=== PATIENT | female | born 1965 | race American Indian/Alaskan Native ===

== ENCOUNTER 2018-03-05 23:15 | Inpatient (IN) | payer MEDICARE, OTHER ==
[2018-03-05 23:17] VITALS: BMI 43.9
--- NOTE | 2018-03-06 00:01 | C.PDOC ---
History Of Present Illness 52 y/o female referred to the ED by Dr. Bocanegra for pre-operative labs and admission to the OR. Patient has known peripheral arterial disease and was noted to have poor circulation to the right lower extremity along with black discoloration of the right toe. She had an arteriogram and was recommended to have a re-vascularization procedure. Patient complains of worsening claudication symptoms to both legs, worse on the right vs the left. She denies any fever, chills, chest pain, or SOB. Time Seen by Provider: 03/05/18 23:50 Chief Complaint (Nursing): Medical Clearance History Per: Patient History/Exam Limitations: no limitations Onset/Duration Of Symptoms: Days Current Symptoms Are (Timing): Still Present Past Medical History Reviewed: Historical Data, Nursing Documentation, Vital Signs Vital Signs: Last Vital Signs Temp 97.6 F 03/05/18 23:47 Pulse 89 03/05/18 23:47 Resp 18 03/05/18 23:47 BP 143/80 03/05/18 23:47 Pulse Ox 98 03/06/18 00:18 - Medical History PMH: CAD, CVA, Diabetes (insulin dependent DM), HTN, Hypercholesterolemia Denies: Chronic Kidney Disease Surgical History: Coronary Stent (5 stents) Other Surgeries: Hysterectomy Family History: States: No Known Family Hx - Social History Hx Tobacco Use: No Hx Alcohol Use: No Hx Substance Use: No - Immunization History Hx Tetanus Toxoid Vaccination: No Hx Influenza Vaccination: No Hx Pneumococcal Vaccination: No Review Of Systems Except As Marked, All Systems Reviewed And Found Negative. Constitutional: Negative for: Fever, Chills Cardiovascular: Negative for: Chest Pain Respiratory: Negative for: Shortness of Breath Musculoskeletal: Positive for: Other (discoloration to right great toe, worsening circulation at bilateral LE) Physical Exam - Physical Exam Appears: No Acute Distress, Other (Appears older than stated age) Skin: Warm, Dry Head: Atraumatic, Normacephalic Eye(s): bilateral: Normal Inspection, PERRL, EOMI Nose: Normal Oral Mucosa: Moist Neck: Normal ROM, Supple (with no JVD) Chest: Symmetrical Cardiovascular: Rhythm Regular, No Murmur, Other (S1,S2 are wnl) Respiratory: Normal Breath Sounds, No Rales, No Rhonchi, No Wheezing Gastrointestinal/Abdominal: Soft, No Tenderness, No Distention Extremity: Normal ROM, No Calf Tenderness, Capillary Refill (< 2 sec), Other ( Blackened discoloration of the right great toe, skin is warm to touch) Pulses: Left Dorsalis Pedis: Absent, Right Dorsalis Pedis: Absent Neurological/Psych: Oriented x3, Normal Speech, Normal Cranial Nerves, No Other (focal deficits) ED Course And Treatment - Laboratory Results Result Diagrams: 03/06/18 00:17 03/06/18 00:17 ECG: Interpreted By Me ECG Rhythm: Sinus Rhythm, Nonspecific Changes ECG Interpretation: Normal Interpretation Of ECG: nl ekg O2 Sat by Pulse Oximetry: 98 (RA) Pulse Ox Interpretation: Normal Medical Decision Making Medical Decision Making: Initial impression: Severe peripheral arterial disease with dry gangrene through right great toe Time: 23:59 Plan: * Routine labs * Chest x-ray * IVF hydration * Call placed to Dr. Bocanegra 00:[address] Bocanegra. Patient will be admitted to the OR for surgery in the morning. 00:10 director of residential services paged, will come to evaluate pt in the ER Disposition - Disposition - Scribe Statement The provider has reviewed the documentation as recorded by the Scribe (Michelle Leo) Provider Attestation: All medical record entries made by the Scribe were at my direction and personally dictated by me. I have reviewed the chart and agree that the record accurately reflects my personal performance of the history, physical exam, medical decision making, and the department course for this patient. I have also personally directed, reviewed, and agree with the discharge instructions and disposition.
[2018-03-06 00:22] LABS: BASO % 0.5 % (0.0-2.0); EOS # 0.1 K/uL (0.0-0.7); HEMOGLOBIN 11.3 g/dL (11.0-16.0); LYMPH # 2.3 K/uL (1.0-4.3); LYMPH % 28.4 % (20.0-40.0); MEAN CELL VOLUME 83.3 fL (81.0-99.0); MEAN CORPUSCULAR HEMOGLOBIN 27.4 pg (27.0-31.0); MEAN CORPUSCULAR HGB CONC 32.8 g/dL (33.0-37.0); MEAN PLATELET VOLUME 7.8 fL (7.2-11.7); MONO # 0.7 K/uL (0.0-0.8); MONO % 8.2 % (0.0-10.0); NEUT % 61.9 % (50.0-75.0); RBC 4.13 Mil/uL (3.80-5.20); RED CELL DISTRIBUTION WIDTH 13.5 % (11.5-14.5)
[2018-03-06 00:37] LABS: ALBUMIN 3.9 g/dL (3.5-5.0); ALT/SGPT 9 U/L (9-52); AST/SGOT 23 U/L (14-36); BLOOD UREA NITROGEN 18 mg/dL (7-17); CALCIUM 9.3 mg/dl (8.6-10.4); GFR AFRICAN-AMERICAN > 60; GFR NON-AFRICAN AMERICAN > 60
[2018-03-06] MEDS ORDERED: HYDROmorphone 1 mg/ml ISec IVP PRN (00:45)
--- NOTE | 2018-03-06 00:53 | CP.PCM.HP ---
History of Present Illness - History of Present Illness History of Present Illness: Vascular surgery H & P for Dr. Bocanegra-Bianca Salgado, PGY-1 Pt S & E at bedside. 52F w/PMH sig for PVD and other co-morbidities admitted for R hallux gangrene. Pt reports pain x 3 wks with subsequent tissue deterioration. Pain is constant , "tight" sensation, radiates up leg, variable in intensity. Reports taking oxycodone at home for pain with some relief. Pt saw shop fitter then syrup maker cook for evaluation with recommendation to see Dr. Bocanegra. Pt sent in by Dr. Bocanegra with plans for angio. Admits to numbness, tingling, low back pain, vision changes, chronic constipation, and L sided motor weakness (chronic) . Denies N & V, F & C, recent illness, changes to bladder habits, other complaints. PMH: PVD, DM, HTN, HLD, CAD, CVA x 4, VA x 1, hx gallstones, chronic constipation PSH: L 3rd digit sx, PCI s/p stents x 5, hx R groin abscess I & D All: NKDA SH: Denies ETOH, tobacco, illicit drug use Present on Admission - Present on Admission Any Indicators Present on Admission: No History of DVT/PE: No History of Uncontrolled Diabetes: No Urinary Catheter: No Decubitus Ulcer Present: No Review of Systems - Review of Systems All systems: reviewed and no additional remarkable complaints except - Constitutional Constitutional: Weakness (residual, L sided (chronic)). absent: Chills, Fever, Headache - EENT Eyes: Change in Vision (chronic) Ears: absent: Dizziness Nose/Mouth/Throat: absent: Sore Throat - Cardiovascular Cardiovascular: Chest Pain (occasional), Dyspnea on Exertion, Leg Edema (chronic ). absent: Palpitations - Respiratory Respiratory: absent: Cough - Gastrointestinal Gastrointestinal: Constipation (chronic). absent: Abdominal Pain, Change in Bowel Habits, Diarrhea, Nausea, Vomiting - Genitourinary Genitourinary: absent: Change in Urinary Stream, Dysuria - Musculoskeletal Musculoskeletal: Back Pain (low, chronic), Muscle Weakness (L sided, chronic), Numbness (chronic), Tingling (chronic) - Integumentary Integumentary: absent: New Lesions - Neurological Neurological: Numbness, Tingling - Psychiatric Psychiatric: absent: Change in Appetite Past Patient History - Infectious Disease Hx of Infectious Diseases: None - Past Social History Smoking Status: Never Smoked - CARDIAC Hx Hypercholesterolemia: Yes Hx Hypertension: Yes - NEUROLOGICAL HX Cerebrovascular Accident: Yes - RENAL Hx Chronic Kidney Disease: No - ENDOCRINE/METABOLIC Hx Diabetes Mellitus Type 2: Yes - PSYCHIATRIC Hx Substance Use: No - SURGICAL HISTORY Hx Coronary Stent: Yes (5 stents) - ANESTHESIA Hx Anesthesia: Yes Hx Anesthesia Reactions: No Meds Allergies/Adverse Reactions: Allergies Allergy/AdvReac Type Severity Reaction Status Date / Time morphine Allergy Verified 03/05/18 23:48 Physical Exam - Constitutional Appears: Non-toxic, No Acute Distress - Head Exam Head Exam: ATRAUMATIC, NORMAL INSPECTION, NORMOCEPHALIC - Eye Exam Eye Exam: EOMI, Normal appearance - ENT Exam ENT Exam: Mucous Membranes Moist, Normal Exam - Neck Exam Neck exam: Positive for: Full Rom, Normal Inspection - Respiratory Exam Respiratory Exam: NORMAL BREATHING PATTERN - Cardiovascular Exam Cardiovascular Exam: REGULAR RHYTHM, +S1, +S2 - GI/Abdominal Exam GI & Abdominal Exam: Soft. absent: Distended (obese), Tenderness - Extremities Exam Extremities exam: Positive for: tenderness (B/L LE). Negative for: normal inspection (R hallux skin darkened), pedal pulses present (non palpable DP & TP B/L) - Neurological Exam Neurological exam: Alert, CN II-XII Intact, Oriented x3 - Psychiatric Exam Psychiatric exam: Normal Affect, Normal Mood - Skin Skin Exam: Dry, Intact, Normal Color (excluding R hallux, see extremity exam for findings), Warm Results - Vital Signs Recent Vital Signs: Last Vital Signs Temp 97.6 F 03/05/18 23:47 Pulse 89 03/05/18 23:47 Resp 18 03/05/18 23:47 BP 143/80 03/05/18 23:47 Pulse Ox 98 03/06/18 00:18 - Labs Result Diagrams: 03/06/18 00:17 03/06/18 00:17 Labs: Laboratory Results - last 24 hr 03/05/18 03/06/18 03/06/18 23:44 00:17 00:17 WBC 8.0 RBC 4.13 Hgb 11.3 Hct 34.4 MCV 83.3 MCH 27.4 MCHC 32.8 L RDW 13.5 Plt Count 327 D MPV 7.8 Neut % (Auto) 61.9 Lymph % (Auto) 28.4 [place] % (Auto) 8.2 Eos % (Auto) 1.0 Baso % (Auto) 0.5 Neut # (Auto) 5.0 Lymph # (Auto) 2.3 [place] # (Auto) 0.7 Eos # (Auto) 0.1 Baso # (Auto) 0.0 Sodium 140 Potassium 4.1 Chloride 99 Carbon Dioxide 27 Anion Gap 18 BUN 18 H Creatinine 0.7 Est GFR ( Amer) > 60 Est GFR (Non-Af Amer) > 60 POC Glucose (mg/dL) 278 H Random Glucose 309 H Calcium 9.3 Total Bilirubin 0.5 AST 23 ALT 9 D Alkaline Phosphatase 133 H Total Protein 8.0 Albumin 3.9 Globulin 4.0 H Albumin/Globulin Ratio 1.0 Assessment & Plan - Assessment and Plan (Free Text) Assessment: 52F w/PMH sig for PVD and other comorbidities admitted for R hallux gangrene Plan: Admit to med-surg VS Q4H NPO pMN Plans for angio tomorrow consent in chart pain control ISS Anti-emetic IVF ISS Accuchecks FU EKG FU CXR Plan to resume home meds DW attending Naomi, PGY-1 - Date & Time Date: 03/06/18 Time: 00:55 Decision To Admit - Pt Status Changed To: Hospital Disposition Of: Inpatient - Admit Certification Admit to Inpatient:: After my assessment, the patient will require hospitalization for at least two midnights. This is because of the severity of symptoms shown, intensity of services needed, and/or the medical risk in this patient being treated as an outpatient. - InPatient: Physician Admission Certification:: Need for vascular surgery intervention - . Bed Request Type: Regular Admitting Physician: Phil Bocanegra Jr.
[2018-03-06] MEDS: Sodium Chloride 0.9% 1,000 ML IV SCH ×2 (00:59→09:19)
[2018-03-06 03:12] VITALS: RESP 20
[2018-03-06] MEDS ORDERED: (Novolin 70/30) NPH/Regular 70/30 Units/ml 10 ml vial SC SCH ×2 (07:30→11:30)
[2018-03-06] MEDS ORDERED: (Novolin R) Insulin Human Regular 100 units/ml vial SC SCH ×2 (11:30→12:22)
[2018-03-06 12:32] LABS: INR 0.9; PROTHROMBIN TIME 10.7 SECONDS (9.7-12.2)
--- NOTE | 2018-03-06 12:55 | RAD ---
PROCEDURE: CHEST RADIOGRAPH, 1 VIEW HISTORY: SOB COMPARISON: 05/29/2013 FINDINGS: LUNGS: Clear. PLEURA: No pneumothorax or pleural fluid seen. CARDIOVASCULAR: No radiographic findings to suggest acute or significant cardiovascular disease. OSSEOUS STRUCTURES: No significant abnormalities. VISUALIZED UPPER ABDOMEN: Normal. OTHER FINDINGS: None. IMPRESSION: No active disease. No acute/significant interval changes.
[2018-03-06] MEDS ORDERED: Midazolam 2 MG/2 ML VIAL ONE (13:31)
--- NOTE | 2018-03-06 15:31 | PCM.SURG1 ---
Surgeon's Initial Post Op Note - Surgeon's Notes Surgeon: alicja Marketing Operations Manager: 0 Type of Anesthesia: IV Sedation Anesthesia Administered By: perez abraham Pre-Operative Diagnosis: gangrene right foot/great toe Operative Findings: right common femoral stenosis 40%. occlusion proximal right sfa. completion films showed dissection below treated area. perclose left groin Post-Operative Diagnosis: same Operation Performed: aortofemoral angiogram via left groin. selective angiogram right femoral artery. pathway atherectomy of right sfa/food assembler kitchen. dcb angioplasty. 5x80 stent right sfa Specimen/Specimens Removed: 0 Estimated Blood Loss: EBL {In ML}: 25 Blood Products Given: N/A Drains Used: No Drains Post-Op Condition: Good Date of Surgery/Procedure: 03/06/18 Time of Surgery/Procedure: 15:33
[2018-03-06] MEDS ORDERED: Dextrose 5%/0.45% NS 1,000 ML IV SCH (15:45)
[2018-03-06 17:34] VITALS: BP 144/89; PULSE 73; TEMP 97.4; O2SAT 98
--- NOTE | 2018-03-06 18:48 | CP.PCM.DIS ---
Provider - Provider Date of Admission: 03/06/18 00:34 Attending physician: Phil Bocanegra Jr, MD Time Spent in preparation of Discharge (in minutes): 35 Hospital Course - Lab Results Lab Results: Most Recent Lab Values WBC 8.0 K/uL (4.8-10.8) 03/06/18 00:17 RBC 4.13 Mil/uL (3.80-5.20) 03/06/18 00:17 Hgb 11.3 g/dL (11.0-16.0) 03/06/18 00:17 Hct 34.4 % (34.0-47.0) 03/06/18 00:17 MCV 83.3 fL (81.0-99.0) 03/06/18 00:17 MCH 27.4 pg (27.0-31.0) 03/06/18 00:17 MCHC 32.8 g/dL (33.0-37.0) L 03/06/18 00:17 RDW 13.5 % (11.5-14.5) 03/06/18 00:17 Plt Count 327 K/uL (130-400) D 03/06/18 00:17 MPV 7.8 fL (7.2-11.7) 03/06/18 00:17 Neut % (Auto) 61.9 % (50.0-75.0) 03/06/18 00:17 Lymph % (Auto) 28.4 % (20.0-40.0) 03/06/18 00:17 [place] % (Auto) 8.2 % (0.0-10.0) 03/06/18 00:17 Eos % (Auto) 1.0 % (0.0-4.0) 03/06/18 00:17 Baso % (Auto) 0.5 % (0.0-2.0) 03/06/18 00:17 Neut # (Auto) 5.0 K/uL (1.8-7.0) 03/06/18 00:17 Lymph # (Auto) 2.3 K/uL (1.0-4.3) 03/06/18 00:17 [place] # (Auto) 0.7 K/uL (0.0-0.8) 03/06/18 00:17 Eos # (Auto) 0.1 K/uL (0.0-0.7) 03/06/18 00:17 Baso # (Auto) 0.0 K/uL (0.0-0.2) 03/06/18 00:17 PT 10.7 SECONDS (9.7-12.2) 03/06/18 12:20 INR 0.9 03/06/18 12:20 APTT 29 SECONDS (21-34) 03/06/18 12:20 Sodium 140 mmol/L (132-148) 03/06/18 00:17 Potassium 4.1 mmol/L (3.6-5.2) 03/06/18 00:17 Chloride 99 mmol/L (98-107) 03/06/18 00:17 Carbon Dioxide 27 mmol/L (22-30) 03/06/18 00:17 Anion Gap 18 (10-20) 03/06/18 00:17 BUN 18 mg/dL (7-17) H 03/06/18 00:17 Creatinine 0.7 mg/dL (0.7-1.2) 03/06/18 00:17 Est GFR ( Amer) > 60 03/06/18 00:17 Est GFR (Non-Af Amer) > 60 03/06/18 00:17 POC Glucose (mg/dL) 283 mg/dL (65-110) H 03/06/18 16:30 Random Glucose 309 mg/dL (65-105) H 03/06/18 00:17 Calcium 9.3 mg/dl (8.6-10.4) 03/06/18 00:17 Total Bilirubin 0.5 mg/dL (0.2-1.3) 03/06/18 00:17 AST 23 U/L (14-36) 03/06/18 00:17 ALT 9 U/L (9-52) D 03/06/18 00:17 Alkaline Phosphatase 133 U/L (38-126) H 03/06/18 00:17 Total Protein 8.0 g/dL (6.3-8.3) 03/06/18 00:17 Albumin 3.9 g/dL (3.5-5.0) 03/06/18 00:17 Globulin 4.0 gm/dL (2.2-3.9) H 04/17/18 00:17 Albumin/Globulin Ratio 1.0 (1.0-2.1) 03/06/18 00:17 Blood Type AB POSITIVE 03/06/18 00:17 Antibody Screen Negative 03/06/18 00:17 Discharge Exam - Head Exam Head Exam: ATRAUMATIC, NORMAL INSPECTION, NORMOCEPHALIC Discharge Plan - Follow Up Plan Condition: GOOD Disposition: HOME/ ROUTINE Additional Instructions: It is ok for patient to ambulate Remove the dressing tomorrow if there is no bleeding Call Dr. Bocanegra's office for any severe abdominal or back pain, fever greater than 100.4F that doesn't improve with tylenol, severe pain in the right leg with numbness, weakness, coldness, or pallor of the leg, or any other concerning symptoms. Make a follow up appointment with Dr. Bocanegra in his office in 1 weeks. Referrals: Phil Bocanegra Jr., MD [Staff Provider] -
[2018-03-06] MEDS ORDERED: (Novolog) Insulin Aspart, Recombinant 100 u/ml 10 ml vial SC SCH (22:00)
[2018-03-08] MEDS ORDERED: Pneumococcal 23-Valent Vaccine IM ONE (14:00)
== END 2018-03-06 19:47 | disposition home or self-care (01) | DRG 271 ==
LOC: C.ER 23:15 → C.9E 03-06 00:34 → C.5S 03-06 02:22
PROVIDERS: ADMIT Surgery Vascular Surgery; ATTEND Surgery Vascular Surgery
PROC: 04CK3ZZ Extirpation of Matter from Right Femoral Artery, Percutaneous Approach (ICD-10-PCS; principal; 2018-03-06)
PROC: 047K3DZ Dilation of Right Femoral Artery with Intraluminal Device, Percutaneous Approach (ICD-10-PCS; 2018-03-06)
DX: E11.52 Type 2 diabetes mellitus with diabetic peripheral angiopathy with gangrene (principal); I96 Gangrene, not elsewhere classified; Z68.41 Body mass index [BMI] 40.0-44.9, adult; E78.00 Pure hypercholesterolemia, unspecified; E78.5 Hyperlipidemia, unspecified; I10 Essential (primary) hypertension; I25.10 Atherosclerotic heart disease of native coronary artery without angina pectoris; K59.09 Other constipation; Z79.4 Long term (current) use of insulin; E66.9 Obesity, unspecified; I77.1 Stricture of artery

== ENCOUNTER 2018-09-21 00:12 | Inpatient (IN) | payer MEDICARE, OTHER ==
[2018-09-21 00:12] VITALS: BMI 43.9
--- NOTE | 2018-09-21 00:33 | C.PDOC ---
History Of Present Illness Presents to the ED complaining of pain to the great toe. The patient states she saw her pullboat engineer earlier today, Dr. Hunter, who referred her to the ED due to early gangrene. The patient reports pain to the right foot. Time Seen by Provider: 09/21/18 00:33 Chief Complaint (Nursing): Lower Extremity Problem/Injury History Per: Patient History/Exam Limitations: no limitations Onset/Duration Of Symptoms: Hrs Current Symptoms Are (Timing): Still Present Severity: Moderate Pain Scale Rating Of: 5 Recent travel outside of the [place]: No Past Medical History Reviewed: Historical Data, Nursing Documentation, Vital Signs Vital Signs: Last Vital Signs Temp 98.9 F 09/21/18 00:17 Pulse 101 H 09/21/18 00:17 Resp 20 09/21/18 00:17 BP 173/89 H 09/21/18 00:17 Pulse Ox 99 09/21/18 00:17 - Medical History PMH: CAD, CVA, Diabetes (insulin dependent DM), HTN, Hypercholesterolemia Denies: Chronic Kidney Disease Surgical History: Coronary Stent (5 stents) - [facility] Procedures DILATION OF R FEM ART WITH INTRALUM DEV, PERC APPROACH (03/06/18) EXTIRPATION OF MATTER FROM R FEM ART, PERC APPROACH (03/06/18) Family History: States: Unknown Family Hx - Social History Hx Tobacco Use: No Hx Alcohol Use: No Hx Substance Use: No - Immunization History Hx Tetanus Toxoid Vaccination: No Hx Influenza Vaccination: No Hx Pneumococcal Vaccination: No Review Of Systems Constitutional: Negative for: Fever, Chills Eyes: Negative for: Vision Change ENT: Negative for: Throat Pain Cardiovascular: Negative for: Chest Pain Respiratory: Negative for: Shortness of Breath Gastrointestinal: Negative for: Abdominal Pain Genitourinary: Negative for: Dysuria Musculoskeletal: Positive for: Foot Pain (right great toe pain) Skin: Positive for: Lesions Neurological: Negative for: Weakness Psych: Negative for: Anxiety Physical Exam - Physical Exam Appears: Non-toxic, No Acute Distress Skin: Warm, Dry Head: Normacephalic Eye(s): bilateral: Normal Inspection Oral Mucosa: Moist Neck: Trachea Midline, Supple Chest: Symmetrical Cardiovascular: Rhythm Regular Respiratory: No Rales, No Rhonchi, No Wheezing Gastrointestinal/Abdominal: Soft, No Tenderness, No Distention Back: Normal Inspection Extremity: Tenderness (to palpation-- right great toe) Extremity: Right: Other (necrosis, purulent collection on ventral aspect, sensory intact and moves all toes), Bilateral: Atraumatic Pulses: Left Dorsalis Pedis: Decreased, Right Dorsalis Pedis: Decreased Neurological/Psych: Oriented x3, Normal Speech, Normal Cognition Gait: Steady ED Course And Treatment - Laboratory Results Result Diagrams: 09/21/18 01:03 09/21/18 01:03 ECG: Interpreted By Me, Viewed By Me ECG Rhythm: Sinus Rhythm (92), Nonspecific Changes O2 Sat by Pulse Oximetry: 99 (RA) Pulse Ox Interpretation: Normal - Radiology CXR: Interpreted by Me, Viewed By Me CXR Interpretation: No: Infiltrates, Fracture, Pnemothorax Disposition Discussed With DrAudra: Maurice Ly Comment: accepted the pt on his service and took over the care at Doctor Will See Patient In The: Hospital Counseled Patient/Family Regarding: Studies Performed, Diagnosis - Disposition Disposition: HOSPITALIZED Disposition Time: 00:33 Condition: FAIR Forms: [employer] (Irish) - POA Present On Arrival: Poor Glycemic Control, Pressure Ulcer - Clinical Impression Clinical Impression: Joint swelling, Gangrene of toe of right foot, Hyperglycemia - Scribe Statement The provider has reviewed the documentation as recorded by the Samuel Romero Provider Attestation: All medical record entries made by the Samuel were at my direction and personally dictated by me. I have reviewed the chart and agree that the record accurately reflects my personal performance of the history, physical exam, medical decision making, and the department course for this patient. I have also personally directed, reviewed, and agree with the discharge instructions and disposition. Decision To Admit - Pt Status Changed To: Hospital Disposition Of: Inpatient - Admit Certification Admit to Inpatient:: After my assessment, the patient will require hospitalization for at least two midnights. This is because of the severity of symptoms shown, intensity of services needed, and/or the medical risk in this patient being treated as an outpatient. - InPatient: Physician Admission Certification: I certify that this patient requires 2 or more midnights of care for the following reason:: After my assessment, the patient will require hospitalization for at least two midnights. This is because of the severity of symptoms shown, intensity of services needed, and/or the medical risk in this patient being treated as an outpatient. - . Bed Request Type: Regular Admitting Physician: Maurice Ly Patient Diagnosis: Joint swelling, Gangrene of toe of right foot, Hyperglycemia
[2018-09-21 01:06] LABS: BASO % 0.5 % (0.0-2.0); EOS # 0.1 K/uL (0.0-0.7); LYMPH # 2.6 K/uL (1.0-4.3); LYMPH % 29.4 % (20.0-40.0); MEAN CELL VOLUME 82.5 fL (81.0-99.0); MEAN CORPUSCULAR HEMOGLOBIN 27.5 pg (27.0-31.0); MEAN CORPUSCULAR HGB CONC 33.3 g/dL (33.0-37.0); MEAN PLATELET VOLUME 7.6 fL (7.2-11.7); MONO # 0.8 K/uL (0.0-0.8); MONO % 8.7 % (0.0-10.0); NEUT # 5.4 K/uL (1.8-7.0); NEUT % 60.4 % (50.0-75.0); RBC 4.01 Mil/uL (3.80-5.20); RED CELL DISTRIBUTION WIDTH 13.6 % (11.5-14.5)
[2018-09-21 01:15] LABS: INR 1.2; PROTHROMBIN TIME 12.6 SECONDS (9.7-12.2)
[2018-09-21 01:15] LABS: VENOUS BLOOD GAS BASE EXCESS 1.1 mmol/L (0.0-2.0); VENOUS BLOOD GAS PCO2 55 mmHg (40-60); VENOUS BLOOD GAS PO2 21 mm/Hg (30-55); VENOUS BLOOD PH 7.32 (7.32-7.43)
[2018-09-21] MEDS ORDERED: Sodium Chloride 0.9% 1,000 ML IV ONE ×2 (01:17→04:04)
[2018-09-21] MEDS ORDERED: Sodium Chloride 0.9% 2,000 ML IV ONE (01:19)
[2018-09-21] MEDS ORDERED: Clindamycin 600mg/50ml NS 600 MG/50 ML BAG IVPB ONE (01:25)
[2018-09-21 01:26] LABS: ALB/GLOB RATIO 1.1 (1.0-2.1); ALBUMIN 4.1 g/dL (3.5-5.0); ALT/SGPT < 6 U/L (9-52); AST/SGOT 11 U/L (14-36); BLOOD UREA NITROGEN 20 mg/dL (7-17); CALCIUM 9.4 mg/dl (8.6-10.4); GFR NON-AFRICAN AMERICAN 43
[2018-09-21] MEDS ORDERED: Vancomycin 1 GM 1 GM/250 ML BAG IVPB SCH (01:30)
[2018-09-21] MEDS ORDERED: Vancomycin 1 GM 1 GM/250 ML BAG IVPB STA (02:00)
[2018-09-21] MEDS ORDERED: Vancomycin 1 GM 1 GM/250 ML BAG IVPB ONE (02:06)
[2018-09-21] MEDS ORDERED: (Novolin N) Insulin Human Isophane (NPH) 100 u/ml 10 ml vial SC STA (04:05)
[2018-09-21] MEDS ORDERED: (Novolin R) Insulin Human Regular 100 units/ml vial SC ONE (04:18)
[2018-09-21] MEDS ORDERED: Sodium Chloride 0.9% 1,000 ML ONE (04:21)
[2018-09-21] MEDS ORDERED: (Novolin R) Insulin Human Regular 100 units/ml vial ONE (04:22)
[2018-09-21] MEDS: Vancomycin 1 gm/NS 200 ml 1 GM/200 ML BAG IVPB SCH ×2 (05:45→17:39)
[2018-09-21] MEDS: Piperacill/Tazo 3.375gm in Dex 3.375 GM/50 ML BAG IVPB SCH ×3 (05:47→17:36)
[2018-09-21 06:04] LABS: HDL CHOLESTEROL 22 mg/dL (30-70)
[2018-09-21 06:15] LABS: LDL CHOLESTEROL 114 mg/dL (0-129)
[2018-09-21] MEDS: (Novolin R) Insulin Human Regular 100 units/ml vial SC SCH ×4 (08:21→21:41)
--- NOTE | 2018-09-21 08:35 | RAD ---
Date of service: 09/21/2018 PROCEDURE: CHEST RADIOGRAPH, 1 VIEW HISTORY: pre op COMPARISON: None available. FINDINGS: LUNGS: There are low lung volumes. The lungs are well inflated and clear. PLEURA: No pneumothorax or pleural effusion. CARDIOVASCULAR: There is mild cardiomegaly. No aortic atherosclerotic calcifications present. OSSEOUS STRUCTURES: Within normal limits for the patient's age. VISUALIZED UPPER ABDOMEN: Normal. OTHER FINDINGS: None. IMPRESSION: No active pulmonary disease.
[2018-09-21] MEDS: Enoxaparin 40 mg Syringe SC SCH (09:48)
[2018-09-21] MEDS: Aspirin-Dipyridamole 200-25 mg ER Cap PO SCH (09:50)
[2018-09-21] MEDS: Metoprolol Succinate 50 mg XL Tab PO SCH (09:50)
[2018-09-21] MEDS ORDERED: METOPROLOL SU PO SCH (10:00)
[2018-09-21] MEDS ORDERED: HYDROCHLOROTHIAZ PO SCH (10:00)
--- NOTE | 2018-09-21 11:39 | CP.PCM.CON ---
History of Present Illness - History of Present Illness History of Present Illness: Podiatry Consult Note for Dr. Montoya 53F with PMHx of CAD, PVD, HTN, HLD, DM2 seen and evaluated at bedside with attending Dr. Montoya for right hallux and 2nd digit discoloration. Patient reports 10/10 pain. Reports pain starts from the calf and radiates to the toes. Reports pain in big toe started 1 week ago. Describes pain as a throbbing pain and shooting pain. Relates there is no changes in color or increase swelling or difference to the toe in the last week. Denies any trauma or injury to the big toe. Denies nausea, fever, shortness of breath, chest pains or chills. PMHx: CAD, PVD, HTN, HLD, DM2 PSH: hysterectomy, right foot surgery, stents ALL: NKDA MEDS: see MAR list FH: father- CAD, DM, mother- DM, colon cancer SH: denies smoking drinking or illicit drug use Past Patient History - Infectious Disease Hx of Infectious Diseases: None - Past Medical History & Family History Past Medical History?: Yes - Past Social History Smoking Status: Never Smoked - CARDIAC Hx Hypercholesterolemia: Yes Hx Hypertension: Yes - NEUROLOGICAL HX Cerebrovascular Accident: Yes - RENAL Hx Chronic Kidney Disease: No - ENDOCRINE/METABOLIC Hx Diabetes Mellitus Type 2: Yes - MUSCULOSKELETAL/RHEUMATOLOGICAL Hx Falls: No - PSYCHIATRIC Hx Substance Use: No - SURGICAL HISTORY Hx Coronary Stent: Yes (5 stents) - ANESTHESIA Hx Anesthesia: Yes Hx Anesthesia Reactions: No Meds Allergies/Adverse Reactions: Allergies Allergy/AdvReac Type Severity Reaction Status Date / Time No Known Allergies Allergy Verified 09/21/18 00:23 - Medications Medications: Current Medications Clopidogrel Bisulfate (Plavix) 75 mg PO DAILY [facility] Last Admin: 09/21/18 09:48 Dose: 75 mg Dipyridamole/Aspirin (Aggrenox 25-200 Mg) 1 ea PO DAILY [facility] Last Admin: 09/21/18 09:50 Dose: 1 ea Enoxaparin Sodium (Lovenox) 40 mg SC DAILY [facility] Last Admin: 09/21/18 09:48 Dose: Not Given Gabapentin (Neurontin) 100 mg PO BID [facility] Last Admin: 09/21/18 09:48 Dose: 100 mg Hydrochlorothiazide (Microzide) 12.5 mg PO DAILY [facility] Last Admin: 09/21/18 09:49 Dose: 12.5 mg Piperacillin Sod/Tazobactam Sod (Zosyn 3.375 Gm Iv Premix) 3.375 gm in 50 mls @ 100 mls/hr IVPB Q6H [facility]; Protocol Last Admin: 09/21/18 05:47 Dose: 100 mls/hr Vancomycin/Sodium Chloride (Vancomycin 1 Gm/Ns 200 Ml) 1 gm in 200 mls @ 133 mls/hr IVPB Q12H [facility]; Protocol Stop: 09/26/18 05:46 Last Admin: 09/21/18 05:45 Dose: Not Given Insulin Human Regular (Novolin R) 0 unit SC ACHS [facility]; Protocol Last Admin: 09/21/18 08:21 Dose: 6 units Metoclopramide HCl (Reglan) 5 mg PO BID [facility] Last Admin: 09/21/18 09:48 Dose: 5 mg Metoprolol Succinate (Toprol Xl) 50 mg PO DAILY [facility] Last Admin: 09/21/18 09:50 Dose: 50 mg Rosuvastatin Calcium (Crestor) 40 mg PO [facility] Physical Exam - Constitutional Appears: Well, Non-toxic, No Acute Distress - Extremities Exam Extremities exam: Negative for: calf tenderness Additional comments: VASC: DP and PT unpalpable, temperature gradient warm to cool, no digital hair noted, nonpitting edema noted to the right hallux ORTHO: severe pain with palpation to the entire hallux, MM is 4/5 in all four compartments: dorsiflexion, plantarflexion, inversion, and eversion NEURO: gross sensation intact, protective sensation diminished DERM: blue-melissa discoloration noted to the 2nd digit and hallux, tiny circular lesion noted to the plantar aspect of the hallux measuring approximately .5 cm x .5cm in diameter. does not appear to probe to bone. .2 cc of purulence drainage expressed. no streaking noted, no undermining or tunneling noted, mild fluctanance noted. - Psychiatric Exam Psychiatric exam: Normal Affect, Normal Mood Results - Vital Signs Recent Vital Signs: Last Vital Signs Temp 97.6 F 09/21/18 08:19 Pulse 84 09/21/18 09:47 Resp 20 09/21/18 08:19 BP 149/81 09/21/18 09:47 Pulse Ox 97 09/21/18 08:19 - Labs Result Diagrams: 09/21/18 01:03 09/21/18 01:03 Labs: Laboratory Results - last 24 hr 09/21/18 09/21/18 09/21/18 00:55 01:03 01:03 WBC 9.0 RBC 4.01 Hgb 11.0 Hct 33.1 L MCV 82.5 MCH 27.5 MCHC 33.3 RDW 13.6 Plt Count 316 MPV 7.6 Neut % (Auto) 60.4 Lymph % (Auto) 29.4 [place] % (Auto) 8.7 Eos % (Auto) 1.0 Baso % (Auto) 0.5 Neut # (Auto) 5.4 Lymph # (Auto) 2.6 [place] # (Auto) 0.8 Eos # (Auto) 0.1 Baso # (Auto) 0.0 PT INR APTT pO2 21 L VBG pH 7.32 VBG pCO2 55 VBG HCO3 23.9 VBG Total CO2 30.0 H VBG O2 Sat (Calc) 35.4 L VBG Base Excess 1.1 VBG Potassium 3.6 Sodium 142.0 139 Chloride 106.0 102 Glucose 450 H* Lactate 4.3 H* Crit Value Called To Dimitri brannon auto design checker Crit Value Called By Pebbles tabor rt Crit Value Read Back Y Blood Gas Notified Time 114 Potassium 4.0 Carbon Dioxide 26 Anion Gap 15 BUN 20 H Creatinine 1.3 H Est GFR ( Amer) 52 Est GFR (Non-Af Amer) 43 POC Glucose (mg/dL) Random Glucose 466 H* D Hemoglobin A1c Lactic Acid Calcium 9.4 Total Bilirubin 0.4 AST 11 L D ALT < 6 L D Alkaline Phosphatase 165 H D Total Protein 7.8 Albumin 4.1 Globulin 3.7 Albumin/Globulin Ratio 1.1 Triglycerides Cholesterol LDL Cholesterol Direct HDL Cholesterol Venous Blood Potassium 3.6 B-Hydroxybutyrate 09/21/18 09/21/18 09/21/18 01:03 02:22 03:28 WBC RBC Hgb Hct MCV MCH MCHC RDW Plt Count MPV Neut % (Auto) Lymph % (Auto) [place] % (Auto) Eos % (Auto) Baso % (Auto) Neut # (Auto) Lymph # (Auto) [place] # (Auto) Eos # (Auto) Baso # (Auto) PT 12.6 H INR 1.2 APTT 37 H pO2 VBG pH VBG pCO2 VBG HCO3 VBG Total CO2 VBG O2 Sat (Calc) VBG Base Excess VBG Potassium Sodium Chloride Glucose Lactate Crit Value Called To Crit Value Called By Crit Value Read Back Blood Gas Notified Time Potassium Carbon Dioxide Anion Gap BUN Creatinine Est GFR ( Amer) Est GFR (Non-Af Amer) POC Glucose (mg/dL) 393 H Random Glucose Hemoglobin A1c Lactic Acid Calcium Total Bilirubin AST ALT Alkaline Phosphatase Total Protein Albumin Globulin Albumin/Globulin Ratio Triglycerides Cholesterol LDL Cholesterol Direct HDL Cholesterol Venous Blood Potassium B-Hydroxybutyrate 0.08 09/21/18 09/21/18 09/21/18 05:51 05:51 06:13 WBC RBC Hgb Hct MCV MCH MCHC RDW Plt Count MPV Neut % (Auto) Lymph % (Auto) [place] % (Auto) Eos % (Auto) Baso % (Auto) Neut # (Auto) Lymph # (Auto) [place] # (Auto) Eos # (Auto) Baso # (Auto) PT INR APTT pO2 VBG pH VBG pCO2 VBG HCO3 VBG Total CO2 VBG O2 Sat (Calc) VBG Base Excess VBG Potassium Sodium Chloride Glucose Lactate Crit Value Called To Crit Value Called By Crit Value Read Back Blood Gas Notified Time Potassium Carbon Dioxide Anion Gap BUN Creatinine Est GFR ( Amer) Est GFR (Non-Af Amer) POC Glucose (mg/dL) 341 H Random Glucose Hemoglobin A1c 14.2 H Lactic Acid Calcium Total Bilirubin AST ALT Alkaline Phosphatase Total Protein Albumin Globulin Albumin/Globulin Ratio Triglycerides 306 H D Cholesterol 184 LDL Cholesterol Direct 114 HDL Cholesterol 22 L Venous Blood Potassium B-Hydroxybutyrate 09/21/18 10:16 WBC RBC Hgb Hct MCV MCH MCHC RDW Plt Count MPV Neut % (Auto) Lymph % (Auto) [place] % (Auto) Eos % (Auto) Baso % (Auto) Neut # (Auto) Lymph # (Auto) [place] # (Auto) Eos # (Auto) Baso # (Auto) PT INR APTT pO2 VBG pH VBG pCO2 VBG HCO3 VBG Total CO2 VBG O2 Sat (Calc) VBG Base Excess VBG Potassium Sodium Chloride Glucose Lactate Crit Value Called To Crit Value Called By Crit Value Read Back Blood Gas Notified Time Potassium Carbon Dioxide Anion Gap BUN Creatinine Est GFR ( Amer) Est GFR (Non-Af Amer) POC Glucose (mg/dL) Random Glucose Hemoglobin A1c Lactic Acid 1.8 Calcium Total Bilirubin AST ALT Alkaline Phosphatase Total Protein Albumin Globulin Albumin/Globulin Ratio Triglycerides Cholesterol LDL Cholesterol Direct HDL Cholesterol Venous Blood Potassium B-Hydroxybutyrate Assessment & Plan - Assessment and Plan (Free Text) Assessment: 53F with PMH of CAD, PVD, HTN, HLD, DM2 with right hallux swelling and pain and 2nd digit discoloration secondary to PVD and DM Plan: Patient seen and examined with attending Dr. Montoya Chart, labs, vitals reviewed X-rays ordered-pending MRI ordered to r/o abscess and OM-pending ESR, CRP ordered F/U arterial duplex Wound culture taken of right hallux Cleansed hallux with hydrogen peroxide soaked gauze, dsd, and light rashawn Patient may WBAT in surgical shoe Vascular intervention per vascular Continue abx per ID Pain management per primary team Will continue to follow patient while in house Thank you for allowing us to participate in patient's care
--- NOTE | 2018-09-21 12:53 | RAD ---
PROCEDURE: Radiographs of the right great toe. TECHNIQUE:: AP radiograph of the right foot, with oblique and lateral view of the right great toe. COMPARISON: None. FINDINGS: BONES: Transverse lucency through the 1st distal phalanx no obvious periosteal reaction. Hammertoe deformities. JOINTS: Normal. SOFT TISSUES: Normal. OTHER FINDINGS: Small inferior by the plantar calcaneal spur. Achilles enthesophyte. IMPRESSION: Transverse lucency through the 1st distal phalanx which may be postsurgical, posttraumatic or postinfectious in etiology. MRI of the forefoot can be obtained for further evaluation as clinically warranted.
--- NOTE | 2018-09-21 14:09 | CP.PCM.CON ---
History of Present Illness - History of Present Illness History of Present Illness: consult note for Dr. Bocanegra Patient is a 53 year old female with PMHx significant for vascular disease including PVD, CAD, CVAx4, secondary to HTN, HLD, DM2, presents to the ED with complaints of swelling and worsening RLE pain x1 week. Patient reports pain is sharp, localized to her right leg distal to the knee, with pain radiating into her right great toe. Patient reports pain is constant, and worse with exertion. Most recently patient was admitted here in February, for necrosis of right hallux. Aortofemoral angio was performed with balloon angioplasty and arthrectomy of the common femoral artery, balloon angioplasty of the distal external iliac artery, and stent of the proximal superficial femoral artery. Patient reports she compliant with all recommendations and medications. Denies skin changes or decreased sensation. PMHx: PVD, HTN, HLD, DM2, CAD, CVAx4, [place] PSHx: PCI (stents x5), angioplasty w/ stenting, hysterectomy Allergies: NKDA SocHx: denies Review of Systems - Cardiovascular Cardiovascular: Leg Edema (right leg). absent: Chest Pain - Respiratory Respiratory: absent: Dyspnea, Pain on Inspiration - Gastrointestinal Gastrointestinal: absent: Abdominal Pain, Nausea - Genitourinary Genitourinary: Urinary Incontinence - Musculoskeletal Musculoskeletal: Abnormal Gait (2/2 pain), Muscle Cramps (right thigh) Past Patient History - Infectious Disease Hx of Infectious Diseases: None - Past Medical History & Family History Past Medical History?: Yes - Past Social History Smoking Status: Never Smoked - CARDIAC Hx Hypercholesterolemia: Yes Hx Hypertension: Yes - NEUROLOGICAL HX Cerebrovascular Accident: Yes - RENAL Hx Chronic Kidney Disease: No - ENDOCRINE/METABOLIC Hx Diabetes Mellitus Type 2: Yes - MUSCULOSKELETAL/RHEUMATOLOGICAL Hx Falls: No - PSYCHIATRIC Hx Substance Use: No - SURGICAL HISTORY Hx Coronary Stent: Yes (5 stents) - ANESTHESIA Hx Anesthesia: Yes Hx Anesthesia Reactions: No Meds Allergies/Adverse Reactions: Allergies Allergy/AdvReac Type Severity Reaction Status Date / Time No Known Allergies Allergy Verified 09/21/18 00:23 - Medications Medications: Current Medications Clopidogrel Bisulfate (Plavix) 75 mg PO DAILY [facility] Last Admin: 09/21/18 09:48 Dose: 75 mg Dipyridamole/Aspirin (Aggrenox 25-200 Mg) 1 ea PO DAILY [facility] Last Admin: 09/21/18 09:50 Dose: 1 ea Enoxaparin Sodium (Lovenox) 40 mg SC DAILY [facility] Last Admin: 09/21/18 09:48 Dose: Not Given Gabapentin (Neurontin) 100 mg PO BID [facility] Last Admin: 09/21/18 09:48 Dose: 100 mg Hydrochlorothiazide (Microzide) 12.5 mg PO DAILY [facility] Last Admin: 09/21/18 09:49 Dose: 12.5 mg Piperacillin Sod/Tazobactam Sod (Zosyn 3.375 Gm Iv Premix) 3.375 gm in 50 mls @ 100 mls/hr IVPB Q6H [facility]; Protocol Last Admin: 09/21/18 12:25 Dose: 100 mls/hr Vancomycin/Sodium Chloride (Vancomycin 1 Gm/Ns 200 Ml) 1 gm in 200 mls @ 133 mls/hr IVPB Q12H [facility]; Protocol Stop: 09/26/18 05:46 Last Admin: 09/21/18 05:45 Dose: Not Given Insulin Human Regular (Novolin R) 0 unit SC [facility]; Protocol Last Admin: 09/21/18 12:26 Dose: 2 units Metoclopramide HCl (Reglan) 5 mg PO BID [facility] Last Admin: 09/21/18 09:48 Dose: 5 mg Metoprolol Succinate (Toprol Xl) 50 mg PO DAILY [facility] Last Admin: 09/21/18 09:50 Dose: 50 mg Rosuvastatin Calcium (Crestor) 40 mg PO [facility] Physical Exam - Constitutional Appears: Non-toxic, No Acute Distress - Head Exam Head Exam: ATRAUMATIC, NORMAL INSPECTION, NORMOCEPHALIC - Eye Exam Eye Exam: EOMI, Normal appearance - ENT Exam ENT Exam: Mucous Membranes Moist, Normal Exam - Neck Exam Neck exam: Positive for: Normal Inspection - Respiratory Exam Respiratory Exam: Clear to Auscultation Bilateral, NORMAL BREATHING PATTERN - Cardiovascular Exam Cardiovascular Exam: REGULAR RHYTHM. absent: Tachycardia - GI/Abdominal Exam GI & Abdominal Exam: Normal Bowel Sounds, Soft - Extremities Exam Extremities exam: Positive for: calf tenderness (right), tenderness (right), pedal pulses present (with doppler). Negative for: pedal edema Additional comments: Right great and 2nd toe discolored - Neurological Exam Neurological exam: Alert, Oriented x3 - Psychiatric Exam Psychiatric exam: Normal Affect, Normal Mood - Skin Skin Exam: Dry, Warm Results - Vital Signs Recent Vital Signs: Last Vital Signs Temp 97.6 F 09/21/18 08:19 Pulse 84 09/21/18 09:47 Resp 20 09/21/18 08:19 BP 149/81 09/21/18 09:47 Pulse Ox 97 09/21/18 08:19 - Labs Result Diagrams: 09/21/18 01:03 09/21/18 01:03 Labs: Laboratory Results - last 24 hr 09/21/18 09/21/18 09/21/18 00:55 01:03 01:03 WBC 9.0 RBC 4.01 Hgb 11.0 Hct 33.1 L MCV 82.5 MCH 27.5 MCHC 33.3 RDW 13.6 Plt Count 316 MPV 7.6 Neut % (Auto) 60.4 Lymph % (Auto) 29.4 [place] % (Auto) 8.7 Eos % (Auto) 1.0 Baso % (Auto) 0.5 Neut # (Auto) 5.4 Lymph # (Auto) 2.6 [place] # (Auto) 0.8 Eos # (Auto) 0.1 Baso # (Auto) 0.0 PT INR APTT pO2 21 L VBG pH 7.32 VBG pCO2 55 VBG HCO3 23.9 VBG Total CO2 30.0 H VBG O2 Sat (Calc) 35.4 L VBG Base Excess 1.1 VBG Potassium 3.6 Sodium 142.0 139 Chloride 106.0 102 Glucose 450 H* Lactate 4.3 H* Crit Value Called To Dimitri brannon emu farmer Crit Value Called By Pebbles tabor rt Crit Value Read Back Y Blood Gas Notified Time 114 Potassium 4.0 Carbon Dioxide 26 Anion Gap 15 BUN 20 H Creatinine 1.3 H Est GFR ( Amer) 52 Est GFR (Non-Af Amer) 43 POC Glucose (mg/dL) Random Glucose 466 H* D Hemoglobin A1c Lactic Acid Calcium 9.4 Total Bilirubin 0.4 AST 11 L D ALT < 6 L D Alkaline Phosphatase 165 H D Total Protein 7.8 Albumin 4.1 Globulin 3.7 Albumin/Globulin Ratio 1.1 Triglycerides Cholesterol LDL Cholesterol Direct HDL Cholesterol Venous Blood Potassium 3.6 B-Hydroxybutyrate 09/21/18 09/21/18 09/21/18 01:03 02:22 03:28 WBC RBC Hgb Hct MCV MCH MCHC RDW Plt Count MPV Neut % (Auto) Lymph % (Auto) [place] % (Auto) Eos % (Auto) Baso % (Auto) Neut # (Auto) Lymph # (Auto) [place] # (Auto) Eos # (Auto) Baso # (Auto) PT 12.6 H INR 1.2 APTT 37 H pO2 VBG pH VBG pCO2 VBG HCO3 VBG Total CO2 VBG O2 Sat (Calc) VBG Base Excess VBG Potassium Sodium Chloride Glucose Lactate Crit Value Called To Crit Value Called By Crit Value Read Back Blood Gas Notified Time Potassium Carbon Dioxide Anion Gap BUN Creatinine Est GFR ( Amer) Est GFR (Non-Af Amer) POC Glucose (mg/dL) 393 H Random Glucose Hemoglobin A1c Lactic Acid Calcium Total Bilirubin AST ALT Alkaline Phosphatase Total Protein Albumin Globulin Albumin/Globulin Ratio Triglycerides Cholesterol LDL Cholesterol Direct HDL Cholesterol Venous Blood Potassium B-Hydroxybutyrate 0.08 09/21/18 09/21/18 09/21/18 05:51 05:51 06:13 WBC RBC Hgb Hct MCV MCH MCHC RDW Plt Count MPV Neut % (Auto) Lymph % (Auto) [place] % (Auto) Eos % (Auto) Baso % (Auto) Neut # (Auto) Lymph # (Auto) [place] # (Auto) Eos # (Auto) Baso # (Auto) PT INR APTT pO2 VBG pH VBG pCO2 VBG HCO3 VBG Total CO2 VBG O2 Sat (Calc) VBG Base Excess VBG Potassium Sodium Chloride Glucose Lactate Crit Value Called To Crit Value Called By Crit Value Read Back Blood Gas Notified Time Potassium Carbon Dioxide Anion Gap BUN Creatinine Est GFR ( Amer) Est GFR (Non-Af Amer) POC Glucose (mg/dL) 341 H Random Glucose Hemoglobin A1c 14.2 H Lactic Acid Calcium Total Bilirubin AST ALT Alkaline Phosphatase Total Protein Albumin Globulin Albumin/Globulin Ratio Triglycerides 306 H D Cholesterol 184 LDL Cholesterol Direct 114 HDL Cholesterol 22 L Venous Blood Potassium B-Hydroxybutyrate 09/21/18 09/21/18 10:16 12:01 WBC RBC Hgb Hct MCV MCH MCHC RDW Plt Count MPV Neut % (Auto) Lymph % (Auto) [place] % (Auto) Eos % (Auto) Baso % (Auto) Neut # (Auto) Lymph # (Auto) [place] # (Auto) Eos # (Auto) Baso # (Auto) PT INR APTT pO2 VBG pH VBG pCO2 VBG HCO3 VBG Total CO2 VBG O2 Sat (Calc) VBG Base Excess VBG Potassium Sodium Chloride Glucose Lactate Crit Value Called To Crit Value Called By Crit Value Read Back Blood Gas Notified Time Potassium Carbon Dioxide Anion Gap BUN Creatinine Est GFR ( Amer) Est GFR (Non-Af Amer) POC Glucose (mg/dL) 167 H Random Glucose Hemoglobin A1c Lactic Acid 1.8 Calcium Total Bilirubin AST ALT Alkaline Phosphatase Total Protein Albumin Globulin Albumin/Globulin Ratio Triglycerides Cholesterol LDL Cholesterol Direct HDL Cholesterol Venous Blood Potassium B-Hydroxybutyrate Assessment & Plan - Assessment and Plan (Free Text) Assessment: 53 year old female admitted with complaints of RLE pain and great toe necrosis Plan: -pulses non palpable B/L, audible by doppler -lactate 4.3 -f/u angio/ileofem runoff -f/u arterial duplex, ABIs -f/u MRI hallux, r/o osteo -ppx anticoagulation -continue with home DAPT -IV Abx -medical management per primary Will discuss with Dr. Daljit Loyola, PGY-1
[2018-09-21] MEDS ORDERED: Iodixanol 320 mg/ml 150 ml Bottle IV ONE (17:40)
--- NOTE | 2018-09-21 18:55 | CT ---
Date of service: 09/21/2018 PROCEDURE: CT Angiography Abdomen, Pelvis and Lower Extremity with Contrast HISTORY: previous stent COMPARISON: CT angiography of the abdomen, pelvis and bilateral lower extremities performed 02/28/2018; peripheral vascular intervention procedure performed 03/06/2018 TECHNIQUE: Technique: CT angiography of the abdomen, pelvis and bilateral lower extremities performed in the arterial phase of enhancement. Coronal and sagittal reformats, and well as rotating MIP images of the vessels generated at the workstation. Intravenous contrast dose: 150 mL Visipaque 320 Radiation dose: Total exam DLP = 3463.41 mGy-cm. This CT exam was performed using one or more of the following dose reduction techniques: Automated exposure control, adjustment of the mA and/or kV according to patient size, and/or use of iterative reconstruction technique. FINDINGS: CT ANGIOGRAPHY: Aortic atherosclerotic calcification and mural plaque present. ABDOMINAL AORTA:: No aneurysm, stenosis or occlusion. MAJOR AORTIC BRANCHES: Celiac [place]: Unremarkable. Superior mesenteric artery: Unremarkable. Inferior mesenteric artery: Unremarkable. Renal arteries: Unremarkable. PELVIC ARTERIES: Right Common Iliac: Unremarkable. Right External Iliac: Unremarkable. Right Internal Iliac: Unremarkable. Left Common Iliac: Unremarkable. Left External Iliac: Unremarkable. Left Internal Iliac: Unremarkable. RIGHT LOWER EXTREMITY ARTERIES: Right Common Femoral: Noncalcific plaque causing focal 50 percent stenosis Right Superficial Femoral: Short segment severe stenosis in proximal/midportion, just proximal to the indwelling distal stent. In stent flows difficult to assess. Focally stenotic in the distal portion just distal to the stent Right Profunda Femoris: Unremarkable. Right Popliteal:Unremarkable Right Anterior Tibial: Question focal ostial stenosis Right Tibioperoneal Trunk: Unremarkable. Right Posterior Tibial: Unremarkable. Right Peroneal: Focal ostial stenosis Right dorsalis pedis : Unremarkable. LEFT LOWER EXTREMITY ARTERIES: Left Common Femoral: Unremarkable. Left Superficial Femoral: Short segment area of stenosis distally Left Profunda Femoris: Unremarkable. Left Popliteal: Unremarkable. Left Anterior Tibial: Unremarkable. Left Tibioperoneal Trunk: Unremarkable. Left Posterior Tibial: Extremely small in caliber. Left Peronea: Unremarkable. Left Dorsalis pedis: Unremarkable. NON-ANGIOGRAPHIC ASPECT OF THE EXAM: LOWER THORAX: Unremarkable. LIVER: Stable nonspecific 7 mm fat density in the posterior right hepatic lobe (series 2, image 35). No gross lesion or ductal dilatation. GALLBLADDER AND BILE DUCTS: Unremarkable. PANCREAS: Unremarkable. No gross lesion or ductal dilatation. SPLEEN: Unremarkable. ADRENALS: Unremarkable. No mass. KIDNEYS AND URETERS: Unremarkable. No hydronephrosis. No solid mass. STOMACH AND BOWEL: Unremarkable. No obstruction. No gross mural thickening. APPENDIX: No findings to suggest acute appendicitis. PERITONEUM: New 2.2 x 1.0 cm cutaneous nodule in the pre pubic region (series 2, image 185). No free fluid. No free air. LYMPH NODES: Unremarkable. No enlarged lymph nodes. BLADDER: Unremarkable. REPRODUCTIVE: Unremarkable. BONES: Lucency through the right 1st toe distal phalanx, nonspecific. OTHER FINDINGS: None. IMPRESSION: Unremarkable CT angiogram of the abdomen pelvis. Right lower extremity: Focal 50 percent stenosis in the mid right common femoral artery. Short segment severe stenosis/near occlusion of the SFA just proximal to the indwelling stent with focal moderate to severe stenosis of the SFA just distal to the indwelling stent. InStent flow is poorly assessed. Focal ostial stenosis of the anterior tibial and peroneal arteries. Three-vessel runoff to the foot. Left lower extremity: Short segment area of stenosis in the left superficial femoral artery distally. Moderate to severe stenosis of the posterior tibial artery. Three-vessel runoff to the foot. New 2.2 x 1.0 cm cutaneous nodule in the mons pubis area. Clinical correlation is recommended.
[2018-09-21] MEDS: (Novolog Mix 70/30) Insulin Aspart/Insulin Aspar 100 units/ml SC SCH (19:00)
--- NOTE | 2018-09-21 20:04 | CP.PCM.HP ---
Past Patient History - Infectious Disease Hx of Infectious Diseases: None - Past Medical History & Family History Past Medical History?: Yes - Past Social History Smoking Status: Never Smoked - CARDIAC Hx Hypercholesterolemia: Yes Hx Hypertension: Yes - PULMONARY Hx Respiratory Disorders: No - NEUROLOGICAL HX Cerebrovascular Accident: Yes - HEENT Hx HEENT Problems: No - RENAL Hx Chronic Kidney Disease: No - ENDOCRINE/METABOLIC Hx Diabetes Mellitus Type 2: Yes - HEMATOLOGICAL/ONCOLOGICAL Hx Blood Disorders: No - INTEGUMENTARY Hx Dermatological Problems: No - MUSCULOSKELETAL/RHEUMATOLOGICAL Hx Falls: No - GASTROINTESTINAL Hx Gastrointestinal Disorders: No - GENITOURINARY/GYNECOLOGICAL Hx Genitourinary Disorders: No - PSYCHIATRIC Hx Substance Use: No - SURGICAL HISTORY Hx Coronary Stent: Yes (5 stents) - ANESTHESIA Hx Anesthesia: Yes Hx Anesthesia Reactions: No Meds Allergies/Adverse Reactions: Allergies Allergy/AdvReac Type Severity Reaction Status Date / Time No Known Allergies Allergy Verified 09/21/18 00:23 Results - Vital Signs Recent Vital Signs: Last Vital Signs Temp 97.6 F 09/21/18 08:19 Pulse 84 09/21/18 09:47 Resp 20 09/21/18 08:19 BP 149/81 09/21/18 09:47 Pulse Ox 97 09/21/18 08:19 - Labs Result Diagrams: 09/21/18 01:03 09/21/18 01:03 Labs: Laboratory Results - last 24 hr 09/21/18 09/21/18 09/21/18 00:55 01:03 01:03 WBC 9.0 RBC 4.01 Hgb 11.0 Hct 33.1 L MCV 82.5 MCH 27.5 MCHC 33.3 RDW 13.6 Plt Count 316 MPV 7.6 Neut % (Auto) 60.4 Lymph % (Auto) 29.4 [place] % (Auto) 8.7 Eos % (Auto) 1.0 Baso % (Auto) 0.5 Neut # (Auto) 5.4 Lymph # (Auto) 2.6 [place] # (Auto) 0.8 Eos # (Auto) 0.1 Baso # (Auto) 0.0 PT INR APTT pO2 21 L VBG pH 7.32 VBG pCO2 55 VBG HCO3 23.9 VBG Total CO2 30.0 H VBG O2 Sat (Calc) 35.4 L VBG Base Excess 1.1 VBG Potassium 3.6 Sodium 142.0 139 Chloride 106.0 102 Glucose 450 H* Lactate 4.3 H* Crit Value Called To Dimitri brannon cyanide pot hardener Crit Value Called By Pebbles tabor rt Crit Value Read Back Y Blood Gas Notified Time 114 Potassium 4.0 Carbon Dioxide 26 Anion Gap 15 BUN 20 H Creatinine 1.3 H Est GFR ( Amer) 52 Est GFR (Non-Af Amer) 43 POC Glucose (mg/dL) Random Glucose 466 H* D Hemoglobin A1c Lactic Acid Calcium 9.4 Total Bilirubin 0.4 AST 11 L D ALT < 6 L D Alkaline Phosphatase 165 H D Total Protein 7.8 Albumin 4.1 Globulin 3.7 Albumin/Globulin Ratio 1.1 Triglycerides Cholesterol LDL Cholesterol Direct HDL Cholesterol Venous Blood Potassium 3.6 B-Hydroxybutyrate 09/21/18 09/21/18 09/21/18 01:03 02:22 03:28 WBC RBC Hgb Hct MCV MCH MCHC RDW Plt Count MPV Neut % (Auto) Lymph % (Auto) [place] % (Auto) Eos % (Auto) Baso % (Auto) Neut # (Auto) Lymph # (Auto) [place] # (Auto) Eos # (Auto) Baso # (Auto) PT 12.6 H INR 1.2 APTT 37 H pO2 VBG pH VBG pCO2 VBG HCO3 VBG Total CO2 VBG O2 Sat (Calc) VBG Base Excess VBG Potassium Sodium Chloride Glucose Lactate Crit Value Called To Crit Value Called By Crit Value Read Back Blood Gas Notified Time Potassium Carbon Dioxide Anion Gap BUN Creatinine Est GFR ( Amer) Est GFR (Non-Af Amer) POC Glucose (mg/dL) 393 H Random Glucose Hemoglobin A1c Lactic Acid Calcium Total Bilirubin AST ALT Alkaline Phosphatase Total Protein Albumin Globulin Albumin/Globulin Ratio Triglycerides Cholesterol LDL Cholesterol Direct HDL Cholesterol Venous Blood Potassium B-Hydroxybutyrate 0.08 09/21/18 09/21/18 09/21/18 05:51 05:51 06:13 WBC RBC Hgb Hct MCV MCH MCHC RDW Plt Count MPV Neut % (Auto) Lymph % (Auto) [place] % (Auto) Eos % (Auto) Baso % (Auto) Neut # (Auto) Lymph # (Auto) [place] # (Auto) Eos # (Auto) Baso # (Auto) PT INR APTT pO2 VBG pH VBG pCO2 VBG HCO3 VBG Total CO2 VBG O2 Sat (Calc) VBG Base Excess VBG Potassium Sodium Chloride Glucose Lactate Crit Value Called To Crit Value Called By Crit Value Read Back Blood Gas Notified Time Potassium Carbon Dioxide Anion Gap BUN Creatinine Est GFR ( Amer) Est GFR (Non-Af Amer) POC Glucose (mg/dL) 341 H Random Glucose Hemoglobin A1c 14.2 H Lactic Acid Calcium Total Bilirubin AST ALT Alkaline Phosphatase Total Protein Albumin Globulin Albumin/Globulin Ratio Triglycerides 306 H D Cholesterol 184 LDL Cholesterol Direct 114 HDL Cholesterol 22 L Venous Blood Potassium B-Hydroxybutyrate 09/21/18 09/21/18 09/21/18 10:16 12:01 17:04 WBC RBC Hgb Hct MCV MCH MCHC RDW Plt Count MPV Neut % (Auto) Lymph % (Auto) [place] % (Auto) Eos % (Auto) Baso % (Auto) Neut # (Auto) Lymph # (Auto) [place] # (Auto) Eos # (Auto) Baso # (Auto) PT INR APTT pO2 VBG pH VBG pCO2 VBG HCO3 VBG Total CO2 VBG O2 Sat (Calc) VBG Base Excess VBG Potassium Sodium Chloride Glucose Lactate Crit Value Called To Crit Value Called By Crit Value Read Back Blood Gas Notified Time Potassium Carbon Dioxide Anion Gap BUN Creatinine Est GFR ( Amer) Est GFR (Non-Af Amer) POC Glucose (mg/dL) 167 H 349 H Random Glucose Hemoglobin A1c Lactic Acid 1.8 Calcium Total Bilirubin AST ALT Alkaline Phosphatase Total Protein Albumin Globulin Albumin/Globulin Ratio Triglycerides Cholesterol LDL Cholesterol Direct HDL Cholesterol Venous Blood Potassium B-Hydroxybutyrate
--- NOTE | 2018-09-21 21:28 | CON ---
DATE: 09/21/2018 This is at request of Dr. Ly. HISTORY OF PRESENT ILLNESS: This is a 53-year-old black female well known to me. The patient presents to my office yesterday with a very painful right great toe with what appeared to be impending gangrene. The patient is exhibiting significant pain of the right lower extremity. Suggested the patient be admitted for IV antibiotics and to rule out the possibility of acute vascular occlusion of the right forefoot. Consultations will be obtained with Dr. Bocanegra, Vascular and Dr. Kwong, Infectious Disease. She is seen here this morning alert, oriented x3. Right hallux is still cool to the touch. We will check MRI to determine whether or not there is an osteomyelitic component of this hallux. She needs IV antibiotics and vascular workup. Surinder Chaudhary DPM
[2018-09-22] MEDS: Piperacill/Tazo 3.375gm in Dex 3.375 GM/50 ML BAG IVPB SCH ×5 (00:41→23:45)
[2018-09-22] MEDS: Vancomycin 1 gm/NS 200 ml 1 GM/200 ML BAG IVPB SCH ×2 (05:52→17:23)
[2018-09-22 06:36] LABS: BASO % 0.5 % (0.0-2.0); EOS # 0.2 K/uL (0.0-0.7); EOS % 2.7 % (0.0-4.0); HEMOGLOBIN 10.3 g/dL (11.0-16.0); LYMPH # 1.4 K/uL (1.0-4.3); LYMPH % 18.7 % (20.0-40.0); MEAN CELL VOLUME 81.7 fL (81.0-99.0); MEAN CORPUSCULAR HGB CONC 33.1 g/dL (33.0-37.0); MEAN PLATELET VOLUME 8.1 fL (7.2-11.7); MONO # 0.6 K/uL (0.0-0.8); MONO % 8.6 % (0.0-10.0); NEUT # 5.2 K/uL (1.8-7.0); NEUT % 69.5 % (50.0-75.0); RBC 3.8 Mil/uL (3.80-5.20); RED CELL DISTRIBUTION WIDTH 13.7 % (11.5-14.5); WHITE BLOOD COUNT 7.4 K/uL (4.8-10.8)
[2018-09-22 06:51] LABS: ALBUMIN 3.4 g/dL (3.5-5.0); ALT/SGPT 12 U/L (9-52); AST/SGOT 11 U/L (14-36); BLOOD UREA NITROGEN 21 mg/dL (7-17); CALCIUM 8.7 mg/dl (8.6-10.4); GFR NON-AFRICAN AMERICAN 52
--- NOTE | 2018-09-22 07:26 | HP ---
CHIEF COMPLAINT: Right big toe pain, redness, swelling, and discharge. HISTORY OF PRESENT ILLNESS: This is a 53-year-old female; noncompliant with diet, medication and followup; type 2 diabetes, hypertension, hyperlipidemia, multiple cerebrovascular accident. She was seen by Dr. Chaudhary for right sided hallux valgus and change in coloration of right . The patient has had intense pain in the right foot, and according to her, pain is radiating into the toes and proximally to the foot, started as pain that followed by redness, swelling, and discharge from right big toe. Along with that, she was having fever, chills, and rigors. She was noncompliant with diet, medication, and insulin regimen; and by the time she came to the emergency room her blood sugar was over 400. She denies any nausea, vomiting, or diarrhea. She denies any history of hematuria, dysuria or pyuria. She denies any sneezing, itchy eyes, itchy nose. She denies tingling, numbness, paresthesias of the feet. She denies any history of headache, vertigo. No history of diplopia. No history of loss of consciousness. She denies any seizure-like activity. PAST MEDICAL HISTORY: Type 2 diabetes, hypertension, hyperlipidemia, peripheral neuropathy, two CVAs. SOCIAL HISTORY: She is nonsmoker and non-ETOH user. PAST SURGICAL HISTORY: She had multiple foot surgery, hysterectomy. CURRENT MEDICATIONS: At home, she is on insulin, Lopressor, hydrochlorothiazide, Reglan, Neurontin, Plavix, aspirin, dipyridamole, and atorvastatin. PHYSICAL EXAMINATION: GENERAL: A middle-aged female, in no acute distress. VITAL SIGNS: Blood pressure 149/81, pulse 84, respiratory rate 20, temperature 97.6. SKIN: No rashes. No bruising. No purpura. No petechiae. No ecchymosis. HEENT: Atraumatic, normocephalic. Negative pallor. Negative jaundice. Extraocular movements are intact. NECK: Supple. Flat neck pain. No JVD. No lymph node. No thyromegaly. No carotid bruits. CHEST: Chest wall bilaterally symmetrical. LUNGS: Clear. No rales. No rhonchi. CVS: No heave noted. S1 and S2 regular. ABDOMEN: Soft. Nontender. Bowel sounds are positive. EXTREMITIES: As above. EXPORT COORDINATOR: Awake, alert, and oriented x3. Decreased sensation in the feet. Right big toe has a dressing. It has a wound. ASSESSMENT: 1. Right diabetic foot. 2. Type 2 diabetes with neuropathy. 3. Type 2 diabetes, rule out peripheral arterial disease. 4. Uncontrolled diabetes. 5. Uncontrolled hypertension. PLAN: Monitor the patient. Maurice Ly MD
[2018-09-22] MEDS: (Novolin R) Insulin Human Regular 100 units/ml vial SC SCH ×4 (08:01→21:39)
[2018-09-22 08:30] LABS: SQUAMOUS EPITHIAL 2 /hpf (0-5); URINE BILIRUBIN NEGATIVE (NEGATIVE); URINE BLOOD NEGATIVE (NEGATIVE); URINE CLARITY Clear (Clear); URINE COLOR Yellow (YELLOW); URINE GLUCOSE (UA) 2+ mg/dL (Normal); URINE LEUKOCYTE ESTERASE NEG Leu/uL (Negative); URINE PROTEIN 1+ mg/dL (NEGATIVE); URINE UROBILINOGEN NORMAL mg/dL (0.2-1.0)
[2018-09-22] MEDS: (Novolog Mix 70/30) Insulin Aspart/Insulin Aspar 100 units/ml SC SCH ×2 (10:01→17:22)
[2018-09-22] MEDS: Enoxaparin 40 mg Syringe SC SCH (10:04)
[2018-09-22] MEDS: Metoprolol Succinate 50 mg XL Tab PO SCH (10:04)
[2018-09-22] MEDS: Aspirin-Dipyridamole 200-25 mg ER Cap PO SCH (10:05)
--- NOTE | 2018-09-22 10:41 | CP.PCM.PN ---
Subjective - Date & Time of Evaluation Date of Evaluation: 09/22/18 Time of Evaluation: 10:39 - Subjective Subjective: Surgery: Dr. Bocanegra Pt seen and examined. No acute overnight events. Reviewed CTA with Daljit Lares, plan for angio on . f/u ABIs. d/w Dr. Daljit Manzo Objective - Vital Signs/Intake and Output Vital Signs (last 24 hours): Temp Pulse Resp BP Pulse Ox 98 F 89 20 170/96 H 99 09/22/18 07:56 09/22/18 09:59 09/22/18 07:56 09/22/18 09:59 09/22/18 07:56 - Medications Medications: Current Medications Clopidogrel Bisulfate (Plavix) 75 mg PO DAILY [facility] Last Admin: 09/22/18 10:04 Dose: 75 mg Dipyridamole/Aspirin (Aggrenox 25-200 Mg) 1 ea PO DAILY [facility] Last Admin: 09/22/18 10:05 Dose: 1 ea Enoxaparin Sodium (Lovenox) 40 mg SC DAILY [facility] Last Admin: 09/22/18 10:04 Dose: 40 mg Gabapentin (Neurontin) 300 mg PO BID [facility] Last Admin: 09/22/18 10:04 Dose: 300 mg Hydrochlorothiazide (Microzide) 12.5 mg PO DAILY [facility] Last Admin: 09/22/18 10:04 Dose: 12.5 mg Piperacillin Sod/Tazobactam Sod (Zosyn 3.375 Gm Iv Premix) 3.375 gm in 50 mls @ 100 mls/hr IVPB Q6H [facility]; Protocol Last Admin: 09/22/18 05:52 Dose: 100 mls/hr Vancomycin/Sodium Chloride (Vancomycin 1 Gm/Ns 200 Ml) 1 gm in 200 mls @ 133 mls/hr IVPB Q12H [facility]; Protocol Stop: 09/26/18 05:46 Last Admin: 09/22/18 05:52 Dose: 133 mls/hr Insulin Aspart (Novolog Mix 70/30 (70/30 Units/Ml)) 20 units SC BID [facility] Last Admin: 09/22/18 10:01 Dose: 20 units Insulin Human Regular (Novolin R) 0 unit SC ACHS [facility]; Protocol Last Admin: 09/22/18 08:01 Dose: 4 units Metoclopramide HCl (Reglan) 5 mg PO BID [facility] Last Admin: 09/22/18 10:04 Dose: 5 mg Metoprolol Succinate (Toprol Xl) 50 mg PO DAILY [facility] Last Admin: 09/22/18 10:04 Dose: 50 mg Rosuvastatin Calcium (Crestor) 40 mg PO HS [facility] Last Admin: 09/21/18 21:41 Dose: 40 mg - Labs Labs: 09/22/18 06:18 09/22/18 06:18 PT 12.6 SECONDS (9.7-12.2) H 09/21/18 01:03 INR 1.2 09/21/18 01:03 APTT 37 SECONDS (21-34) H 09/21/18 01:03 - Constitutional Appears: Well, No Acute Distress - Head Exam Head Exam: ATRAUMATIC, NORMOCEPHALIC - Eye Exam Eye Exam: Normal appearance - ENT Exam ENT Exam: Mucous Membranes Moist - Respiratory Exam Respiratory Exam: NORMAL BREATHING PATTERN - Cardiovascular Exam Cardiovascular Exam: RRR - Neurological Exam Neurological Exam: Alert, Awake - Skin Skin Exam: Dry, Warm
[2018-09-22] MEDS ORDERED: (Novolin R) Insulin Human Regular 100 units/ml vial SC SCH (11:39)
--- NOTE | 2018-09-22 14:26 | CARD ---
APPROVED REPORT Date of service: 09/21/2018 EKG Measurement Heart [id number] <Conclusion> Normal sinus rhythm Normal ECG
--- NOTE | 2018-09-22 14:40 | CP.PCM.PN ---
Subjective - Date & Time of Evaluation Date of Evaluation: 09/22/18 Time of Evaluation: 14:37 - Subjective Subjective: Podiatry progress note for Dr. Montoya 53F seen at bedside for right hallux interdigital and distal tip ulceration. Patient is AAO x 3 and NAD, resting comfortably in bed at time of visit. Denies any acute overnight events or new pedal complaints at this time. Denies any pain to her foot. Denies any recent N/V/F/C/CP/SOB/D Objective - Vital Signs/Intake and Output Vital Signs (last 24 hours): Temp Pulse Resp BP Pulse Ox 98 F 89 20 170/96 H 99 09/22/18 07:56 09/22/18 09:59 09/22/18 07:56 09/22/18 09:59 09/22/18 07:56 - Medications Medications: Current Medications Clopidogrel Bisulfate (Plavix) 75 mg PO DAILY [facility] Last Admin: 09/22/18 10:04 Dose: 75 mg Dipyridamole/Aspirin (Aggrenox 25-200 Mg) 1 ea PO DAILY [facility] Last Admin: 09/22/18 10:05 Dose: 1 ea Enoxaparin Sodium (Lovenox) 40 mg SC DAILY [facility] Last Admin: 09/22/18 10:04 Dose: 40 mg Gabapentin (Neurontin) 300 mg PO BID [facility] Last Admin: 09/22/18 10:04 Dose: 300 mg Hydrochlorothiazide (Microzide) 12.5 mg PO DAILY [facility] Last Admin: 09/22/18 10:04 Dose: 12.5 mg Piperacillin Sod/Tazobactam Sod (Zosyn 3.375 Gm Iv Premix) 3.375 gm in 50 mls @ 100 mls/hr IVPB Q6H [facility]; Protocol Last Admin: 09/22/18 11:59 Dose: 100 mls/hr Vancomycin/Sodium Chloride (Vancomycin 1 Gm/Ns 200 Ml) 1 gm in 200 mls @ 133 mls/hr IVPB Q12H [facility]; Protocol Stop: 09/26/18 05:46 Last Admin: 09/22/18 05:52 Dose: 133 mls/hr Insulin Aspart (Novolog Mix 70/30 (70/30 Units/Ml)) 20 units SC BID [facility] Last Admin: 09/22/18 10:01 Dose: 20 units Insulin Human Regular (Novolin R) 0 unit SC ACHS [facility]; Protocol Last Admin: 09/22/18 11:59 Dose: 12 units Metoclopramide HCl (Reglan) 5 mg PO BID [facility] Last Admin: 09/22/18 10:04 Dose: 5 mg Metoprolol Succinate (Toprol Xl) 50 mg PO DAILY [facility] Last Admin: 09/22/18 10:04 Dose: 50 mg Rosuvastatin Calcium (Crestor) 40 mg PO HS [facility] Last Admin: 09/21/18 21:41 Dose: 40 mg - Labs Labs: 09/22/18 06:18 09/22/18 06:18 PT 12.6 SECONDS (9.7-12.2) H 09/21/18 01:03 INR 1.2 09/21/18 01:03 APTT 37 SECONDS (21-34) H 09/21/18 01:03 - Constitutional Appears: Well, Non-toxic, No Acute Distress - Extremities Exam Additional comments: VASC: DP and PT unpalpable, temperature gradient warm to cool, no digital hair noted, nonpitting edema noted to the right hallux ORTHO: severe pain with palpation to the entire hallux, MM is 4/5 in all four compartments: dorsiflexion, plantarflexion, inversion, and eversion NEURO: gross sensation intact, protective sensation diminished DERM: blue-melissa discoloration noted to the 2nd digit and hallux noted to be resolved at this time, tiny circular lesion noted to the distal plantar aspect of the hallux measuring approximately .5 cm x .5cm in diameter. does not appear to probe to bone. No purulence noted. no streaking noted, no undermining or tunneling noted, no fluctuance noted - Neurological Exam Neurological Exam: Alert, Awake, Oriented x3 - Psychiatric Exam Psychiatric exam: Normal Affect, Normal Mood Assessment and Plan - Assessment and Plan (Free Text) Assessment: 53F seen at bedside for right hallux interdigital and distal tip ulceration Plan: Patient seen and evaluated Plan discussed with Dr. Montoya Absent leukocytosis Continue IV abx per ID HbA1c 14.2 X-rays- tranverse lucency 1st distal phalanx, posttraumatic, surgical or post infectious LE US: Read pending LE art duplex scan: Read pending Abdominal angiography: RLE - 50% stenosis mid R TECHNICAL TRAINING COORDINATOR. Short segment severe stenosis/near occlusion of the SFA, focal moderate/severe stenosis of the SFA. Focal ostial stenosis of the anterior tibial and peroneal arteries. Three- vessel runoff to the foot. LLE- Short segment area of stenosis in the L SFA distally. Moderate to severe stenosis of the posterior tibial artery. Three- vessel runoff to the foot. R ft WC- pending MRI ordered- final read pending ESR- 57 CRP 13.4 Site dressed with hydrogen peroxide W2D DSD No plan for surgical intervention at this time Patient for revasc with Dr. Bocanegra on Tuesday 09/25 Podiatry will continue to follow while patient in house
[2018-09-23] MEDS: Vancomycin 1 gm/NS 200 ml 1 GM/200 ML BAG IVPB SCH ×2 (05:46→18:25)
[2018-09-23] MEDS: Piperacill/Tazo 3.375gm in Dex 3.375 GM/50 ML BAG IVPB SCH ×4 (05:46→23:29)
[2018-09-23 07:35] LABS: BASO % 0.5 % (0.0-2.0); EOS # 0.2 K/uL (0.0-0.7); HEMOGLOBIN 9.7 g/dL (11.0-16.0); LYMPH # 1.5 K/uL (1.0-4.3); LYMPH % 25.2 % (20.0-40.0); MEAN CELL VOLUME 80.2 fL (81.0-99.0); MEAN CORPUSCULAR HEMOGLOBIN 26.8 pg (27.0-31.0); MEAN CORPUSCULAR HGB CONC 33.5 g/dL (33.0-37.0); MEAN PLATELET VOLUME 8.1 fL (7.2-11.7); MONO # 0.6 K/uL (0.0-0.8); MONO % 9.7 % (0.0-10.0); NEUT # 3.7 K/uL (1.8-7.0); NEUT % 61.6 % (50.0-75.0); RBC 3.61 Mil/uL (3.80-5.20); RED CELL DISTRIBUTION WIDTH 13.5 % (11.5-14.5)
[2018-09-23] MEDS: (Novolin R) Insulin Human Regular 100 units/ml vial SC SCH ×4 (07:46→21:19)
[2018-09-23 08:02] LABS: ALB/GLOB RATIO 0.9 (1.0-2.1); ALT/SGPT 18 U/L (9-52); AST/SGOT 10 U/L (14-36); BLOOD UREA NITROGEN 17 mg/dL (7-17); CALCIUM 8.6 mg/dl (8.6-10.4); GFR NON-AFRICAN AMERICAN > 60
--- NOTE | 2018-09-23 09:03 | CP.PCM.PN ---
Subjective - Date & Time of Evaluation Date of Evaluation: 09/23/18 Time of Evaluation: 09:01 - Subjective Subjective: Podiatry progress note for Dr. Montoya 53 y/o female patient seen and evaluated at bedside for right hallux interdigital and distal tip ulceration. Patient is AAO x 3 and NAD, resting comfortably in bed at time of visit. Patient denies any acute overnight events or new pedal complaints at this time. Denies any pain to her foot. Denies any recent N/V/F/C/CP/SOB/D Objective - Vital Signs/Intake and Output Vital Signs (last 24 hours): Temp Pulse Resp BP Pulse Ox 98.0 F 80 20 132/77 99 09/23/18 07:39 09/23/18 07:39 09/23/18 07:39 09/23/18 07:39 09/23/18 07:39 - Medications Medications: Current Medications Clopidogrel Bisulfate (Plavix) 75 mg PO DAILY [facility] Last Admin: 09/22/18 10:04 Dose: 75 mg Dipyridamole/Aspirin (Aggrenox 25-200 Mg) 1 ea PO DAILY [facility] Last Admin: 09/22/18 10:05 Dose: 1 ea Enoxaparin Sodium (Lovenox) 40 mg SC DAILY [facility] Last Admin: 09/22/18 10:04 Dose: 40 mg Gabapentin (Neurontin) 300 mg PO BID [facility] Last Admin: 09/22/18 17:22 Dose: 300 mg Hydrochlorothiazide (Microzide) 12.5 mg PO DAILY [facility] Last Admin: 09/22/18 10:04 Dose: 12.5 mg Piperacillin Sod/Tazobactam Sod (Zosyn 3.375 Gm Iv Premix) 3.375 gm in 50 mls @ 100 mls/hr IVPB Q6H [facility]; Protocol Last Admin: 09/23/18 05:46 Dose: Not Given Vancomycin/Sodium Chloride (Vancomycin 1 Gm/Ns 200 Ml) 1 gm in 200 mls @ 133 mls/hr IVPB Q12H [facility]; Protocol Stop: 09/26/18 05:46 Last Admin: 09/23/18 05:46 Dose: Not Given Insulin Aspart (Novolog Mix 70/30 (70/30 Units/Ml)) 20 units SC BID [facility] Last Admin: 09/22/18 17:22 Dose: 20 units Insulin Human Regular (Novolin R) 0 unit SC ACHS [facility]; Protocol Last Admin: 09/23/18 07:46 Dose: 6 units Metoclopramide HCl (Reglan) 5 mg PO BID [facility] Last Admin: 09/22/18 17:22 Dose: 5 mg Metoprolol Succinate (Toprol Xl) 50 mg PO DAILY [facility] Last Admin: 09/22/18 10:04 Dose: 50 mg Rosuvastatin Calcium (Crestor) 40 mg PO HS [facility] Last Admin: 09/22/18 21:40 Dose: 40 mg - Labs Labs: 09/23/18 07:28 09/23/18 07:28 PT 12.6 SECONDS (9.7-12.2) H 09/21/18 01:03 INR 1.2 09/21/18 01:03 APTT 37 SECONDS (21-34) H 09/21/18 01:03 - Constitutional Appears: Well, No Acute Distress - Extremities Exam Additional comments: VASC: DP and PT pulses faintly palpable, temperature gradient warm to cool, no digital hair noted, minimal non-pitting edema noted to the right hallux NEURO: gross sensation intact, protective sensation diminished DERM: blue-melissa discoloration noted to the 2nd digit and hallux noted to be resolved at this time, tiny circular lesion noted to the distal plantar aspect of the hallux measuring approximately .3 cm x .3 cm in diameter. does not appear to probe to bone. minimal purulence expressed, no streaking noted, no undermining or tunneling noted, no fluctuance noted ORTHO: moderate-severe pain with palpation to the entire hallux, MM is 4/5 in all four compartments: dorsiflexion, plantarflexion, inversion, and eversion - Neurological Exam Neurological Exam: Alert, Awake, Oriented x3 - Psychiatric Exam Psychiatric exam: Normal Affect, Normal Mood Assessment and Plan - Assessment and Plan (Free Text) Assessment: 53 y/o female seen at bedside for right hallux interdigital and distal tip ulceration Plan: Patient seen and evaluated Plan discussed with Dr. Montoya Patient afebrile and Absent leukocytosis at this time Continue IV abx per ID HbA1c 14.2 X-rays- tranverse lucency 1st distal phalanx, posttraumatic, surgical or post infectious LE US: Read pending LE art duplex scan: Read pending Abdominal angiography: RLE - 50% stenosis mid R DIRECTOR OF INCOME TAX. Short segment severe stenosis/near occlusion of the SFA, focal moderate/severe stenosis of the SFA. Focal ostial stenosis of the anterior tibial and peroneal arteries. Three- vessel runoff to the foot. LLE- Short segment area of stenosis in the L SFA distally. Moderate to severe stenosis of the posterior tibial artery. Three- vessel runoff to the foot. R ft WC- Preliminry, Gram Positive Cocci Blood Cultures Pending at this time MRI ordered- final read pending ESR- Pending from 09/23/18 CRP 13.4 from 09/22/18 Site dressed with hydrogen peroxide W2D DSD No plan for surgical intervention at this time Patient for revasc with Dr. Bocanegra on Tuesday 09/25 Podiatry will continue to follow while patient in house
[2018-09-23] MEDS: (Novolog Mix 70/30) Insulin Aspart/Insulin Aspar 100 units/ml SC SCH ×2 (10:18→17:37)
[2018-09-23] MEDS: Metoprolol Succinate 50 mg XL Tab PO SCH (10:19)
[2018-09-23] MEDS: Aspirin-Dipyridamole 200-25 mg ER Cap PO SCH (10:20)
[2018-09-23] MEDS: Enoxaparin 40 mg Syringe SC SCH (10:21)
[2018-09-23] MEDS ORDERED: Oxycodone/Acetaminophen 5/325 mg Tab PO PRN (16:02)
[2018-09-23] MEDS: Atropine-Diphenoxylate 0.025-2.5 mg Tab PO PRN ×2 (16:27→21:48)
--- NOTE | 2018-09-23 17:01 | MRI ---
Date of service: 09/21/2018 PROCEDURE: MRI OF THE RIGHT TOES WITHOUT CONTRAST HISTORY: r/o right hallux OM COMPARISON: Right great toe radiographs 09/21/2018. TECHNIQUE: An MR examination of the right great toe and remaining digits of the right foot has been performed delete using multiplanar multisequential technique without intravenous gadolinium as requested. FINDINGS: Marginal edema seen at the tuft of the great toe right foot in a pattern suspicious for possible osteomyelitis though this could be posttraumatic in origin. Clinically correlate further. No fractures identified or additional marrow edema throughout the remaining digits and metatarsal bones of the right foot. Moderate dorsal soft tissue edema seen throughout the right foot with a mild amount at the great toe level as well as 2nd and 3rd as well as 4th digits. Hammertoe deformities are diffusely identified sparing the great toe somewhat. There is a moderate effusion involving the 1st metatarsophalangeal joint. IMPRESSION: Likely early osteomyelitis tuft of the great toe. Diffuse hammertoe throughout the forefoot right foot. Moderate dorsal soft tissue edema extending into the 1st through 4th digits.
--- NOTE | 2018-09-23 21:30 | CP.PCM.PN ---
Subjective - Subjective Subjective: dictated Objective - Vital Signs/Intake and Output Vital Signs (last 24 hours): Temp Pulse Resp BP Pulse Ox 98.0 F 81 20 133/74 100 09/23/18 15:00 09/23/18 15:00 09/23/18 15:00 09/23/18 15:00 09/23/18 15:00 Intake and Output: 09/23/18 09/24/18 18:59 06:59 Intake Total 400 Balance 400 - Medications Medications: Current Medications Clopidogrel Bisulfate (Plavix) 75 mg PO DAILY [facility] Last Admin: 09/23/18 10:19 Dose: 75 mg Diphenoxylate HCl/Atropine (Lomotil 0.025-2.5 Mg Tablet) 1 tab PO Q4 PRN PRN Reason: Diarrhea Last Admin: 09/23/18 16:27 Dose: 1 tab Dipyridamole/Aspirin (Aggrenox 25-200 Mg) 1 ea PO DAILY [facility] Last Admin: 09/23/18 10:20 Dose: 1 ea Enoxaparin Sodium (Lovenox) 40 mg SC DAILY [facility] Last Admin: 09/23/18 10:21 Dose: Not Given Gabapentin (Neurontin) 300 mg PO BID [facility] Last Admin: 09/23/18 10:19 Dose: 300 mg Hydrochlorothiazide (Microzide) 12.5 mg PO DAILY [facility] Last Admin: 09/23/18 10:19 Dose: 12.5 mg Piperacillin Sod/Tazobactam Sod (Zosyn 3.375 Gm Iv Premix) 3.375 gm in 50 mls @ 100 mls/hr IVPB Q6H [facility]; Protocol Last Admin: 09/23/18 18:24 Dose: 100 mls/hr Vancomycin/Sodium Chloride (Vancomycin 1 Gm/Ns 200 Ml) 1 gm in 200 mls @ 133 mls/hr IVPB Q12H [facility]; Protocol Stop: 09/26/18 05:46 Last Admin: 09/23/18 18:25 Dose: 133 mls/hr Insulin Aspart (Novolog Mix 70/30 (70/30 Units/Ml)) 24 units SC BID [facility] Last Admin: 09/23/18 17:37 Dose: 24 units Insulin Human Regular (Novolin R) 0 unit SC ACHS [facility]; Protocol Last Admin: 09/23/18 21:19 Dose: Not Given Metoclopramide HCl (Reglan) 5 mg PO BID [facility] Last Admin: 09/23/18 10:19 Dose: 5 mg Metoprolol Succinate (Toprol Xl) 50 mg PO DAILY [facility] Last Admin: 09/23/18 10:19 Dose: 50 mg Oxycodone/Acetaminophen (Percocet 5/325 Mg Tab) 1 tab PO Q4H PRN PRN Reason: Pain, moderate (4-7) Stop: 09/26/18 16:03 Last Admin: 09/23/18 16:27 Dose: 1 tab Rosuvastatin Calcium (Crestor) 40 mg PO [facility] Last Admin: 09/22/18 21:40 Dose: 40 mg - Labs Labs: 09/23/18 07:28 09/23/18 07:28 PT 12.6 SECONDS (9.7-12.2) H 09/21/18 01:03 INR 1.2 09/21/18 01:03 APTT 37 SECONDS (21-34) H 09/21/18 01:03 Assessment and Plan (1) Gangrene of toe of right foot Status: Acute (2) Coronary artery disease Status: Chronic (3) Diabetes Status: Chronic (4) Hypertension Status: Chronic
--- NOTE | 2018-09-23 21:30 | CP.PCM.PN ---
Subjective - Date & Time of Evaluation Date of Evaluation: 09/22/18 - Subjective Subjective: weak, sugras are high, pain in r foot Objective - Vital Signs/Intake and Output Vital Signs (last 24 hours): Temp Pulse Resp BP Pulse Ox 98.0 F 81 20 133/74 100 09/23/18 15:00 09/23/18 15:00 09/23/18 15:00 09/23/18 15:00 09/23/18 15:00 Intake and Output: 09/23/18 09/24/18 18:59 06:59 Intake Total 400 Balance 400 - Medications Medications: Current Medications Clopidogrel Bisulfate (Plavix) 75 mg PO DAILY [facility] Last Admin: 09/23/18 10:19 Dose: 75 mg Diphenoxylate HCl/Atropine (Lomotil 0.025-2.5 Mg Tablet) 1 tab PO Q4 PRN PRN Reason: Diarrhea Last Admin: 09/23/18 16:27 Dose: 1 tab Dipyridamole/Aspirin (Aggrenox 25-200 Mg) 1 ea PO DAILY [facility] Last Admin: 09/23/18 10:20 Dose: 1 ea Enoxaparin Sodium (Lovenox) 40 mg SC DAILY [facility] Last Admin: 09/23/18 10:21 Dose: Not Given Gabapentin (Neurontin) 300 mg PO BID [facility] Last Admin: 09/23/18 10:19 Dose: 300 mg Hydrochlorothiazide (Microzide) 12.5 mg PO DAILY [facility] Last Admin: 09/23/18 10:19 Dose: 12.5 mg Piperacillin Sod/Tazobactam Sod (Zosyn 3.375 Gm Iv Premix) 3.375 gm in 50 mls @ 100 mls/hr IVPB Q6H [facility]; Protocol Last Admin: 09/23/18 18:24 Dose: 100 mls/hr Vancomycin/Sodium Chloride (Vancomycin 1 Gm/Ns 200 Ml) 1 gm in 200 mls @ 133 mls/hr IVPB Q12H [facility]; Protocol Stop: 09/26/18 05:46 Last Admin: 09/23/18 18:25 Dose: 133 mls/hr Insulin Aspart (Novolog Mix 70/30 (70/30 Units/Ml)) 24 units SC BID [facility] Last Admin: 09/23/18 17:37 Dose: 24 units Insulin Human Regular (Novolin R) 0 unit SC ACHS [facility]; Protocol Last Admin: 09/23/18 21:19 Dose: Not Given Metoclopramide HCl (Reglan) 5 mg PO BID [facility] Last Admin: 09/23/18 10:19 Dose: 5 mg Metoprolol Succinate (Toprol Xl) 50 mg PO DAILY [facility] Last Admin: 09/23/18 10:19 Dose: 50 mg Oxycodone/Acetaminophen (Percocet 5/325 Mg Tab) 1 tab PO Q4H PRN PRN Reason: Pain, moderate (4-7) Stop: 09/26/18 16:03 Last Admin: 09/23/18 16:27 Dose: 1 tab Rosuvastatin Calcium (Crestor) 40 mg PO HS [facility] Last Admin: 09/22/18 21:40 Dose: 40 mg - Labs Labs: 09/23/18 07:28 09/23/18 07:28 PT 12.6 SECONDS (9.7-12.2) H 09/21/18 01:03 INR 1.2 09/21/18 01:03 APTT 37 SECONDS (21-34) H 09/21/18 01:03 - Constitutional Appears: Non-toxic, No Acute Distress - Head Exam Head Exam: ATRAUMATIC, NORMAL INSPECTION, NORMOCEPHALIC - Eye Exam Eye Exam: EOMI, Normal appearance, PERRL Pupil Exam: NORMAL ACCOMODATION - ENT Exam ENT Exam: Mucous Membranes Moist, Normal Exam, Normal Oropharynx - Neck Exam Neck Exam: Normal Inspection - Respiratory Exam Respiratory Exam: Clear to Ausculation Bilateral, NORMAL BREATHING PATTERN - Cardiovascular Exam Cardiovascular Exam: REGULAR RHYTHM, +S1, +S2 - GI/Abdominal Exam GI & Abdominal Exam: Soft, Normal Bowel Sounds - Rectal Exam Rectal Exam: NORMAL INSPECTION - Extremities Exam Extremities Exam: absent: Normal Capillary Refill, Normal Inspection - Neurological Exam Neurological Exam: Alert, Awake, CN II-XII Intact, Motor Sensory Deficit, Normal Gait, Oriented x3 Neuro motor strength exam: Left Upper Extremity: 5, Right Upper Extremity: 5, Left Lower Extremity: 5, Right Lower Extremity: 5 - Psychiatric Exam Psychiatric exam: Normal Mood - Skin Skin Exam: Intact Assessment and Plan (1) Gangrene of toe of right foot Status: Acute (2) Coronary artery disease Status: Chronic (3) Diabetes Status: Chronic (4) Hypertension Status: Chronic
--- NOTE | 2018-09-24 01:37 | PN ---
DATE: 09/23/2018 SUBJECTIVE: The patient, Zoe, is for angiogram tomorrow. She is afebrile. No shortness of breath. No chest pain. Blood sugar has started coming down. PHYSICAL EXAMINATION: VITAL SIGNS: Blood pressure 133/74, pulse 81, respiratory rate 20, and temperature 98. LUNGS: Clear. CARDIOVASCULAR: S1 and S2 are regular. ABDOMEN: Soft. EXTREMITIES: The right big toe has wound with poor peripheral pulses. ASSESSMENT: 1. Peripheral arterial disease with peripheral neuropathy. 2. Gangrenous ulcer, ischemic ulcer of right big toe. 3. Type 2 diabetes, uncontrolled. 4. Hypertension. PLAN: Antibiotics. OR in a.m. Maurice Ly MD
[2018-09-24] MEDS: Atropine-Diphenoxylate 0.025-2.5 mg Tab PO PRN (04:48)
[2018-09-24] MEDS: Piperacill/Tazo 3.375gm in Dex 3.375 GM/50 ML BAG IVPB SCH ×3 (04:48→17:19)
[2018-09-24] MEDS: Vancomycin 1 gm/NS 200 ml 1 GM/200 ML BAG IVPB SCH ×2 (05:25→17:19)
[2018-09-24] MEDS: (Novolin R) Insulin Human Regular 100 units/ml vial SC SCH ×4 (08:35→21:34)
[2018-09-24] MEDS: (Novolog Mix 70/30) Insulin Aspart/Insulin Aspar 100 units/ml SC SCH ×2 (09:36→17:19)
[2018-09-24] MEDS: Metoprolol Succinate 50 mg XL Tab PO SCH (09:36)
[2018-09-24] MEDS: Aspirin-Dipyridamole 200-25 mg ER Cap PO SCH (09:36)
[2018-09-24] MEDS: Enoxaparin 40 mg Syringe SC SCH (09:37)
[2018-09-24 12:15] LABS: HEMOGLOBIN 10.7 g/dL (11.0-16.0); MEAN CELL VOLUME 81.1 fL (81.0-99.0); MEAN CORPUSCULAR HEMOGLOBIN 27.3 pg (27.0-31.0); MEAN CORPUSCULAR HGB CONC 33.7 g/dL (33.0-37.0); RBC 3.91 Mil/uL (3.80-5.20); RED CELL DISTRIBUTION WIDTH 13.6 % (11.5-14.5); WHITE BLOOD COUNT 5.9 K/uL (4.8-10.8)
[2018-09-24 12:26] LABS: BLOOD UREA NITROGEN 15 mg/dL (7-17); CALCIUM 8.7 mg/dl (8.6-10.4); GFR NON-AFRICAN AMERICAN 58
--- NOTE | 2018-09-24 17:23 | CP.PCM.PN ---
Subjective - Date & Time of Evaluation Date of Evaluation: 09/24/18 Time of Evaluation: 17:19 - Subjective Subjective: Vascular Surgery Progress Note for Dr. Bocanegra This 53F was seen and examined this AM at bedside. No acute events overnight. Denies fevers, chills, chest pain or SOB. Objective - Vital Signs/Intake and Output Vital Signs (last 24 hours): Temp Pulse Resp BP Pulse Ox 97.8 F 83 20 147/86 98 09/24/18 14:00 09/24/18 14:00 09/24/18 14:00 09/24/18 14:00 09/24/18 14:00 Intake and Output: 09/24/18 09/24/18 06:59 18:59 Intake Total 850 Balance 850 - Medications Medications: Current Medications Clopidogrel Bisulfate (Plavix) 75 mg PO DAILY [facility] Last Admin: 09/24/18 09:36 Dose: 75 mg Diphenoxylate HCl/Atropine (Lomotil 0.025-2.5 Mg Tablet) 1 tab PO Q4 PRN PRN Reason: Diarrhea Last Admin: 09/24/18 04:48 Dose: 1 tab Dipyridamole/Aspirin (Aggrenox 25-200 Mg) 1 ea PO DAILY [facility] Last Admin: 09/24/18 09:36 Dose: 1 ea Enoxaparin Sodium (Lovenox) 40 mg SC DAILY [facility] Last Admin: 09/24/18 09:37 Dose: Not Given Gabapentin (Neurontin) 300 mg PO BID [facility] Last Admin: 09/24/18 09:36 Dose: 300 mg Hydrochlorothiazide (Microzide) 12.5 mg PO DAILY [facility] Last Admin: 09/24/18 09:36 Dose: 12.5 mg Piperacillin Sod/Tazobactam Sod (Zosyn 3.375 Gm Iv Premix) 3.375 gm in 50 mls @ 100 mls/hr IVPB Q6H [facility]; Protocol Last Admin: 09/24/18 12:56 Dose: 100 mls/hr Vancomycin/Sodium Chloride (Vancomycin 1 Gm/Ns 200 Ml) 1 gm in 200 mls @ 133 mls/hr IVPB Q12H [facility]; Protocol Stop: 09/26/18 05:46 Last Admin: 09/24/18 05:25 Dose: 133 mls/hr Sodium Chloride (Sodium Chloride 0.9%) 1,000 mls @ 100 mls/hr IV .Q10H [facility] Insulin Aspart (Novolog Mix 70/30 (70/30 Units/Ml)) 24 units SC BID [facility] Last Admin: 09/24/18 09:36 Dose: 24 units Insulin Human Regular (Novolin R) 0 unit SC ACHS [facility]; Protocol Last Admin: 09/24/18 12:56 Dose: 4 units Metoclopramide HCl (Reglan) 5 mg PO BID [facility] Last Admin: 09/24/18 09:36 Dose: 5 mg Metoprolol Succinate (Toprol Xl) 50 mg PO DAILY [facility] Last Admin: 09/24/18 09:36 Dose: 50 mg Oxycodone/Acetaminophen (Percocet 5/325 Mg Tab) 1 tab PO Q4H PRN PRN Reason: Pain, moderate (4-7) Stop: 09/26/18 16:03 Last Admin: 09/23/18 16:27 Dose: 1 tab Rosuvastatin Calcium (Crestor) 40 mg PO [facility] Last Admin: 09/23/18 21:48 Dose: 40 mg - Labs Labs: 09/24/18 11:58 09/24/18 11:58 PT 12.6 SECONDS (9.7-12.2) H 09/21/18 01:03 INR 1.2 09/21/18 01:03 APTT 37 SECONDS (21-34) H 09/21/18 01:03 - Constitutional Appears: Well, No Acute Distress - Head Exam Head Exam: ATRAUMATIC, NORMOCEPHALIC - Eye Exam Eye Exam: Normal appearance - ENT Exam ENT Exam: Mucous Membranes Moist - Respiratory Exam Respiratory Exam: NORMAL BREATHING PATTERN - Cardiovascular Exam Cardiovascular Exam: RRR - Neurological Exam Neurological Exam: Alert, Awake - Skin Skin Exam: Dry, Warm Assessment and Plan - Assessment and Plan (Free Text) Assessment: This is a 53F with a Right gangreous toe Angiogram tomorrow D/W Dr. Daljit Baker PGY3
--- NOTE | 2018-09-24 23:05 | CP.PCM.PN ---
Subjective - Date & Time of Evaluation Date of Evaluation: 09/24/18 Time of Evaluation: 11:00 - Subjective Subjective: Podiatry progress note for Dr. Montoya 53 y/o female patient seen and evaluated at bedside for right hallux interdigital and distal tip ulceration. Patient is AAO x 3 and NAD, resting comfortably in bed at time of visit. Patient denies any acute overnight events or new pedal complaints at this time. Patient reports pain to the right foot. Denies any recent N/V/F/C/CP/SOB/D Objective - Vital Signs/Intake and Output Vital Signs (last 24 hours): Temp Pulse Resp BP Pulse Ox 97.8 F 83 20 147/86 98 09/24/18 14:00 09/24/18 14:00 09/24/18 14:00 09/24/18 14:00 09/24/18 14:00 Intake and Output: 09/24/18 09/25/18 18:59 06:59 Intake Total 850 800 Balance 850 800 - Medications Medications: Current Medications Clopidogrel Bisulfate (Plavix) 75 mg PO DAILY [facility] Last Admin: 09/24/18 09:36 Dose: 75 mg Diphenoxylate HCl/Atropine (Lomotil 0.025-2.5 Mg Tablet) 1 tab PO Q4 PRN PRN Reason: Diarrhea Last Admin: 09/24/18 04:48 Dose: 1 tab Dipyridamole/Aspirin (Aggrenox 25-200 Mg) 1 ea PO DAILY [facility] Last Admin: 09/24/18 09:36 Dose: 1 ea Enoxaparin Sodium (Lovenox) 40 mg SC DAILY [facility] Last Admin: 09/24/18 09:37 Dose: Not Given Gabapentin (Neurontin) 300 mg PO BID [facility] Last Admin: 09/24/18 17:19 Dose: 300 mg Hydrochlorothiazide (Microzide) 12.5 mg PO DAILY [facility] Last Admin: 09/24/18 09:36 Dose: 12.5 mg Piperacillin Sod/Tazobactam Sod (Zosyn 3.375 Gm Iv Premix) 3.375 gm in 50 mls @ 100 mls/hr IVPB Q6H [facility]; Protocol Last Admin: 09/24/18 17:19 Dose: 100 mls/hr Vancomycin/Sodium Chloride (Vancomycin 1 Gm/Ns 200 Ml) 1 gm in 200 mls @ 133 mls/hr IVPB Q12H [facility]; Protocol Stop: 09/26/18 05:46 Last Admin: 09/24/18 17:19 Dose: 133 mls/hr Sodium Chloride (Sodium Chloride 0.9%) 1,000 mls @ 100 mls/hr IV .Q10H [facility] Insulin Aspart (Novolog Mix 70/30 (70/30 Units/Ml)) 24 units SC BID [facility] Last Admin: 09/24/18 17:19 Dose: 24 units Insulin Human Regular (Novolin R) 0 unit SC ACHS [facility]; Protocol Last Admin: 09/24/18 21:34 Dose: Not Given Metoclopramide HCl (Reglan) 5 mg PO BID [facility] Last Admin: 09/24/18 17:19 Dose: 5 mg Metoprolol Succinate (Toprol Xl) 50 mg PO DAILY [facility] Last Admin: 09/24/18 09:36 Dose: 50 mg Oxycodone/Acetaminophen (Percocet 5/325 Mg Tab) 1 tab PO Q4H PRN PRN Reason: Pain, moderate (4-7) Stop: 09/26/18 16:03 Last Admin: 09/23/18 16:27 Dose: 1 tab Rosuvastatin Calcium (Crestor) 40 mg PO HS [facility] Last Admin: 09/24/18 21:37 Dose: 40 mg - Labs Labs: 09/24/18 11:58 09/24/18 11:58 PT 12.6 SECONDS (9.7-12.2) H 09/21/18 01:03 INR 1.2 09/21/18 01:03 APTT 37 SECONDS (21-34) H 09/21/18 01:03 - Constitutional Appears: Well, Non-toxic, No Acute Distress - Extremities Exam Extremities Exam: absent: Calf Tenderness Additional comments: VASC: DP and PT pulses faintly palpable, temperature gradient warm to cool, no digital hair noted, minimal non-pitting edema noted to the right hallux NEURO: gross sensation intact, protective sensation diminished DERM: blue-melissa discoloration noted to the 2nd digit and hallux noted to be resolved at this time, tiny circular lesion noted to the distal plantar aspect of the hallux measuring approximately .3 cm x .3 cm in diameter. does not appear to probe to bone. minimal purulence expressed, no streaking noted, no undermining or tunneling noted, no fluctuance noted ORTHO: moderate-severe pain with palpation to the entire hallux, MM is 4/5 in all four compartments: dorsiflexion, plantarflexion, inversion, and eversion Assessment and Plan - Assessment and Plan (Free Text) Assessment: 53 y/o female seen at bedside for right hallux interdigital and distal tip ulceration Plan: Patient seen and evaluated Plan discussed with Dr. Montoya Patient afebrile and Absent leukocytosis at this time Continue IV abx per ID HbA1c 14.2 X-rays Impression: tranverse lucency 1st distal phalanx, posttraumatic, surgical or post infectious MRI Impression: likely early OM tuft of great toe. Diffuse hammertoe throughout the forefoot right foot. Moderate dorsal soft tissue edema extending into the 1st through 4th digit. ESR- 51 CRP 13.4 from 09/22/18 Site dressed with hydrogen peroxide W2D DSD No plan for surgical intervention at this time Patient to WBAT in surgical shoe LE US: Read pending LE art duplex scan: Read pending Abdominal angiography: RLE - 50% stenosis mid R [employer]. Short segment severe stenosis/near occlusion of the SFA, focal moderate/severe stenosis of the SFA. Focal ostial stenosis of the anterior tibial and peroneal arteries. Three-vessel runoff to the foot. LLE- Short segment area of stenosis in the L SFA distally. Moderate to severe stenosis of the posterior tibial artery. Three-vessel runoff to the foot. R ft WC- Betad Hemolytic Strep Group B, Kocuria Maryae Blood Cultures Pending at this time Patient for revasc with Dr. Bocanegra on Tuesday 09/25 Podiatry will continue to follow while patient in house
--- NOTE | 2018-09-24 23:50 | CP.PCM.PN ---
Subjective - Subjective Subjective: dictated Objective - Vital Signs/Intake and Output Vital Signs (last 24 hours): Temp Pulse Resp BP Pulse Ox 97.8 F 83 20 147/86 98 09/24/18 14:00 09/24/18 14:00 09/24/18 14:00 09/24/18 14:00 09/24/18 14:00 Intake and Output: 09/24/18 09/25/18 18:59 06:59 Intake Total 850 800 Balance 850 800 - Medications Medications: Current Medications Clopidogrel Bisulfate (Plavix) 75 mg PO DAILY [facility] Last Admin: 09/24/18 09:36 Dose: 75 mg Diphenoxylate HCl/Atropine (Lomotil 0.025-2.5 Mg Tablet) 1 tab PO Q4 PRN PRN Reason: Diarrhea Last Admin: 09/24/18 04:48 Dose: 1 tab Dipyridamole/Aspirin (Aggrenox 25-200 Mg) 1 ea PO DAILY [facility] Last Admin: 09/24/18 09:36 Dose: 1 ea Enoxaparin Sodium (Lovenox) 40 mg SC DAILY [facility] Last Admin: 09/24/18 09:37 Dose: Not Given Gabapentin (Neurontin) 300 mg PO BID [facility] Last Admin: 09/24/18 17:19 Dose: 300 mg Hydrochlorothiazide (Microzide) 12.5 mg PO DAILY [facility] Last Admin: 09/24/18 09:36 Dose: 12.5 mg Piperacillin Sod/Tazobactam Sod (Zosyn 3.375 Gm Iv Premix) 3.375 gm in 50 mls @ 100 mls/hr IVPB Q6H [facility]; Protocol Last Admin: 09/24/18 17:19 Dose: 100 mls/hr Vancomycin/Sodium Chloride (Vancomycin 1 Gm/Ns 200 Ml) 1 gm in 200 mls @ 133 mls/hr IVPB Q12H [facility]; Protocol Stop: 09/26/18 05:46 Last Admin: 09/24/18 17:19 Dose: 133 mls/hr Sodium Chloride (Sodium Chloride 0.9%) 1,000 mls @ 100 mls/hr IV .Q10H [facility] Insulin Aspart (Novolog Mix 70/30 (70/30 Units/Ml)) 24 units SC BID [facility] Last Admin: 09/24/18 17:19 Dose: 24 units Insulin Human Regular (Novolin R) 0 unit SC ACHS [facility]; Protocol Last Admin: 09/24/18 21:34 Dose: Not Given Metoclopramide HCl (Reglan) 5 mg PO BID [facility] Last Admin: 09/24/18 17:19 Dose: 5 mg Metoprolol Succinate (Toprol Xl) 50 mg PO DAILY [facility] Last Admin: 09/24/18 09:36 Dose: 50 mg Oxycodone/Acetaminophen (Percocet 5/325 Mg Tab) 1 tab PO Q4H PRN PRN Reason: Pain, moderate (4-7) Stop: 09/26/18 16:03 Last Admin: 09/23/18 16:27 Dose: 1 tab Rosuvastatin Calcium (Crestor) 40 mg PO HS [facility] Last Admin: 09/24/18 21:37 Dose: 40 mg - Labs Labs: 09/24/18 11:58 09/24/18 11:58 PT 12.6 SECONDS (9.7-12.2) H 09/21/18 01:03 INR 1.2 09/21/18 01:03 APTT 37 SECONDS (21-34) H 09/21/18 01:03 Assessment and Plan (1) Gangrene of toe of right foot Status: Acute (2) Coronary artery disease Status: Chronic (3) Diabetes Status: Chronic (4) Hypertension Status: Chronic
[2018-09-25] MEDS: Piperacill/Tazo 3.375gm in Dex 3.375 GM/50 ML BAG IVPB SCH ×5 (00:10→23:44)
[2018-09-25] MEDS: Sodium Chloride 0.9% 1,000 ML IV SCH ×3 (03:21→18:45)
[2018-09-25] MEDS: Vancomycin 1 gm/NS 200 ml 1 GM/200 ML BAG IVPB SCH ×2 (05:30→18:54)
--- NOTE | 2018-09-25 05:35 | PN ---
DATE: 09/24/2018 SUBJECTIVE: The patient is status post angiogram, and angiogram findings are noted and there is extensive disease. No fever, no chills, no nausea or vomiting. PHYSICAL EXAMINATION: VITAL SIGNS: Blood pressure 127/86, pulse 83, respiratory rate 20, and temperature 97.8. LUNGS: Clear. No rales, no rhonchi. CARDIOVASCULAR: S1 and S2 are regular. ABDOMEN: Soft, nontender. Bowel sounds are positive. CENTRAL NERVOUS SYSTEM: Alert and oriented x3. EXTREMITIES: Right big toe ulcer. ASSESSMENT: 1. Ischemic ulcer of right toe. 2. Peripheral arterial disease, status post angiogram. 3. Type 2 diabetes, noncompliant. 4. Hypertension. PLAN: As per Vascular Surgery. Monitor the patient. Maurice Ly MD
[2018-09-25 07:10] LABS: BASO % 0.6 % (0.0-2.0); EOS # 0.2 K/uL (0.0-0.7); EOS % 2.6 % (0.0-4.0); HEMOGLOBIN 10.6 g/dL (11.0-16.0); LYMPH # 1.7 K/uL (1.0-4.3); LYMPH % 25.4 % (20.0-40.0); MEAN CORPUSCULAR HEMOGLOBIN 27.3 pg (27.0-31.0); MEAN CORPUSCULAR HGB CONC 33.7 g/dL (33.0-37.0); MONO # 0.6 K/uL (0.0-0.8); MONO % 9.3 % (0.0-10.0); NEUT # 4.3 K/uL (1.8-7.0); NEUT % 62.1 % (50.0-75.0); RBC 3.88 Mil/uL (3.80-5.20); RED CELL DISTRIBUTION WIDTH 13.5 % (11.5-14.5); WHITE BLOOD COUNT 6.9 K/uL (4.8-10.8)
[2018-09-25 07:19] LABS: CALCIUM 8.8 mg/dl (8.6-10.4)
[2018-09-25] MEDS: (Novolin R) Insulin Human Regular 100 units/ml vial SC SCH ×4 (07:30→21:39)
[2018-09-25 07:50] LABS: PROTHROMBIN TIME 10.9 SECONDS (9.7-12.2)
[2018-09-25] MEDS: Metoprolol Succinate 50 mg XL Tab PO SCH (10:15)
[2018-09-25] MEDS: Aspirin-Dipyridamole 200-25 mg ER Cap PO SCH (10:15)
[2018-09-25] MEDS: (Novolog Mix 70/30) Insulin Aspart/Insulin Aspar 100 units/ml SC SCH ×2 (10:16→18:53)
[2018-09-25] MEDS ORDERED: Lidocaine 2% MPF (5 ml) Inj ONE (13:30)
[2018-09-25] MEDS ORDERED: Iodixanol 320 MG/ML 200 ML BOTTLE IV ONE (13:31)
[2018-09-25] MEDS ORDERED: Iodixanol 320 MG/ML 100 ML BOTTLE IV ONE (13:40)
[2018-09-25] MEDS ORDERED: DiphenhydrAMINE 50 mg/ml Inj ONE (13:57)
--- NOTE | 2018-09-25 16:10 | PCM.SURG1 ---
Surgeon's Initial Post Op Note - Surgeon's Notes Surgeon: alicja Bail Attacher: 0 Type of Anesthesia: IV Sedation Anesthesia Administered By: ani Pre-Operative Diagnosis: gangrene right great toe Operative Findings: severe stenosis proximal to previously placed stent. successful atherectomy/DCBA/ and placement of 6x60 stent. perclose left groin Post-Operative Diagnosis: same Operation Performed: aortofemoral angiogram via left groin. selective catherization of right femoral artery. patheay atherectomy- jetsream. dcb angioplasty sfa. 6x60 innova stent proximal to previous stent. perclose Specimen/Specimens Removed: 0 Estimated Blood Loss: EBL {In ML}: 25 Blood Products Given: N/A Drains Used: No Drains Post-Op Condition: Good Date of Surgery/Procedure: 09/25/18 Time of Surgery/Procedure: 16:15
[2018-09-25] MEDS ORDERED: Dextrose 5%/0.45% NS 1,000 ML IV SCH (16:30)
--- NOTE | 2018-09-25 17:54 | CP.PCM.PN ---
Subjective - Date & Time of Evaluation Date of Evaluation: 09/25/18 Time of Evaluation: 17:53 - Subjective Subjective: persistent ooze at puncture site. No hematoma 3-0 prolene places resolved Objective - Vital Signs/Intake and Output Vital Signs (last 24 hours): Temp Pulse Resp BP Pulse Ox 98.4 F 77 18 148/91 H 96 09/25/18 08:41 09/25/18 10:17 09/25/18 08:41 09/25/18 10:17 09/25/18 08:41 Intake and Output: 09/25/18 09/25/18 06:59 18:59 Intake Total 1200 Output Total 1 Balance 1199 - Medications Medications: Current Medications Clopidogrel Bisulfate (Plavix) 75 mg PO DAILY [facility] Last Admin: 09/25/18 10:15 Dose: 75 mg Diphenoxylate HCl/Atropine (Lomotil 0.025-2.5 Mg Tablet) 1 tab PO Q4 PRN PRN Reason: Diarrhea Last Admin: 09/24/18 04:48 Dose: 1 tab Dipyridamole/Aspirin (Aggrenox 25-200 Mg) 1 ea PO DAILY [facility] Last Admin: 09/25/18 10:15 Dose: 1 ea Enoxaparin Sodium (Lovenox) 40 mg SC DAILY [facility] Last Admin: 09/24/18 09:37 Dose: Not Given Gabapentin (Neurontin) 300 mg PO BID [facility] Last Admin: 09/25/18 10:15 Dose: 300 mg Hydrochlorothiazide (Microzide) 12.5 mg PO DAILY [facility] Last Admin: 09/25/18 10:15 Dose: 12.5 mg Piperacillin Sod/Tazobactam Sod (Zosyn 3.375 Gm Iv Premix) 3.375 gm in 50 mls @ 100 mls/hr IVPB Q6H [facility]; Protocol Last Admin: 09/25/18 11:44 Dose: Not Given Vancomycin/Sodium Chloride (Vancomycin 1 Gm/Ns 200 Ml) 1 gm in 200 mls @ 133 mls/hr IVPB Q12H [facility]; Protocol Stop: 09/26/18 05:46 Last Admin: 09/25/18 05:30 Dose: 133 mls/hr Sodium Chloride (Sodium Chloride 0.9%) 1,000 mls @ 100 mls/hr IV .Q10H [facility] Last Admin: 09/25/18 10:15 Dose: Not Given Dextrose/Sodium Chloride (Dextrose 5%/0.45% Ns 1000 Ml) 1,000 mls @ 100 mls/hr IV .Q10H [facility] Insulin Aspart (Novolog Mix 70/30 (70/30 Units/Ml)) 24 units SC BID [facility] Last Admin: 09/25/18 10:16 Dose: Not Given Insulin Human Regular (Novolin R) 0 unit SC ACHS [facility]; Protocol Last Admin: 09/25/18 11:44 Dose: Not Given Metoclopramide HCl (Reglan) 5 mg PO BID [facility] Last Admin: 09/25/18 10:15 Dose: 5 mg Metoprolol Succinate (Toprol Xl) 50 mg PO DAILY [facility] Last Admin: 09/25/18 10:15 Dose: 50 mg Oxycodone/Acetaminophen (Percocet 5/325 Mg Tab) 1 tab PO Q4H PRN PRN Reason: Pain, moderate (4-7) Stop: 09/26/18 16:03 Last Admin: 09/23/18 16:27 Dose: 1 tab Rosuvastatin Calcium (Crestor) 40 mg PO HS [facility] Last Admin: 09/24/18 21:37 Dose: 40 mg - Labs Labs: 09/25/18 06:50 09/25/18 06:50 PT 10.9 SECONDS (9.7-12.2) 09/25/18 06:50 INR 1.0 09/25/18 06:50 APTT 34 SECONDS (21-34) 09/25/18 06:50
[2018-09-25 18:45] VITALS: RESP 20
[2018-09-26] MEDS: Sodium Chloride 0.9% 1,000 ML IV SCH (05:05)
[2018-09-26] MEDS: Piperacill/Tazo 3.375gm in Dex 3.375 GM/50 ML BAG IVPB SCH (05:06)
[2018-09-26] MEDS: Vancomycin 1 gm/NS 200 ml 1 GM/200 ML BAG IVPB SCH (05:06)
--- NOTE | 2018-09-26 06:23 | CP.PCM.PN ---
Subjective - Date & Time of Evaluation Date of Evaluation: 09/25/18 - Subjective Subjective: dictated Objective - Vital Signs/Intake and Output Vital Signs (last 24 hours): Temp Pulse Resp BP Pulse Ox 97.9 F 71 20 150/80 98 09/25/18 23:51 09/25/18 23:51 09/25/18 23:51 09/25/18 23:51 09/25/18 23:51 Intake and Output: 09/25/18 09/26/18 18:59 06:59 Intake Total 800 Balance 800 - Medications Medications: Current Medications Clopidogrel Bisulfate (Plavix) 75 mg PO DAILY [facility] Last Admin: 09/25/18 10:15 Dose: 75 mg Diphenoxylate HCl/Atropine (Lomotil 0.025-2.5 Mg Tablet) 1 tab PO Q4 PRN PRN Reason: Diarrhea Last Admin: 09/24/18 04:48 Dose: 1 tab Dipyridamole/Aspirin (Aggrenox 25-200 Mg) 1 ea PO DAILY [facility] Last Admin: 09/25/18 10:15 Dose: 1 ea Enoxaparin Sodium (Lovenox) 40 mg SC DAILY [facility] Last Admin: 09/24/18 09:37 Dose: Not Given Gabapentin (Neurontin) 300 mg PO BID [facility] Last Admin: 09/25/18 18:52 Dose: 300 mg Hydrochlorothiazide (Microzide) 12.5 mg PO DAILY [facility] Last Admin: 09/25/18 10:15 Dose: 12.5 mg Sodium Chloride (Sodium Chloride 0.9%) 1,000 mls @ 100 mls/hr IV .Q10H [facility] Last Admin: 09/26/18 05:05 Dose: Not Given Dextrose/Sodium Chloride (Dextrose 5%/0.45% Ns 1000 Ml) 1,000 mls @ 100 mls/hr IV .Q10H [facility] Last Admin: 09/26/18 03:08 Dose: Not Given Insulin Aspart (Novolog Mix 70/30 (70/30 Units/Ml)) 24 units SC BID [facility] Last Admin: 09/25/18 18:53 Dose: 24 units Insulin Human Regular (Novolin R) 0 unit SC ACHS [facility]; Protocol Last Admin: 09/25/18 21:39 Dose: Not Given Metoclopramide HCl (Reglan) 5 mg PO BID [facility] Last Admin: 09/25/18 17:40 Dose: Not Given Metoprolol Succinate (Toprol Xl) 50 mg PO DAILY [facility] Last Admin: 09/25/18 10:15 Dose: 50 mg Oxycodone/Acetaminophen (Percocet 5/325 Mg Tab) 1 tab PO Q4H PRN PRN Reason: Pain, moderate (4-7) Stop: 09/26/18 16:03 Last Admin: 09/23/18 16:27 Dose: 1 tab Rosuvastatin Calcium (Crestor) 40 mg PO HS [facility] Last Admin: 09/25/18 21:41 Dose: 40 mg - Labs Labs: 09/25/18 06:50 09/25/18 06:50 PT 10.9 SECONDS (9.7-12.2) 09/25/18 06:50 INR 1.0 09/25/18 06:50 APTT 34 SECONDS (21-34) 09/25/18 06:50 Assessment and Plan (1) Gangrene of toe of right foot Status: Acute (2) Coronary artery disease Status: Chronic (3) Diabetes Status: Chronic (4) Hypertension Status: Chronic
--- NOTE | 2018-09-26 06:23 | CP.PCM.PN ---
Subjective - Date & Time of Evaluation Date of Evaluation: 09/25/18 - Subjective Subjective: dictated Objective - Vital Signs/Intake and Output Vital Signs (last 24 hours): Temp Pulse Resp BP Pulse Ox 97.9 F 71 20 150/80 98 09/25/18 23:51 09/25/18 23:51 09/25/18 23:51 09/25/18 23:51 09/25/18 23:51 Intake and Output: 09/25/18 09/26/18 18:59 06:59 Intake Total 800 Balance 800 - Medications Medications: Current Medications Clopidogrel Bisulfate (Plavix) 75 mg PO DAILY [facility] Last Admin: 09/25/18 10:15 Dose: 75 mg Diphenoxylate HCl/Atropine (Lomotil 0.025-2.5 Mg Tablet) 1 tab PO Q4 PRN PRN Reason: Diarrhea Last Admin: 09/24/18 04:48 Dose: 1 tab Dipyridamole/Aspirin (Aggrenox 25-200 Mg) 1 ea PO DAILY [facility] Last Admin: 09/25/18 10:15 Dose: 1 ea Enoxaparin Sodium (Lovenox) 40 mg SC DAILY [facility] Last Admin: 09/24/18 09:37 Dose: Not Given Gabapentin (Neurontin) 300 mg PO BID [facility] Last Admin: 09/25/18 18:52 Dose: 300 mg Hydrochlorothiazide (Microzide) 12.5 mg PO DAILY [facility] Last Admin: 09/25/18 10:15 Dose: 12.5 mg Sodium Chloride (Sodium Chloride 0.9%) 1,000 mls @ 100 mls/hr IV .Q10H [facility] Last Admin: 09/26/18 05:05 Dose: Not Given Dextrose/Sodium Chloride (Dextrose 5%/0.45% Ns 1000 Ml) 1,000 mls @ 100 mls/hr IV .Q10H [facility] Last Admin: 09/26/18 03:08 Dose: Not Given Insulin Aspart (Novolog Mix 70/30 (70/30 Units/Ml)) 24 units SC BID [facility] Last Admin: 09/25/18 18:53 Dose: 24 units Insulin Human Regular (Novolin R) 0 unit SC ACHS [facility]; Protocol Last Admin: 09/25/18 21:39 Dose: Not Given Metoclopramide HCl (Reglan) 5 mg PO BID [facility] Last Admin: 09/25/18 17:40 Dose: Not Given Metoprolol Succinate (Toprol Xl) 50 mg PO DAILY [facility] Last Admin: 09/25/18 10:15 Dose: 50 mg Oxycodone/Acetaminophen (Percocet 5/325 Mg Tab) 1 tab PO Q4H PRN PRN Reason: Pain, moderate (4-7) Stop: 09/26/18 16:03 Last Admin: 09/23/18 16:27 Dose: 1 tab Rosuvastatin Calcium (Crestor) 40 mg PO HS [facility] Last Admin: 09/25/18 21:41 Dose: 40 mg - Labs Labs: 09/25/18 06:50 09/25/18 06:50 PT 10.9 SECONDS (9.7-12.2) 09/25/18 06:50 INR 1.0 09/25/18 06:50 APTT 34 SECONDS (21-34) 09/25/18 06:50 Assessment and Plan (1) Gangrene of toe of right foot Status: Acute (2) Coronary artery disease Status: Chronic (3) Diabetes Status: Chronic (4) Hypertension Status: Chronic
[2018-09-26] MEDS: (Novolin R) Insulin Human Regular 100 units/ml vial SC SCH ×3 (07:30→17:07)
[2018-09-26] MEDS: Metoprolol Succinate 50 mg XL Tab PO SCH (09:37)
[2018-09-26] MEDS: Aspirin-Dipyridamole 200-25 mg ER Cap PO SCH (09:39)
[2018-09-26] MEDS: (Novolog Mix 70/30) Insulin Aspart/Insulin Aspar 100 units/ml SC SCH ×2 (09:40→18:22)
[2018-09-26] MEDS: Piperacillin/Tazobact 3.375 GM in Sodium Chloride 100 ML IVPB SCH ×2 (12:15→18:22)
--- NOTE | 2018-09-26 13:15 | PN ---
DATE: 09/26/2018 SUBJECTIVE: The patient is seen at bedside alert and oriented x3. She is on peripheral stenting procedure done by Dr. Bocanegra yesterday with good results. The patient is seen and the hallux was evaluated at bedside. No drainage, less tenderness on palpation. In light of the fact that she had a previous osteomyelitis of the hallux, I suggested the patient that subacute IV antibiotics be continued; however, the patient is refusing. At this point, we will step back and allow the infectious disease specialist to suggest an oral antibiotic protocol. Local wound care management discussed with the patient. She will follow up in my office in one week. Surinder Chaudhary DPM
--- NOTE | 2018-09-26 13:37 | PN ---
DATE: 09/26/2018 SUBJECTIVE: The patientZoe is status post angioplasty. Discussed with Dr. Bocanegra. The patient needs to be compliant with diet, medications, and followup. Hemoglobin A1c was over 14. No fever. No chills. No chest pain. PHYSICAL EXAMINATION: VITAL SIGNS: Blood pressure /86, pulse 73, respiratory rate 20, and temperature 97.7. LUNGS: Clear. No rales, no rhonchi. CARDIOVASCULAR SYSTEM: S1 and S2, regular. ABDOMEN: Soft. ASSESSMENT: 1. Peripheral arterial disease, status post angioplasty. 2. Type 2 diabetes. 3. Hyperlipidemia. 4. Hypertension. PLAN: Continue status post angioplasty. The patient needs Plavix. The patient will be followed up closely. Maurice Ly MD
--- NOTE | 2018-09-26 13:51 | OP ---
PROCEDURE DATE: 09/25/2018 PREOPERATIVE DIAGNOSIS: Gangrene, right fifth toe. POSTOPERATIVE DIAGNOSIS: Gangrene, right fifth toe. PROCEDURE CARRIED OUT: Aortofemoral angiogram via left groin with selective catheterization of right femoral artery, Pathway/Jetstream atherectomy of the right superficial femoral artery, balloon angioplasty with drug-coated balloon 5 and 6 mm, and finally deployment of a 6 mm x 60 stent in the proximal portion of the superficial femoral artery. SURGEON: Phil Bocanegra Jr., MD MARKETING PROJECT SPECIALIST: None. ANESTHESIOLOGIST: Lidia . ANESTHESIA: Local with sedation. INDICATION: The patient is a middle-aged woman who has variety of problems including diabetes, previous intervention on her right leg, diffusely small vessel. OPERATIVE FINDINGS: Aorta and renal arteries, common iliac arteries, external iliac arteries, and internal iliac arteries are more or less okay. The right common femoral artery had a mild degree of stenosis, approximately 30%. Below this, the superficial femoral artery was occluded in a string like stenosis/occlusion just above her previously placed stent. Below this, there was a two and a half vessel runoff via the anterior tibial and posterior tibial arteries. On the left side, we obtained detailed pictures down to the level of the knee, there was no evidence of occlusion seen below this, so we did not obtain detailed pictures of the tibial vessels. Subsequent to the performance of the diagnostic arteriogram, a stiff-angled guidewire was advanced over the aorta bifurcation, a 7-Amharic sheath positioned in the proximal portion of the common femoral artery. Using road mapping techniques, we were able to cross this superficial femoral artery into the previously placed stent. There was some dissection in this area. We then eventually closed this wound for a wire, deployed a filter wire additionally at the level of the knee, and heparinized the patient atherectomy device, which worked quite well and then we ballooned this. There was a persistent area of stenosis above the previously placed stent, which did not respond despite two balloonings and there was a small area of dissection proximal to this. We then ballooned this and placed a 6 mm Innova stent with excellent cosmetic results. We then terminated the procedure, deployed the Perclose in the left groin. Blood loss for the procedure was 50 mL. PROCEDURE CARRIED OUT: Aortofemoral angiogram via left groin with selective catheterization of right femoral artery, Pathway/Jetstream atherectomy of the right superficial femoral artery, balloon angioplasty using a 5 and 6 mm drug-coated balloons and then deployment of a 6 mm stent. Perclose device was used to close the left groin. Phil Bocanegra Jr., MD
--- NOTE | 2018-09-26 15:25 | CP.PCM.PN ---
Subjective - Date & Time of Evaluation Date of Evaluation: 09/26/18 Time of Evaluation: 10:30 - Subjective Subjective: Surgery progress note for Dr. Bocanegra pt seen and examined at bedside this AM. No adverse events overnight. patient states pain is well controlled on current regimen Objective - Vital Signs/Intake and Output Vital Signs (last 24 hours): Temp Pulse Resp BP Pulse Ox 98 F 82 20 152/87 H 96 09/26/18 08:00 09/26/18 08:00 09/26/18 08:00 09/26/18 08:00 09/26/18 08:00 Intake and Output: 09/26/18 09/26/18 06:59 18:59 Intake Total 800 Balance 800 - Medications Medications: Current Medications Clopidogrel Bisulfate (Plavix) 75 mg PO DAILY [facility] Last Admin: 09/26/18 09:39 Dose: 75 mg Diphenoxylate HCl/Atropine (Lomotil 0.025-2.5 Mg Tablet) 1 tab PO Q4 PRN PRN Reason: Diarrhea Last Admin: 09/24/18 04:48 Dose: 1 tab Dipyridamole/Aspirin (Aggrenox 25-200 Mg) 1 ea PO DAILY [facility] Last Admin: 09/26/18 09:39 Dose: 1 ea Enoxaparin Sodium (Lovenox) 40 mg SC DAILY [facility] Last Admin: 09/24/18 09:37 Dose: Not Given Gabapentin (Neurontin) 300 mg PO BID [facility] Last Admin: 09/26/18 09:37 Dose: 300 mg Hydrochlorothiazide (Microzide) 12.5 mg PO DAILY [facility] Last Admin: 09/26/18 09:38 Dose: 12.5 mg Dextrose/Sodium Chloride (Dextrose 5%/0.45% Ns 1000 Ml) 1,000 mls @ 100 mls/hr IV .Q10H [facility] Last Admin: 09/26/18 03:08 Dose: Not Given Piperacillin Sod/Tazobactam (Sod 3.375 gm/ Sodium Chloride) 100 mls @ 200 mls/hr IVPB Q6H [facility]; Protocol Last Admin: 09/26/18 12:15 Dose: 200 mls/hr Insulin Aspart (Novolog Mix 70/30 (70/30 Units/Ml)) 26 units SC BID [facility] Last Admin: 09/26/18 09:40 Dose: 26 units Insulin Human Regular (Novolin R) 0 unit SC ACHS [facility]; Protocol Last Admin: 09/26/18 12:26 Dose: 2 units Metoclopramide HCl (Reglan) 5 mg PO BID [facility] Last Admin: 09/26/18 09:37 Dose: 5 mg Metoprolol Succinate (Toprol Xl) 50 mg PO DAILY [facility] Last Admin: 09/26/18 09:37 Dose: 50 mg Oxycodone/Acetaminophen (Percocet 5/325 Mg Tab) 1 tab PO Q4H PRN PRN Reason: Pain, moderate (4-7) Stop: 09/26/18 16:03 Last Admin: 09/23/18 16:27 Dose: 1 tab Rosuvastatin Calcium (Crestor) [address] [facility] Last Admin: 09/25/18 21:41 Dose: 40 mg Sitagliptin Phosphate (Januvia) 100 mg PO DAILY [facility] Last Admin: 09/26/18 09:38 Dose: 100 mg - Labs Labs: 09/25/18 06:50 09/25/18 06:50 PT 10.9 SECONDS (9.7-12.2) 09/25/18 06:50 INR 1.0 09/25/18 06:50 APTT 34 SECONDS (21-34) 09/25/18 06:50 - Constitutional Appears: Well, Non-toxic, No Acute Distress - Head Exam Head Exam: ATRAUMATIC, NORMOCEPHALIC - Eye Exam Eye Exam: Normal appearance. absent: Conjunctival injection, Scleral icterus - ENT Exam ENT Exam: Mucous Membranes Moist, Normal Oropharynx - Respiratory Exam Respiratory Exam: NORMAL BREATHING PATTERN. absent: Accessory Muscle Use, Respiratory Distress - Cardiovascular Exam Cardiovascular Exam: RRR - GI/Abdominal Exam GI & Abdominal Exam: Soft. absent: Distended - Extremities Exam Additional comments: dressing c/d/i, foot warm, palpable DP pulse - Neurological Exam Neurological Exam: Alert, Awake - Psychiatric Exam Psychiatric exam: Normal Affect, Normal Mood - Skin Skin Exam: Dry, Normal Color, Warm Assessment and Plan - Assessment and Plan (Free Text) Assessment: 53F POD#1 s/p balloon angioplasty with stent of the right femoral artery Plan: No further vascular surgical intervention indicated Pt may follow up with Dr. Bocanegra in his office in 2 weeks Leave dressings in place PT PRN pain medication Medical management per primary Discussed with Dr. Bocanegra who agrees with above Bernie Downey, PGY2
[2018-09-26 16:09] VITALS: BP 118/65; PULSE 91; TEMP 97.9; O2SAT 98
--- NOTE | 2018-09-26 18:36 | CP.PCM.CON ---
History of Present Illness - History of Present Illness History of Present Illness: 53F with PMHx of CAD, PVD, HTN, HLD, DM2 admitted with right hallux and 2nd digit discoloration. Found to have early OM right hallux and severe PVD Had vascular eval with stent placement ID consulted for antibiotics Currently on Zosyn No deep bone cultures obtainable PMHx: CAD, PVD, HTN, HLD, DM2 PSH: hysterectomy, right foot surgery, stents ALL: NKDA MEDS: see MAR list FH: father- CAD, DM, mother- DM, colon cancer SH: denies smoking drinking or illicit drug use Review of Systems - Review of Systems All systems: reviewed and no additional remarkable complaints except - Constitutional Constitutional: absent: As Per HPI, Anorexia, Chills, Daytime Sleepiness, Excessive Sweating, Fatigue, Fever, Frequent Falls, Headache, Increased Appetite, Lethargy, Malaise, Night Sweats, Snoring, Sleep Apnea, Weight Gain, W eight Loss, Weakness, Other - EENT Eyes: absent: As Per HPI, Blind Spots, Blurred Vision, Change in Vision, Decreased Night Vision, Diplopia, Discharge, Dry Eye, Exophthalmos, Floaters, Irritation, Itchy Eyes, Loss of Peripheral Vision, Pain, Photophobia, Requires Corrective Lenses, Sees Flashes, Spots in Vision, Tunnel Vision, Other Visual Disturbances, Loss of Vision, Other Ears: absent: As Per HPI, Decreased Hearing, Ear Discharge, Ear Pain, Tinnitus, Abnormal Hearing, Disequilibrium, Dizziness, Other Nose/Mouth/Throat: absent: As Per HPI, Epistaxis, Nasal Congestion, Nasal Discharge, Nasal Obstruction, Nasal Trauma, Nose Pain, Post Nasal Drip, Sinus Pain, Sinus Pressure, Bleeding Gums, Change in Voice, Dental Pain, Dry Mouth, Dysphagia, Halitosis, Hoarsness, Lip Swelling, Mouth Lesions, Mouth Pain, Odynophagia, Sore Throat, Throat Swelling, Tongue Swelling, Facial Pain, Neck Pain, Neck Mass, Other - Cardiovascular Cardiovascular: As Per HPI - Gastrointestinal Gastrointestinal: absent: As Per HPI, Abdominal Pain, Belching, Bloating, Change in Bowel Habits, Change in Stool Character, Coffee Ground Emesis, Constipation, Cramping, Diarrhea, Dyspepsia, Dysphagia, Early Satiety, Excessive Flatus, Fecal Incontinence, Heartburn, Hematemesis, Hematochezia, Loose Stools, Melena, Nausea, Odynophagia, Temesmus, Vomiting, Other - Genitourinary Genitourinary: absent: As Per HPI, Change in Urinary Stream, Difficulty Urinating, Dysuria, Flank Pain, Hematuria, Pyuria, Nocturia, Urinary Incontinence, Urinary Frequency, Urinary Hesitance, Urinary Urgency, Voiding Freq/Small Amts, Freq UTI, Hx Renal/Bladder Calculi, Hx /Renal Surgery, Bladder Distension, Other - Reproductive: Female Reproductive:Female: absent: As Per HPI, Amenorrhea, Amenorrhea/ Control, Currently Menstual, Cycle <21 Days, Cycle >35 Days, Cycle Variable, Menses 1-7 Days, Menses >/= 8 Days, Menses Variable, Cycle > 4 Weeks Between, No Menses for 6 Months, Heavy Menses, Light Menses, Normal Menses, Spotting Between Cycles, S/P Hysterectomy, Menopausal, Post Menopausal, Premenarche, Abnormal Vaginal Bleeding, Dysmenorrhea, Dyspareunia, Genital Lesions, Genital Pruritis, Pelvic Pain, Prolapse Symptoms, Sexual Dysfunction, Vaginal Discharge, Vaginal Dryness, Vaginal Odor, Vaginal Pruritis, Other - Menstruation Menstruation: absent: As Per HPI, Amenorrhea, Amenorrhea/ Control, Currently Menstual, Cycle <21 Days, Cycle >35 Days, Cycle Variable, Menses 1-7 Days, Menses >/= 8 Days, Menses Variable, Cycle > 4 Weeks Between, No Menses for 6 Months, Heavy Menses, Light Menses, Normal Menses, Spotting Between Cycles, S /P Hysterectomy, Menopausal, Post Menopausal, Premenarche, Abnormal Vaginal Bleeding, Dysmenorrhea, Other - Musculoskeletal Musculoskeletal: As Per HPI - Integumentary Integumentary: As Per HPI - Neurological Neurological: absent: As Per HPI, Abnormal Gait, Abnormal Hearing, Abnormal Movements, Abnormal Speech, Behavioral Changes, Burning Sensations, Confusion, Convulsions, Disequilibrium, Dizziness, Numbness, Focal Weakness, Frequent Falls, Headaches, Lack of Coordination, Loss of Vision, Memory Loss, Paresthesias, Radicular Pain, Restless Legs, Sensory Deficit, Syncope, Tingling, Tremor, Vertigo, Weakness, Other Visual Disturbances, Other - Psychiatric Psychiatric: absent: As Per HPI, Abnormal Sleep Pattern, Anhedonia, Anxiety, Auditory Hallucinations, Behavioral Changes, Change in Appetite, Change in Libido, Confusion, Depression, Difficulty Concentrating, Hallucinations, Homicidal Ideation, Hopelessness, Irritability, Memory Loss, Mood Swings, Panic Attacks, Paranoia, Suicidal Ideation, Visual Hallucinations, Tactile Halluci nations, Other - Endocrine Endocrine: absent: As Per HPI, Change in Body Appearance, Change in Libido, Cold Intolorance, Deepening of Voice, Excessive Sweating, Fatigue, Flushing, Heat Intolorance, Increase in Ring/Shoe/Hat Size, Palpitations, Polydipsia, Polyp hagia, Polyuria, Other - Hematologic/Lymphatic Hematologic: absent: As Per HPI, Easy Bleeding, Easy Bruising, Lymphadenopathy, Other Past Patient History - Infectious Disease Hx of Infectious Diseases: None - Past Medical History & Family History Past Medical History?: Yes - Past Social History Smoking Status: Never Smoked - CARDIAC Hx Hypercholesterolemia: Yes Hx Hypertension: Yes - PULMONARY Hx Respiratory Disorders: No - NEUROLOGICAL HX Cerebrovascular Accident: Yes - HEENT Hx HEENT Problems: No - RENAL Hx Chronic Kidney Disease: No - ENDOCRINE/METABOLIC Hx Diabetes Mellitus Type 2: Yes - HEMATOLOGICAL/ONCOLOGICAL Hx Blood Disorders: No - INTEGUMENTARY Hx Dermatological Problems: No - MUSCULOSKELETAL/RHEUMATOLOGICAL Hx Falls: No - GASTROINTESTINAL Hx Gastrointestinal Disorders: No - GENITOURINARY/GYNECOLOGICAL Hx Genitourinary Disorders: No - PSYCHIATRIC Hx Substance Use: No - SURGICAL HISTORY Hx Coronary Stent: Yes (5 stents) - ANESTHESIA Hx Anesthesia: Yes Hx Anesthesia Reactions: No Meds Allergies/Adverse Reactions: Allergies Allergy/AdvReac Type Severity Reaction Status Date / Time No Known Allergies Allergy Verified 09/21/18 00:23 - Medications Medications: Current Medications Clopidogrel Bisulfate (Plavix) 75 mg PO DAILY [facility] Last Admin: 09/26/18 09:39 Dose: 75 mg Diphenoxylate HCl/Atropine (Lomotil 0.025-2.5 Mg Tablet) 1 tab PO Q4 PRN PRN Reason: Diarrhea Last Admin: 09/24/18 04:48 Dose: 1 tab Dipyridamole/Aspirin (Aggrenox 25-200 Mg) 1 ea PO DAILY [facility] Last Admin: 09/26/18 09:39 Dose: 1 ea Enoxaparin Sodium (Lovenox) 40 mg SC DAILY [facility] Last Admin: 09/24/18 09:37 Dose: Not Given Gabapentin (Neurontin) 300 mg PO BID [facility] Last Admin: 09/26/18 18:22 Dose: 300 mg Hydrochlorothiazide (Microzide) 12.5 mg PO DAILY [facility] Last Admin: 09/26/18 09:38 Dose: 12.5 mg Dextrose/Sodium Chloride (Dextrose 5%/0.45% Ns 1000 Ml) 1,000 mls @ 100 mls/hr IV .Q10H [facility] Last Admin: 09/26/18 03:08 Dose: Not Given Piperacillin Sod/Tazobactam (Sod 3.375 gm/ Sodium Chloride) 100 mls @ 200 mls/hr IVPB Q6H [facility]; Protocol Last Admin: 09/26/18 18:22 Dose: 200 mls/hr Insulin Aspart (Novolog Mix 70/30 (70/30 Units/Ml)) 26 units SC BID [facility] Last Admin: 09/26/18 18:22 Dose: 26 units Insulin Human Regular (Novolin R) 0 unit SC ACHS [facility]; Protocol Last Admin: 09/26/18 17:07 Dose: Not Given Metoclopramide HCl (Reglan) 5 mg PO BID [facility] Last Admin: 09/26/18 18:22 Dose: 5 mg Metoprolol Succinate (Toprol Xl) 50 mg PO DAILY [facility] Last Admin: 09/26/18 09:37 Dose: 50 mg Rosuvastatin Calcium (Crestor) 40 mg PO HS [facility] Last Admin: 09/25/18 21:41 Dose: 40 mg Sitagliptin Phosphate (Januvia) 100 mg PO DAILY [facility] Last Admin: 09/26/18 09:38 Dose: 100 mg Physical Exam - Constitutional Appears: Non-toxic, Chronically Ill - Head Exam Head Exam: NORMOCEPHALIC - Eye Exam Eye Exam: absent: Scleral icterus - ENT Exam ENT Exam: Mucous Membranes Dry - Neck Exam Neck exam: Negative for: Lymphadenopathy - Respiratory Exam Respiratory Exam: Decreased Breath Sounds - Cardiovascular Exam Cardiovascular Exam: REGULAR RHYTHM - GI/Abdominal Exam GI & Abdominal Exam: Diminished Bowel Sounds, Soft - Rectal Exam Rectal Exam: Deferred - Exam Exam: NORMAL INSPECTION - Extremities Exam Extremities exam: Positive for: pedal edema Additional comments: VASC: DP and PT unpalpable, temperature gradient warm to cool, no digital hair noted, nonpitting edema noted to the right hallux ORTHO: severe pain with palpation to the entire hallux, MM is 4/5 in all four compartments: dorsiflexion, plantarflexion, inversion, and eversion NEURO: gross sensation intact, protective sensation diminished DERM: blue-melissa discoloration noted to the 2nd digit and hallux, tiny circular lesion noted to the plantar aspect of the hallux measuring approximately .5 cm x .5cm in diameter. does not appear to probe to bone. .2 cc of purulence drainage expressed. no streaking noted, no undermining or tunneling noted, mild fluctanance noted. - Back Exam Back exam: absent: CVA tenderness (L), CVA tenderness (R) - Neurological Exam Neurological exam: Alert, CN II-XII Intact, Oriented x3, Reflexes Normal - Psychiatric Exam Psychiatric exam: Normal Mood - Skin Skin Exam: Dry Results - Vital Signs Recent Vital Signs: Last Vital Signs Temp 97.9 F 09/26/18 16:08 Pulse 91 H 09/26/18 16:08 Resp 20 09/26/18 16:08 BP 118/65 09/26/18 16:08 Pulse Ox 98 09/26/18 16:08 - Labs Result Diagrams: 09/25/18 06:50 09/25/18 06:50 Labs: Laboratory Results - last 24 hr 09/25/18 09/25/18 09/26/18 18:42 21:19 05:58 POC Glucose (mg/dL) 180 H 258 H 152 H 09/26/18 09/26/18 11:17 16:33 POC Glucose (mg/dL) 169 H 137 H Assessment & Plan (1) Ischemic necrosis of toe Status: Acute Priority: High (2) Peripheral vascular disease of extremity Status: Acute (3) Coronary artery disease Status: Chronic Priority: Low (4) Diabetes Status: Chronic Priority: Medium (5) Hypertension Status: Chronic Priority: Medium - Assessment and Plan (Free Text) Assessment: 53 yo female with OM of foot severe PVD recc: 6 weeks IV rx may consider adding Vanco to zosyn if she agrees to stay will need PICC line for custodial IV antiiotics
--- NOTE | 2018-09-26 21:21 | CP.PCM.DIS ---
Provider - Provider Date of Admission: 09/21/18 05:27 Attending physician: Maurice Ly MD Diagnosis - Discharge Diagnosis (1) Gangrene of toe of right foot Status: Acute (2) Coronary artery disease Status: Chronic Priority: Low (3) Diabetes Status: Chronic Priority: Medium (4) Hypertension Status: Chronic Priority: Medium Hospital Course - Lab Results Lab Results: Micro Results 09/21/18 07:08 Blood-Venous Blood Culture - Final NO GROWTH AFTER 5 DAYS 09/21/18 07:08 Blood-Venous Gram Stain - Final TEST NOT PERFORMED 09/21/18 07:08 Blood-Venous Blood Culture - Final NO GROWTH AFTER 5 DAYS 09/21/18 07:08 Blood-Venous Gram Stain - Final TEST NOT PERFORMED 09/21/18 13:50 Foot - Right Gram Stain - Final 09/21/18 13:50 Foot - Right Wound Culture - Final Beta Hemolytic Strep Group B [facility] [place] Most Recent Lab Values WBC 6.9 K/uL (4.8-10.8) 09/25/18 06:50 RBC 3.88 Mil/uL (3.80-5.20) 09/25/18 06:50 Hgb 10.6 g/dL (11.0-16.0) L 09/25/18 06:50 Hct 31.5 % (34.0-47.0) L 09/25/18 06:50 MCV 81.0 fL (81.0-99.0) 09/25/18 06:50 MCH 27.3 pg (27.0-31.0) 09/25/18 06:50 MCHC 33.7 g/dL (33.0-37.0) 09/25/18 06:50 RDW 13.5 % (11.5-14.5) 09/25/18 06:50 Plt Count 296 K/uL (130-400) 09/25/18 06:50 MPV 8.0 fL (7.2-11.7) 09/25/18 06:50 Neut % (Auto) 62.1 % (50.0-75.0) 09/25/18 06:50 Lymph % (Auto) 25.4 % (20.0-40.0) 09/25/18 06:50 [place] % (Auto) 9.3 % (0.0-10.0) 09/25/18 06:50 Eos % (Auto) 2.6 % (0.0-4.0) 09/25/18 06:50 Baso % (Auto) 0.6 % (0.0-2.0) 09/25/18 06:50 Neut # (Auto) 4.3 K/uL (1.8-7.0) 09/25/18 06:50 Lymph # (Auto) 1.7 K/uL (1.0-4.3) 09/25/18 06:50 [place] # (Auto) 0.6 K/uL (0.0-0.8) 09/25/18 06:50 Eos # (Auto) 0.2 K/uL (0.0-0.7) 09/25/18 06:50 Baso # (Auto) 0.0 K/uL (0.0-0.2) 09/25/18 06:50 ESR 51 mm/hr (0-20) H 09/23/18 07:28 PT 10.9 SECONDS (9.7-12.2) 09/25/18 06:50 INR 1.0 09/25/18 06:50 APTT 34 SECONDS (21-34) 09/25/18 06:50 pO2 21 mm/Hg (30-55) L 09/21/18 00:55 VBG pH 7.32 (7.32-7.43) 09/21/18 00:55 VBG pCO2 55 mmHg (40-60) 09/21/18 00:55 VBG HCO3 23.9 mmol/L 09/21/18 00:55 VBG Total CO2 30.0 mmol/L (22-28) H 09/21/18 00:55 VBG O2 Sat (Calc) 35.4 % (40-65) L 09/21/18 00:55 VBG Base Excess 1.1 mmol/L (0.0-2.0) 09/21/18 00:55 VBG Potassium 3.6 mmol/L (3.6-5.2) 09/21/18 00:55 Sodium 142.0 mmol/l (132-148) 09/21/18 00:55 Chloride 106.0 mmol/L (98-107) 09/21/18 00:55 Glucose 450 mg/dl (65-105) H* 09/21/18 00:55 Lactate 4.3 mmol/L (0.7-2.1) H* 09/21/18 00:55 Crit Value Called To Dimitri hutton rn 09/21/18 00:55 Crit Value Called By Pebbles tabor rt 09/21/18 00:55 Crit Value Read Back Y 09/21/18 00:55 Blood Gas Notified Time 114 09/21/18 00:55 Sodium 138 mmol/L (132-148) 09/25/18 06:50 Potassium 3.9 mmol/L (3.6-5.2) 09/25/18 06:50 Chloride 107 mmol/L (98-107) 09/25/18 06:50 Carbon Dioxide 23 mmol/L (22-30) 09/25/18 06:50 Anion Gap 12 (10-20) 09/25/18 06:50 BUN 20 mg/dL (7-17) H 09/25/18 06:50 Creatinine 1.2 mg/dL (0.7-1.2) 09/25/18 06:50 Est GFR ( Amer) 57 09/25/18 06:50 Est GFR (Non-Af Amer) 47 09/25/18 06:50 POC Glucose (mg/dL) 137 mg/dL (65-110) H 09/26/18 16:33 Random Glucose 262 mg/dL (65-105) H 09/25/18 06:50 Hemoglobin A1c 14.2 % (4.2-6.5) H 09/21/18 05:51 Lactic Acid 1.8 mmol/L (0.7-2.1) 09/21/18 10:16 Calcium 8.8 mg/dl (8.6-10.4) 09/25/18 06:50 Total Bilirubin 0.3 mg/dL (0.2-1.3) 09/23/18 07:28 AST 10 U/L (14-36) L 09/23/18 07:28 ALT 18 U/L (9-52) 09/23/18 07:28 Alkaline Phosphatase 110 U/L (38-126) 09/23/18 07:28 C-Reactive Protein 13.40 mg/L (0.0-9.9) H 09/22/18 06:18 Total Protein 6.3 g/dL (6.3-8.3) 09/23/18 07:28 Albumin 3.0 g/dL (3.5-5.0) L 09/23/18 07:28 Globulin 3.3 gm/dL (2.2-3.9) 09/23/18 07:28 Albumin/Globulin Ratio 0.9 (1.0-2.1) L 09/23/18 07:28 Triglycerides 306 mg/dL (0-149) H D 09/21/18 05:51 Cholesterol 184 mg/dL (0-199) 09/21/18 05:51 LDL Cholesterol Direct 114 mg/dL (0-129) 09/21/18 05:51 HDL Cholesterol 22 mg/dL (30-70) L 09/21/18 05:51 Venous Blood Potassium 3.6 mmol/L (3.6-5.2) 09/21/18 00:55 Urine Color Yellow (YELLOW) 09/22/18 08:13 Urine Clarity Clear (Clear) 09/22/18 08:13 Urine pH 5.0 (5.0-8.0) 09/22/18 08:13 Ur Specific [place] 1.019 (1.003-1.030) 09/22/18 08:13 Urine Protein 1+ mg/dL (NEGATIVE) H 09/22/18 08:13 Urine Glucose (UA) 2+ mg/dL (Normal) H 09/22/18 08:13 Urine Ketones Negative mg/dL (NEGATIVE) 09/22/18 08:13 Urine Blood Negative (NEGATIVE) 09/22/18 08:13 Urine Nitrate Negative (NEGATIVE) 09/22/18 08:13 Urine Bilirubin Negative (NEGATIVE) 09/22/18 08:13 Urine Urobilinogen Normal mg/dL (0.2-1.0) 09/22/18 08:13 Ur Leukocyte Esterase Neg Saul/uL (Negative) 09/22/18 08:13 Urine WBC (Auto) 3 /hpf (0-5) 09/22/18 08:13 Urine RBC (Auto) 3 /hpf (0-3) 09/22/18 08:13 Ur Squamous Epith Cells 2 /hpf (0-5) 09/22/18 08:13 Urine Yeast (Budding) Few /hpf (NEGATIVE) H 09/22/18 08:13 Vancomycin Trough 16.8 ug/mL (5.0-10.0) H 09/24/18 12:19 B-Hydroxybutyrate 0.08 mM (0.02-0.27) 09/21/18 02:22 C. difficile Ag & Toxin Negative (NEGATIVE) 09/24/18 16:02 Discharge Exam - Head Exam Head Exam: NORMOCEPHALIC Discharge Plan - Follow Up Plan Condition: FAIR Disposition: AGAINST MEDICAL ADVICE
--- NOTE | 2018-09-27 11:52 | VASCLAB ---
Date of service: 09/22/2018 STUDY DESCRIPTION: Lower Extremity Arterial Exam (PVR). HISTORY: BISHOP Index PAD, Right diabetic foot ulceration PRIORS: None. TECHNIQUE: Pulse volume recording waveforms and segmental pressures of bilateral lower extremities at multiple levels were obtained. Ankle Brachial Indices (ABIs) were calculated. Report prepared by Florentino Arthur RVT RIGHT LOWER EXTREMITY: * Brachial artery: Pressure - 178 mmHg. * High thigh: Pressure - mmHg: Ratio - : PVR waveform - Pulsatile * Low thigh: Pressure - mmHg: Ratio - PVR waveform: Pulsatile * Calf: Pressure - 142 mmHg: Ratio - 0.80 PVR waveform: Pulsatile * Posterior tibial Artery: Pressure - 139 mmHg: Ratio - 0.78 PVR waveform: Pulsatile * Dorsalis pedis Artery: Pressure - 144 mmHg: Ratio - 0.81 PVR waveform: Pulsatile * Great toe: Pressure - 107 mmHg: Ratio - 0.60 PVR waveform: Reduced Ankle brachial index (BISHOP): 0.81 LEFT LOWER EXTREMITY: * Brachial artery: Pressure - 174 mmHg. * High thigh: Pressure - 220 mmHg: Ratio - 1.24: PVR waveform - Pulsatile * Low thigh: Pressure - 210 mmHg: Ratio - 1.18 PVR waveform: Pulsatile * Calf: Pressure - 190 mmHg: Ratio - 1.07 PVR waveform: Pulsatile * Posterior tibial Artery: Pressure - 164 mmHg: Ratio - 0.92 PVR waveform: Pulsatile * Dorsalis pedis Artery: Pressure - 169 mmHg: Ratio - 0.95 PVR waveform: Pulsatile * Great toe: Pressure - 154 mmHg: Ratio - 0.87 PVR waveform: Pulsatile Ankle brachial index (BISHOP): 0.95 OTHER FINDINGS: IMPRESSION: Right: There was evidence of mild to moderate femoro-popliteal and mild infrapopliteal arterial occlusive disease of the right lower extremity. TBI 0.60 range, consistent with intermittent claudication range. Left: There was evidence of mild femoro-popliteal arterial occlusive disease of the left lower extremity.
--- NOTE | 2018-09-27 12:22 | VASCLAB ---
Date of service: 2018-09-22 08:35:38 PROCEDURE: Right Lower Extremity Arterial Exam. HISTORY: Previous stent, PAD COMPARISON: None available. TECHNIQUE: Grayscale and duplex Doppler evaluation of the right common femoral, femoral, profunda femoral, popliteal, posterior tibial, anterior tibial and dorsalis pedis arteries was performed. Report prepared by XOCHITL PettyT FINDINGS: RIGHT LOWER EXTREMITY: * Common Femoral Artery: Peak Systolic Velocity - 246: Doppler Waveform: Biphasic: Plaque description - Heterogeneous * Profunda Femoral Artery: Not optimally evaluated. * Femoral Artery o Proximal Segment: Peak Systolic Velocity - 183.3: Doppler Waveform: Monophasic: Plaque description - Heterogeneous o Middle Segment: Peak Systolic Velocity - 64.6: Doppler Waveform: Monophasic: Plaque description - Heterogeneous o Distal Segment: Peak Systolic Velocity - 59.4: Doppler Waveform: Monophasic: Plaque description - Heterogeneous * Popliteal Artery o Proximal Segment: Peak Systolic Velocity - 98.4: Doppler Waveform: Monophasic: Plaque description - Patent STENT with slow flow. Multifocal areas of InStent stenosis suggested. IMPRESSION: Patent stent with slow forward flow of blood. Mild to moderate femoro-popliteal arterial occlusive disease noted in the right lower extremity.
--- NOTE | 2018-09-27 20:45 | DS ---
DISCHARGE DIAGNOSES: 1. Diabetic foot. 2. Severe peripheral arterial disease. 3. Type 2 diabetes. 4. Hypertension. 5. Hyperlipidemia. HOSPITAL COURSE: This is a 53-year-old female, well known to me, with history of type 2 diabetes, on insulin, diabetes, hypertension, and hyperlipidemia, noncompliant with diet, medication, and followup. She came in because of right big toe ulcer, found to have ischemia, and peripheral arterial disease was diagnosed, and she underwent angioplasty. While we were arranging the patient for home IV antibiotics, she signed out against medical advice. WBC 6.9, hemoglobin 10.6, hematocrit 31.5, and platelets 296. Coagulation profile was benign. Chemistries show sodium 138, potassium 3.9, chloride 107, bicarbonate 23, BUN 20, and creatinine 1. CONDITION UPON DISCHARGE: Guarded. Maurice Ly MD
== END 2018-09-26 19:35 | disposition left against medical advice (07) | DRG 272 ==
LOC: C.ER 00:12 → C.5S 05:27
PROVIDERS: ADMIT Internal Medicine; ATTEND Internal Medicine
PROC: 04CK3ZZ Extirpation of Matter from Right Femoral Artery, Percutaneous Approach (ICD-10-PCS; principal; 2018-09-25)
PROC: 047K3D1 Dilation of Right Femoral Artery with Intraluminal Device, using Drug-Coated Balloon, Percutaneous Approach (ICD-10-PCS; 2018-09-25)
DX: E11.52 Type 2 diabetes mellitus with diabetic peripheral angiopathy with gangrene (principal); E11.65 Type 2 diabetes mellitus with hyperglycemia; E78.5 Hyperlipidemia, unspecified; I10 Essential (primary) hypertension; I25.10 Atherosclerotic heart disease of native coronary artery without angina pectoris; Z79.4 Long term (current) use of insulin; Z86.73 Personal history of transient ischemic attack (TIA), and cerebral infarction without residual deficits; Z91.19 Patient's noncompliance with other medical treatment and regimen; E11.40 Type 2 diabetes mellitus with diabetic neuropathy, unspecified; L97.519 Non-pressure chronic ulcer of other part of right foot with unspecified severity; E11.621 Type 2 diabetes mellitus with foot ulcer

== ENCOUNTER 2018-09-28 12:04 | Day surgery (SDC) | payer MEDICARE, OTHER ==
--- NOTE | 2018-09-28 15:01 | CP.SDSHP ---
Same Day Surgery H & P - History Proposed Procedure: PICC placement Pre-Op Diagnosis: Infection - Allergies Allergies: Allergies No Known Allergies Allergy (Verified 09/21/18 00:23) Short Stay Discharge - Short Stay Discharge Admitting Diagnosis/Reason for Visit: OTHER ACUTE OSTEOMYELITIS, MULTIPLE SITES Disposition: HOME/ ROUTINE
--- NOTE | 2018-09-28 15:03 | PCM.SURG1 ---
Surgeon's Initial Post Op Note - Surgeon's Notes Surgeon: Rhoda Joint Cutter Machine: None Type of Anesthesia: Local Pre-Operative Diagnosis: Infection Operative Findings: Patent right brachial vein Post-Operative Diagnosis: Infection Operation Performed: Right brachial vein 5F SL 35cm PICC placed with ip RA/SVC junction Specimen/Specimens Removed: None Estimated Blood Loss: EBL {In ML}: 1 Date of Surgery/Procedure: 09/28/18 Time of Surgery/Procedure: 14:50
--- NOTE | 2018-09-28 15:19 | US ---
Procedure: Ultrasound and fluoroscopically placed Right upper extremity PICC. Clinical indication: Long-term IV antibiotics. Technique: The relative risks and indications of the procedure were explained to the patient and written informed consent obtained. The patient was placed supine on the angiographic table and the right arm prepped and draped in the usual sterile fashion. A tourniquet was applied to the right axilla. 1% lidocaine was used to anesthetize the skin and soft tissues at the puncture site above the elbow. The right brachial vein was punctured under direct ultrasound guidance with a micropuncture set. A permanent image was stored. A 0.018 guidewire was advanced centrally and used to measure the length to the SVC/RA junction. A 5 Turk[place] single-lumen PICC, size 35 cm, was advanced to the SVC/RA junction under fluoroscopic guidance. The catheter was flushed and secured. The patient tolerated the procedure well. Postprocedure chest image was obtained to ensure location of the catheter tip at the SVC right atrial junction. Impression: Ultrasound and fluoroscopically placed right upper extremity PICC. PICC ready for use.
[2018-09-29] MEDS ORDERED: Aspirin-Dipyridamole 200-25 mg ER Cap PO SCH (10:00)
== END 2018-09-28 17:32 | disposition home or self-care (01) ==
LOC: C.SPRAD 12:04
PROVIDERS: ATTEND Internal Medicine
DX: M86.19 Other acute osteomyelitis, multiple sites (principal)

== ENCOUNTER 2018-10-01 23:03 | Observation (INO) | payer MEDICARE, OTHER ==
[2018-10-01 23:03] VITALS: BMI 43.9
--- NOTE | 2018-10-01 23:38 | C.PDOC ---
History Of Present Illness Patient presents to the ER with a complaint of erythema over the right great toe. Patient has a Hx of osteomyelitis and gangrene, she was recently admitted and seen by podiatry but returns now with great toe pain and erythema. Denies fever, chills, nausea, or vomiting. Time Seen by Provider: 10/01/18 23:38 Chief Complaint (Nursing): Abnormal Skin Integrity History Per: Patient History/Exam Limitations: no limitations Onset/Duration Of Symptoms: Days Current Symptoms Are (Timing): Still Present Location Of Injury: Right: Foot (Toe) Quality Of Symptoms: Painful, Other (Erythema) Recent travel outside of the [place]: No Past Medical History Reviewed: Historical Data, Nursing Documentation, Vital Signs Vital Signs: Last Vital Signs Temp 98.9 F 10/01/18 23:23 Pulse 91 H 10/01/18 23:23 Resp 18 10/01/18 23:23 BP 171/95 H 10/01/18 23:23 Pulse Ox 98 10/01/18 23:23 - Medical History PMH: CAD, CVA, Diabetes (insulin dependent DM), HTN, Hypercholesterolemia, Kidney Stones Denies: Chronic Kidney Disease Surgical History: Coronary Stent (5 stents) - [facility] Procedures DILATE R FEM ART W INTRALUM DEV, DRUG BLLN, PERC (09/21/18) DILATION OF R FEM ART WITH INTRALUM DEV, PERC APPROACH (03/06/18) EXTIRPATION OF MATTER FROM R FEM ART, PERC APPROACH (09/21/18) Family History: States: Unknown Family Hx - Social History Hx Tobacco Use: No Hx Alcohol Use: No Hx Substance Use: No - Immunization History Hx Tetanus Toxoid Vaccination: No Hx Influenza Vaccination: No Hx Pneumococcal Vaccination: No Review Of Systems Constitutional: Negative for: Fever, Chills Gastrointestinal: Negative for: Nausea, Vomiting Musculoskeletal: Positive for: Foot Pain (Right toe) Skin: Positive for: Other (Right toe erythema) Neurological: Negative for: Weakness, Numbness Physical Exam - Physical Exam Appears: Non-toxic Skin: Warm, Dry Head: Normacephalic Oral Mucosa: Moist Chest: Symmetrical, No Tenderness Cardiovascular: Rhythm Regular Respiratory: No Rales, No Rhonchi, No Wheezing Gastrointestinal/Abdominal: Soft, No Tenderness Extremity: Capillary Refill (<2 seconds), Other (Right great toe erythematous and mildly tender, right arm PICC line) Pulses: Left Dorsalis Pedis: Normal, Right Dorsalis Pedis: Normal Neurological/Psych: Oriented x3 Gait: Steady ED Course And Treatment O2 Sat by Pulse Oximetry: 98 (Room air) Pulse Ox Interpretation: Normal Progress Note: Blood work ordered. Disposition Discussed With : Maurice Ly Comment: accepted the pt on his service and took over the care at 11:56PM Doctor Will See Patient In The: Hospital Counseled Patient/Family Regarding: Studies Performed, Diagnosis - Disposition Disposition: HOSPITALIZED Disposition Time: 23:38 Condition: FAIR Forms: [facility] ([place]) - POA Present On Arrival: Poor Glycemic Control - Clinical Impression Clinical Impression: Skin lesion, Diabetes, Ischemic necrosis of toe, Cellulitis - Scribe Statement The provider has reviewed the documentation as recorded by the Scribe Greg Perera All medical record entries made by the Scribe were at my direction and personally dictated by me. I have reviewed the chart and agree that the record accurately reflects my personal performance of the history, physical exam, medical decision making, and the department course for this patient. I have also personally directed, reviewed, and agree with the discharge instructions and dis position. Decision To Admit - Pt Status Changed To: Hospital Disposition Of: Observation - . Bed Request Type: Regular Patient Diagnosis: Skin lesion, Diabetes, Ischemic necrosis of toe, Cellulitis
[2018-10-02 00:33] LABS: BASO % 0.5 % (0.0-2.0); EOS # 0.1 K/uL (0.0-0.7); EOS % 1.8 % (0.0-4.0); LYMPH # 2.3 K/uL (1.0-4.3); LYMPH % 28.4 % (20.0-40.0); MEAN CELL VOLUME 80.6 fL (81.0-99.0); MEAN CORPUSCULAR HEMOGLOBIN 27.2 pg (27.0-31.0); MEAN CORPUSCULAR HGB CONC 33.7 g/dL (33.0-37.0); MEAN PLATELET VOLUME 7.3 fL (7.2-11.7); MONO # 0.8 K/uL (0.0-0.8); MONO % 10.6 % (0.0-10.0); NEUT # 4.7 K/uL (1.8-7.0); NEUT % 58.7 % (50.0-75.0); RBC 3.09 Mil/uL (3.80-5.20); RED CELL DISTRIBUTION WIDTH 13.5 % (11.5-14.5)
[2018-10-02] MEDS ORDERED: Vancomycin 1 GM 1 GM/250 ML BAG IVPB ONE (00:34)
[2018-10-02] MEDS ORDERED: Sodium Chloride 0.9% 1,000 ML ONE (00:35)
[2018-10-02 00:39] LABS: HEMOGLOBIN 8.4 g/dL (11.0-16.0)
[2018-10-02] MEDS: Sodium Chloride 0.9% 1,000 ML IV SCH ×2 (00:43→09:24)
[2018-10-02 00:45] LABS: BLOOD UREA NITROGEN 14 mg/dL (7-17); GFR NON-AFRICAN AMERICAN 58
[2018-10-02 00:51] VITALS: RESP 20
[2018-10-02 01:03] LABS: VENOUS BLOOD GAS BASE EXCESS 4.7 mmol/L (0.0-2.0); VENOUS BLOOD GAS PCO2 51 mmHg (40-60); VENOUS BLOOD GAS PO2 35 mm/Hg (30-55); VENOUS BLOOD PH 7.39 (7.32-7.43)
[2018-10-02] MEDS: (Novolin R) Insulin Human Regular 100 units/ml vial SC SCH ×3 (08:30→17:17)
[2018-10-02] MEDS ORDERED: Aspirin-Dipyridamole 200-25 mg ER Cap PO SCH (10:00)
[2018-10-02] MEDS ORDERED: Enoxaparin 30 mg Syringe SC SCH (10:00)
[2018-10-02] MEDS ORDERED: Insulin Detemir 100 units/ml Vial (Levemir) SC SCH (10:00)
[2018-10-02] MEDS ORDERED: Metoprolol Succinate 50 mg XL Tab PO SCH ×2 (10:00→10:30)
--- NOTE | 2018-10-02 12:45 | CP.PCM.CON ---
History of Present Illness - History of Present Illness History of Present Illness: 53F with PMHx of CAD, PVD, HTN, HLD, DM2 admitted with right hallux and 2nd digit discoloration. Found to have early OM right hallux and severe PVD Had vascular eval with stent placement ID consulted for antibiotics recently signed out Now back for IV rx- cont Vanco Invanz as out pt PMHx: CAD, PVD, HTN, HLD, DM2 PSH: hysterectomy, right foot surgery, stents ALL: NKDA MEDS: see JAN list FH: father- CAD, DM, mother- DM, colon cancer SH: denies smoking drinking or illicit drug use Review of Systems - Review of Systems All systems: reviewed and no additional remarkable complaints except - Constitutional Constitutional: absent: As Per HPI, Anorexia, Chills, Daytime Sleepiness, Excessive Sweating, Fatigue, Fever, Frequent Falls, Headache, Increased Appetite, Lethargy, Malaise, Night Sweats, Snoring, Sleep Apnea, Weight Gain, Weight Loss, Weakness, Other - EENT Eyes: absent: As Per HPI, Blind Spots, Blurred Vision, Change in Vision, Decreased Night Vision, Diplopia, Discharge, Dry Eye, Exophthalmos, Floaters, Irritation, Itchy Eyes, Loss of Peripheral Vision, Pain, Photophobia, Requires Corrective Lenses, Sees Flashes, Spots in Vision, Tunnel Vision, Other Visual Di sturbances, Loss of Vision, Other Ears: absent: As Per HPI, Decreased Hearing, Ear Discharge, Ear Pain, Tinnitus, Abnormal Hearing, Disequilibrium, Dizziness, Other Nose/Mouth/Throat: absent: As Per HPI, Epistaxis, Nasal Congestion, Nasal Discharge, Nasal Obstruction, Nasal Trauma, Nose Pain, Post Nasal Drip, Sinus Pain, Sinus Pressure, Bleeding Gums, Change in Voice, Dental Pain, Dry Mouth, Dysphagia, Halitosis, Hoarsness, Lip Swelling, Mouth Lesions, Mouth Pain, Odynophagia, Sore Throat, Throat Swelling, Tongue Swelling, Facial Pain, Neck Pain, Neck Mass, Other - Cardiovascular Cardiovascular: As Per HPI - Gastrointestinal Gastrointestinal: absent: As Per HPI, Abdominal Pain, Belching, Bloating, Change in Bowel Habits, Change in Stool Character, Coffee Ground Emesis, Constipation, Cramping, Diarrhea, Dyspepsia, Dysphagia, Early Satiety, Excessive Flatus, Fecal Incontinence, Heartburn, Hematemesis, Hematochezia, Loose Stools, Melena, Nausea, Odynophagia, Temesmus, Vomiting, Other - Genitourinary Genitourinary: absent: As Per HPI, Change in Urinary Stream, Difficulty Urinating, Dysuria, Flank Pain, Hematuria, Pyuria, Nocturia, Urinary Incontinence, Urinary Frequency, Urinary Hesitance, Urinary Urgency, Voiding Miguel q/Small Amts, Freq UTI, Hx Renal/Bladder Calculi, Hx /Renal Surgery, Bladder Distension, Other - Reproductive: Female Reproductive:Female: absent: As Per HPI, Amenorrhea, Amenorrhea/ Control, Currently Menstual, Cycle <21 Days, Cycle >35 Days, Cycle Variable, Menses 1-7 Days, Menses >/= 8 Days, Menses Variable, Cycle > 4 Weeks Between, No Menses for 6 Months, Heavy Menses, Light Menses, Normal Menses, Spotting Between Cycles, S/P Hysterectomy, Menopausal, Post Menopausal, Premenarche, Abnormal Vaginal Bleeding, Dysmenorrhea, Dyspareunia, Genital Lesions, Genital Pruritis, Pelvic Pain, Prolapse Symptoms, Sexual Dysfunction, Vaginal Discharge, Vaginal Dryness, Vaginal Odor, Vaginal Pruritis, Other - Menstruation Menstruation: absent: As Per HPI, Amenorrhea, Amenorrhea/ Control, Currently Menstual, Cycle <21 Days, Cycle >35 Days, Cycle Variable, Menses 1-7 Days, Menses >/= 8 Days, Menses Variable, Cycle > 4 Weeks Between, No Menses for 6 Months, Heavy Menses, Light Menses, Normal Menses, Spotting Between Cycles, S/P Hysterectomy, Menopausal, Post Menopausal, Premenarche, Abnormal Vaginal Bleeding, Dysmenorrhea, Other - Musculoskeletal Musculoskeletal: As Per HPI - Integumentary Integumentary: As Per HPI - Neurological Neurological: absent: As Per HPI, Abnormal Gait, Abnormal Hearing, Abnormal Movements, Abnormal Speech, Behavioral Changes, Burning Sensations, Confusion, Convulsions, Disequilibrium, Dizziness, Numbness, Focal Weakness, Frequent Falls, Headaches, Lack of Coordination, Loss of Vision, Memory Loss, Paresthesias, Radicular Pain, Restless Legs, Sensory Deficit, Syncope, Tingling, Tremor, Vertigo, Weakness, Other Visual Disturbances, Other - Psychiatric Psychiatric: absent: As Per HPI, Abnormal Sleep Pattern, Anhedonia, Anxiety, Auditory Hallucinations, Behavioral Changes, Change in Appetite, Change in Libido, Confusion, Depression, Difficulty Concentrating, Hallucinations, Homicidal Ideation, Hopelessness, Irritability, Memory Loss, Mood Swings, Panic Attacks, Paranoia, Suicidal Ideation, Visual Hallucinations, Tactile Hallucinations, Other - Endocrine Endocrine: absent: As Per HPI, Change in Body Appearance, Change in Libido, Cold Intolorance, Deepening of Voice, Excessive Sweating, Fatigue, Flushing, Heat Intolorance, Increase in Ring/Shoe/Hat Size, Palpitations, Polydipsia, Polyphagia, Polyuria, Other - Hematologic/Lymphatic Hematologic: absent: As Per HPI, Easy Bleeding, Easy Bruising, Lymphadenopathy, Other Past Patient History - Infectious Disease Hx of Infectious Diseases: None - Past Medical History & Family History Past Medical History?: Yes - Past Social History Smoking Status: Never Smoked - CARDIAC Hx Hypercholesterolemia: Yes Hx Hypertension: Yes - PULMONARY Hx Respiratory Disorders: No - NEUROLOGICAL HX Cerebrovascular Accident: Yes - HEENT Hx HEENT Problems: No - RENAL Hx Chronic Kidney Disease: No Hx Kidney Stones: Yes - ENDOCRINE/METABOLIC Hx Diabetes Mellitus Type 2: Yes - HEMATOLOGICAL/ONCOLOGICAL Hx Blood Disorders: No - INTEGUMENTARY Hx Dermatological Problems: No - MUSCULOSKELETAL/RHEUMATOLOGICAL Hx Falls: No - GASTROINTESTINAL Hx Gastrointestinal Disorders: No - GENITOURINARY/GYNECOLOGICAL Hx Genitourinary Disorders: No - PSYCHIATRIC Hx Substance Use: No - SURGICAL HISTORY Hx Coronary Stent: Yes (5 stents) - ANESTHESIA Hx Anesthesia: Yes Hx Anesthesia Reactions: No Meds Allergies/Adverse Reactions: Allergies Allergy/AdvReac Type Severity Reaction Status Date / Time No Known Allergies Allergy Verified 10/01/18 23:29 - Medications Medications: Current Medications Clopidogrel Bisulfate (Plavix) 75 mg PO DAILY [facility] Last Admin: 10/02/18 10:06 Dose: 75 mg Dipyridamole/Aspirin (Aggrenox 25-200 Mg) 1 ea PO DAILY [facility] Last Admin: 10/02/18 10:07 Dose: 1 ea Enoxaparin Sodium (Lovenox) 40 mg SC DAILY [facility] Last Admin: 10/02/18 10:07 Dose: Not Given Gabapentin (Neurontin) 100 mg PO BID [facility] Last Admin: 10/02/18 10:06 Dose: 100 mg Hydrochlorothiazide (Microzide) 12.5 mg PO DAILY [facility] Last Admin: 10/02/18 12:07 Dose: 12.5 mg Sodium Chloride (Sodium Chloride 0.9%) 1,000 mls @ 100 mls/hr IV .Q10H [facility] Last Admin: 10/02/18 09:24 Dose: Not Given Vancomycin HCl 1 gm/ Sodium (Chloride) 250 mls @ 166.7 mls/hr IVPB Q24H [facility]; Protocol Influenza Virus Vaccine (Fluzone Quad 7636-0929) 60 mcg IM .ONCE ONE Stop: 10/03/18 10:01 Insulin Detemir (Levemir) 25 unit SC [facility] Last Admin: 10/02/18 10:06 Dose: 25 units Insulin Human Regular (Novolin R) 0 unit SC [facility]; Protocol Last Admin: 10/02/18 12:07 Dose: 4 units Metoclopramide HCl (Reglan) 5 mg PO DAILY [facility] Last Admin: 10/02/18 10:07 Dose: 5 mg Metoprolol Succinate (Toprol Xl) 50 mg PO DAILY [facility] Last Admin: 10/02/18 10:24 Dose: 50 mg Pneumococcal Polyvalent Vaccine (Pneumovax 23 Vaccine) 0.5 ml IM .ONCE ONE Stop: 10/03/18 10:01 Rosuvastatin Calcium (Crestor) 20 mg PO [facility] Physical Exam - Constitutional Appears: Chronically Ill - Head Exam Head Exam: ATRAUMATIC - Eye Exam Eye Exam: absent: Scleral icterus - ENT Exam ENT Exam: Mucous Membranes Dry - Neck Exam Neck exam: Negative for: Lymphadenopathy - Respiratory Exam Respiratory Exam: Decreased Breath Sounds - Cardiovascular Exam Cardiovascular Exam: REGULAR RHYTHM - GI/Abdominal Exam GI & Abdominal Exam: Diminished Bowel Sounds - Rectal Exam Rectal Exam: Deferred - Exam Exam: NORMAL INSPECTION - Extremities Exam Extremities exam: Positive for: pedal edema, tenderness. Negative for: calf tenderness, normal inspection, pedal pulses present - Back Exam Back exam: absent: CVA tenderness (L), CVA tenderness (R) - Neurological Exam Neurological exam: Alert, CN II-XII Intact, Oriented x3, Reflexes Normal - Psychiatric Exam Psychiatric exam: Depressed Results - Vital Signs Recent Vital Signs: Last Vital Signs Temp 98.5 F 10/02/18 08:52 Pulse 88 10/02/18 08:52 Resp 20 10/02/18 08:52 BP 175/97 H 10/02/18 08:52 Pulse Ox 96 10/02/18 08:52 - Labs Result Diagrams: 10/02/18 00:18 10/02/18 00:18 Labs: Laboratory Results - last 24 hr 10/02/18 10/02/18 10/02/18 00:18 00:18 00:18 WBC 8.0 RBC 3.09 L Hgb 8.4 L D Hct 24.9 L MCV 80.6 L MCH 27.2 MCHC 33.7 RDW 13.5 Plt Count 304 MPV 7.3 Neut % (Auto) 58.7 Lymph % (Auto) 28.4 [place] % (Auto) 10.6 H Eos % (Auto) 1.8 Baso % (Auto) 0.5 Neut # (Auto) 4.7 Lymph # (Auto) 2.3 [place] # (Auto) 0.8 Eos # (Auto) 0.1 Baso # (Auto) 0.0 pO2 VBG pH VBG pCO2 VBG HCO3 VBG Total CO2 VBG O2 Sat (Calc) VBG Base Excess VBG Potassium Glucose Lactate Liter Flow FiO2 Sodium 139 Potassium 3.6 Chloride 104 Carbon Dioxide 28 Anion Gap 11 BUN 14 Creatinine 1.0 Est GFR ( Amer) > 60 Est GFR (Non-Af Amer) 58 POC Glucose (mg/dL) 290 H Random Glucose 272 H Calcium 9.0 Venous Blood Potassium 10/02/18 10/02/18 10/02/18 00:55 07:21 11:18 WBC RBC Hgb Hct MCV MCH MCHC RDW Plt Count MPV Neut % (Auto) Lymph % (Auto) [place] % (Auto) Eos % (Auto) Baso % (Auto) Neut # (Auto) Lymph # (Auto) [place] # (Auto) Eos # (Auto) Baso # (Auto) pO2 35 VBG pH 7.39 VBG pCO2 51 VBG HCO3 27.8 VBG Total CO2 32.5 H VBG O2 Sat (Calc) 69.6 H VBG Base Excess 4.7 H VBG Potassium 3.5 L Glucose 277 H Lactate 1.1 Liter Flow 0 FiO2 21.0 Sodium 141.0 Potassium Chloride 108.0 H Carbon Dioxide Anion Gap BUN Creatinine Est GFR ( Amer) Est GFR (Non-Af Amer) POC Glucose (mg/dL) 233 H 314 H Random Glucose Calcium Venous Blood Potassium 3.5 L Assessment & Plan (1) Cellulitis Status: Acute (2) Ischemic necrosis of toe Status: Acute Priority: High (3) Skin lesion Status: Acute (4) Diabetes Status: Chronic Priority: Medium (5) Gangrene of toe of right foot Status: Acute - Assessment and Plan (Free Text) Assessment: 53F with PMHx of CAD, PVD, HTN, HLD, DM2 admitted with right hallux and 2nd digit discoloration. Found to have early OM right hallux and severe PVD Had vascular eval with stent placement ID consulted for antibiotics Currently on Zosyn No deep bone cultures obtainable cont iv rx for OM follow up Dr Montoya
--- NOTE | 2018-10-02 12:55 | CP.PCM.CON ---
History of Present Illness - History of Present Illness History of Present Illness: Podiatry Consult Note for Dr. Montoya 53F seen and evaluated at bedside for right hallux ulceration with underlying OM. Patient was previously discharged from [facility] on 09/26 for the same foot infection. She returned to [facility] on 09/28 for a PICC line placement but was then told that she would not be able to receive at home IV abx because she did not spend a fully 24 hours in the hospital when receiving her PICC line so patient is in house for 24 hours and will then be discharged home to receive IV abx. She denies any new complaints to her foot since previous discharge. Denies any recent N/V/F/C/CP/SOB/D Review of Systems - Review of Systems All systems: reviewed and no additional remarkable complaints except Review of Systems: as per HPI Past Patient History - Infectious Disease Hx of Infectious Diseases: None - Past Medical History & Family History Past Medical History?: Yes - Past Social History Smoking Status: Never Smoked - CARDIAC Hx Hypercholesterolemia: Yes Hx Hypertension: Yes - PULMONARY Hx Respiratory Disorders: No - NEUROLOGICAL HX Cerebrovascular Accident: Yes - HEENT Hx HEENT Problems: No - RENAL Hx Chronic Kidney Disease: No Hx Kidney Stones: Yes - ENDOCRINE/METABOLIC Hx Diabetes Mellitus Type 2: Yes - HEMATOLOGICAL/ONCOLOGICAL Hx Blood Disorders: No - INTEGUMENTARY Hx Dermatological Problems: No - MUSCULOSKELETAL/RHEUMATOLOGICAL Hx Falls: No - GASTROINTESTINAL Hx Gastrointestinal Disorders: No - GENITOURINARY/GYNECOLOGICAL Hx Genitourinary Disorders: No - PSYCHIATRIC Hx Substance Use: No - SURGICAL HISTORY Hx Coronary Stent: Yes (5 stents) - ANESTHESIA Hx Anesthesia: Yes Hx Anesthesia Reactions: No Meds Allergies/Adverse Reactions: Allergies Allergy/AdvReac Type Severity Reaction Status Date / Time No Known Allergies Allergy Verified 10/01/18 23:29 - Medications Medications: Current Medications Clopidogrel Bisulfate (Plavix) 75 mg PO DAILY [facility] Last Admin: 10/02/18 10:06 Dose: 75 mg Dipyridamole/Aspirin (Aggrenox 25-200 Mg) 1 ea PO DAILY [facility] Last Admin: 10/02/18 10:07 Dose: 1 ea Enoxaparin Sodium (Lovenox) 40 mg SC DAILY [facility] Last Admin: 10/02/18 10:07 Dose: Not Given Gabapentin (Neurontin) 100 mg PO BID [facility] Last Admin: 10/02/18 10:06 Dose: 100 mg Hydrochlorothiazide (Microzide) 12.5 mg PO DAILY [facility] Last Admin: 10/02/18 12:07 Dose: 12.5 mg Sodium Chloride (Sodium Chloride 0.9%) 1,000 mls @ 100 mls/hr IV .Q10H [facility] Last Admin: 10/02/18 09:24 Dose: Not Given Vancomycin HCl 1 gm/ Sodium (Chloride) 250 mls @ 166.7 mls/hr IVPB Q24H [facility]; Protocol Influenza Virus Vaccine (Fluzone Quad [id number]) 60 mcg IM .ONCE ONE Stop: 10/03/18 10:01 Insulin Detemir (Levemir) 25 unit SC [facility] Last Admin: 10/02/18 10:06 Dose: 25 units Insulin Human Regular (Novolin R) 0 unit SC [facility]; Protocol Last Admin: 10/02/18 12:07 Dose: 4 units Metoclopramide HCl (Reglan) 5 mg PO DAILY [facility] Last Admin: 10/02/18 10:07 Dose: 5 mg Metoprolol Succinate (Toprol Xl) 50 mg PO DAILY [facility] Last Admin: 10/02/18 10:24 Dose: 50 mg Pneumococcal Polyvalent Vaccine (Pneumovax 23 Vaccine) 0.5 ml IM .ONCE ONE Stop: 10/03/18 10:01 Rosuvastatin Calcium (Crestor) 20 mg PO [facility] Physical Exam - Constitutional Appears: Well, Non-toxic, No Acute Distress - Extremities Exam Additional comments: RLE focused exam: VASC: DP/PT pulses faintly palpable 1/4 b/l. Skin temperature warm to warm from proximal to distal WNL. CFT < 3 seconds to all digits. No edema noted Neuro: Epicritic and protective sensation grossly intact b/l Derm: Right hallux noted to be xerotic with callus noted to distal tip. Callus overlies previous ulceration site. No evidence of ulceration at this time. Otherwise no open lesions, wounds, maceration, xerosis, abnormal pigmentation or abnormal growths noted MSK: Minimal POP to distal hallux. ROM limited at R first MTPJ. No other gross deformities appreciated - Neurological Exam Neurological exam: Alert, Oriented x3 - Psychiatric Exam Psychiatric exam: Normal Affect, Normal Mood Results - Vital Signs Recent Vital Signs: Last Vital Signs Temp 98.5 F 10/02/18 08:52 Pulse 88 11/13/18 08:52 Resp 20 10/02/18 08:52 BP 175/97 H 10/02/18 08:52 Pulse Ox 96 10/02/18 08:52 - Labs Result Diagrams: 10/02/18 00:18 10/02/18 00:18 Labs: Laboratory Results - last 24 hr 10/02/18 10/02/18 10/02/18 00:18 00:18 00:18 WBC 8.0 RBC 3.09 L Hgb 8.4 L D Hct 24.9 L MCV 80.6 L MCH 27.2 MCHC 33.7 RDW 13.5 Plt Count 304 MPV 7.3 Neut % (Auto) 58.7 Lymph % (Auto) 28.4 [place] % (Auto) 10.6 H Eos % (Auto) 1.8 Baso % (Auto) 0.5 Neut # (Auto) 4.7 Lymph # (Auto) 2.3 [place] # (Auto) 0.8 Eos # (Auto) 0.1 Baso # (Auto) 0.0 pO2 VBG pH VBG pCO2 VBG HCO3 VBG Total CO2 VBG O2 Sat (Calc) VBG Base Excess VBG Potassium Glucose Lactate Liter Flow FiO2 Sodium 139 Potassium 3.6 Chloride 104 Carbon Dioxide 28 Anion Gap 11 BUN 14 Creatinine 1.0 Est GFR ( Amer) > 60 Est GFR (Non-Af Amer) 58 POC Glucose (mg/dL) 290 H Random Glucose 272 H Calcium 9.0 Venous Blood Potassium 10/02/18 10/02/18 10/02/18 00:55 07:21 11:18 WBC RBC Hgb Hct MCV MCH MCHC RDW Plt Count MPV Neut % (Auto) Lymph % (Auto) [place] % (Auto) Eos % (Auto) Baso % (Auto) Neut # (Auto) Lymph # (Auto) [place] # (Auto) Eos # (Auto) Baso # (Auto) pO2 35 VBG pH 7.39 VBG pCO2 51 VBG HCO3 27.8 VBG Total CO2 32.5 H VBG O2 Sat (Calc) 69.6 H VBG Base Excess 4.7 H VBG Potassium 3.5 L Glucose 277 H Lactate 1.1 Liter Flow 0 FiO2 21.0 Sodium 141.0 Potassium Chloride 108.0 H Carbon Dioxide Anion Gap BUN Creatinine Est GFR ( Amer) Est GFR (Non-Af Amer) POC Glucose (mg/dL) 233 H 314 H Random Glucose Calcium Venous Blood Potassium 3.5 L Assessment & Plan - Assessment and Plan (Free Text) Assessment: 53F seen and evaluated at bedside for right hallux ulceration with underlying OM Plan: Patient seen and evaluated Plan discussed with Dr. Montoya No plan for surgical intervention at this time Afebrile, absent leukocytosis Right hallux dressed with DSD Patient to receive at home IV abx per ID upon discharge Podiatry will continue to follow at this time - Date & Time Date: 10/02/18 Time: 13:00
[2018-10-02 17:09] VITALS: BP 181/96; PULSE 84; TEMP 98.1; O2SAT 98
--- NOTE | 2018-10-02 23:00 | CP.PCM.HP ---
Past Patient History - Infectious Disease Hx of Infectious Diseases: None - Past Medical History & Family History Past Medical History?: Yes - Past Social History Smoking Status: Never Smoked - CARDIAC Hx Hypercholesterolemia: Yes Hx Hypertension: Yes - PULMONARY Hx Respiratory Disorders: No - NEUROLOGICAL HX Cerebrovascular Accident: Yes - HEENT Hx HEENT Problems: No - RENAL Hx Chronic Kidney Disease: No Hx Kidney Stones: Yes - ENDOCRINE/METABOLIC Hx Diabetes Mellitus Type 2: Yes - HEMATOLOGICAL/ONCOLOGICAL Hx Blood Disorders: No - INTEGUMENTARY Hx Dermatological Problems: No - MUSCULOSKELETAL/RHEUMATOLOGICAL Hx Falls: No - GASTROINTESTINAL Hx Gastrointestinal Disorders: No - GENITOURINARY/GYNECOLOGICAL Hx Genitourinary Disorders: No - PSYCHIATRIC Hx Substance Use: No - SURGICAL HISTORY Hx Coronary Stent: Yes (5 stents) - ANESTHESIA Hx Anesthesia: Yes Hx Anesthesia Reactions: No Meds Home Medications: Home Medication List Medication Instructions Recorded Confirmed Type Ertapenem Sodium [Invanz] 1 gm IV DAILY #42 vial.port 10/02/18 Rx Vancomycin 1 GM [Vancomycin 1GM in 1 gm IVPB DAILY #42 bag 10/02/18 Rx Normal Saline Addvantage] Allergies/Adverse Reactions: Allergies Allergy/AdvReac Type Severity Reaction Status Date / Time No Known Allergies Allergy Verified 10/01/18 23:29 Results - Vital Signs Recent Vital Signs: Last Vital Signs Temp 98.1 F 10/02/18 16:00 Pulse 84 10/02/18 16:00 Resp 20 10/02/18 16:00 BP 181/96 H 10/02/18 16:00 Pulse Ox 98 10/02/18 16:00 - Labs Result Diagrams: 10/02/18 00:18 10/02/18 00:18 Labs: Laboratory Results - last 24 hr 10/02/18 10/02/18 10/02/18 00:18 00:18 00:18 WBC 8.0 RBC 3.09 L Hgb 8.4 L D Hct 24.9 L MCV 80.6 L MCH 27.2 MCHC 33.7 RDW 13.5 Plt Count 304 MPV 7.3 Neut % (Auto) 58.7 Lymph % (Auto) 28.4 [place] % (Auto) 10.6 H Eos % (Auto) 1.8 Baso % (Auto) 0.5 Neut # (Auto) 4.7 Lymph # (Auto) 2.3 [place] # (Auto) 0.8 Eos # (Auto) 0.1 Baso # (Auto) 0.0 pO2 VBG pH VBG pCO2 VBG HCO3 VBG Total CO2 VBG O2 Sat (Calc) VBG Base Excess VBG Potassium Glucose Lactate Liter Flow FiO2 Sodium 139 Potassium 3.6 Chloride 104 Carbon Dioxide 28 Anion Gap 11 BUN 14 Creatinine 1.0 Est GFR ( Amer) > 60 Est GFR (Non-Af Amer) 58 POC Glucose (mg/dL) 290 H Random Glucose 272 H Calcium 9.0 Venous Blood Potassium 10/02/18 10/02/18 10/02/18 00:55 07:21 11:18 WBC RBC Hgb Hct MCV MCH MCHC RDW Plt Count MPV Neut % (Auto) Lymph % (Auto) [place] % (Auto) Eos % (Auto) Baso % (Auto) Neut # (Auto) Lymph # (Auto) [place] # (Auto) Eos # (Auto) Baso # (Auto) pO2 35 VBG pH 7.39 VBG pCO2 51 VBG HCO3 27.8 VBG Total CO2 32.5 H VBG O2 Sat (Calc) 69.6 H VBG Base Excess 4.7 H VBG Potassium 3.5 L Glucose 277 H Lactate 1.1 Liter Flow 0 FiO2 21.0 Sodium 141.0 Potassium Chloride 108.0 H Carbon Dioxide Anion Gap BUN Creatinine Est GFR ( Amer) Est GFR (Non-Af Amer) POC Glucose (mg/dL) 233 H 314 H Random Glucose Calcium Venous Blood Potassium 3.5 L 10/02/18 16:08 WBC RBC Hgb Hct MCV MCH MCHC RDW Plt Count MPV Neut % (Auto) Lymph % (Auto) [place] % (Auto) Eos % (Auto) Baso % (Auto) Neut # (Auto) Lymph # (Auto) [place] # (Auto) Eos # (Auto) Baso # (Auto) pO2 VBG pH VBG pCO2 VBG HCO3 VBG Total CO2 VBG O2 Sat (Calc) VBG Base Excess VBG Potassium Glucose Lactate Liter Flow FiO2 Sodium Potassium Chloride Carbon Dioxide Anion Gap BUN Creatinine Est GFR ( Amer) Est GFR (Non-Af Amer) POC Glucose (mg/dL) 259 H Random Glucose Calcium Venous Blood Potassium
--- NOTE | 2018-10-03 05:04 | HP ---
CHIEF COMPLAINT: Right foot infection. HISTORY OF PRESENT ILLNESS: This is a 53-year-old female with history of obesity, diabetes, hypertension, hyperlipidemia, coronary artery disease, prior multiple strokes, who is noncompliant with diet, medication, and followup. She came in because of right foot pain. The patient underwent angioplasty last week, and the patient signed out against medical advice. Her home IV antibiotics could not be arranged. Then, the patient was brought in because she was not taking any antibiotic, and her wound is persistent, and the patient is feeling pain in the wound. No fever, no chills. She denies any nausea or vomiting. She has been trying to keep her right foot wound clean. She denies any chest pain or shortness of breath. She denies any tingling, numbness, or paresthesias to her arms. She had numbness in her feet. She has polyuria, polydipsia, polyphagia, although she claims she is taking insulin. No rash. ALLERGIES: UNKNOWN ALLERGIES. CURRENT MEDICATIONS: Levemir, Neurontin, Plavix, Lipitor, Aggrenox, Lopressor, hydrochlorothiazide, and Reglan. PAST MEDICAL HISTORY: CVA, type 2 diabetes, hypertension, and hyperlipidemia. SOCIAL HISTORY: Nonsmoker, non-EtOH user. PHYSICAL EXAMINATION: GENERAL: A middle-aged female, in no acute distress. VITAL SIGNS: Blood pressure 175/97, pulse 58, respiratory rate 20, and temperature 98.5. SKIN: The patient has a wound on the right foot with discharge. HEENT: Atraumatic, normocephalic. Negative pallor. Negative jaundice. Extraocular movements are intact. NECK: Supple. No JVD. No lymph node. No thyromegaly. No carotid bruit. CHEST: Chest wall, bilateral symmetrical expansion. LUNGS: Clear. No rale. No rhonchi. CARDIOVASCULAR SYSTEM: S1, S2, regular. No heave, no thrill. ABDOMEN: Soft, nontender. Bowel sounds are positive. RECTAL: No masses. No bleeding. EXTREMITIES: Right foot wound. CENTRAL NERVOUS SYSTEM: Awake, alert, oriented x3. ASSESSMENT: 1. Right foot wound. 2. Peripheral arterial disease, status post angioplasty. 3. Diabetes. 4. Hypertension. PLAN: Medical management. Antibiotics, home IV antibiotic. Discharge the patient. Maurice Ly MD [facility] # [id number]
[2018-10-03] MEDS ORDERED: Pneumococcal 23-Valent Vaccine IM ONE (10:00)
[2018-10-03] MEDS ORDERED: Influenza Vaccine 60 MCG/0.5 ML SYR (3 yr & up) IM ONE (10:00)
[2018-10-03] MEDS ORDERED: Metoprolol Succinate 50 mg XL Tab PO SCH (10:00)
== END 2018-10-02 18:05 | disposition home or self-care (01) ==
LOC: C.ER 23:03 → C.3T 23:54
PROVIDERS: ADMIT Internal Medicine; ATTEND Internal Medicine
DX: L03.031 Cellulitis of right toe (principal); E11.52 Type 2 diabetes mellitus with diabetic peripheral angiopathy with gangrene; I96 Gangrene, not elsewhere classified; Z79.4 Long term (current) use of insulin; E78.5 Hyperlipidemia, unspecified; I10 Essential (primary) hypertension; I25.10 Atherosclerotic heart disease of native coronary artery without angina pectoris; Z80.0 Family history of malignant neoplasm of digestive organs; Z82.49 Family history of ischemic heart disease and other diseases of the circulatory system; Z83.3 Family history of diabetes mellitus; Z86.73 Personal history of transient ischemic attack (TIA), and cerebral infarction without residual deficits; Z87.442 Personal history of urinary calculi; Z91.11 Patient's noncompliance with dietary regimen; Z90.710 Acquired absence of both cervix and uterus; Z95.5 Presence of coronary angioplasty implant and graft; R63.1 Polydipsia
CPT/HCPCS: 36415; 80048; 82803; 82948; 85025; 87040; 96365; 96366; 96367; 96372; 99284; G0378; J1335; J7030; J7050

== ENCOUNTER 2018-11-21 08:16 | Day surgery (SDC) | payer MEDICARE, OTHER ==
[2018-11-16 13:27] VITALS: BMI 41.6
[2018-11-21] MEDS ORDERED: Bupivacaine 0.25% 20 ML INJ IJ ONE (09:08)
[2018-11-21] MEDS ORDERED: ceFAZolin 1 gm in NS 0 GM/0 ML BAG IVPB ONE (09:08)
[2018-11-21] MEDS ORDERED: Lidocaine Hydrochloride 20 ML INJ ONE (09:08)
[2018-11-21] MEDS ORDERED: Propofol 10 mg/ml Inj (20 ML) ONE (09:14)
[2018-11-21] MEDS ORDERED: Midazolam 2 MG/2 ML VIAL ONE (09:14)
--- NOTE | 2018-11-21 10:00 | PCM.SURG1 ---
Surgeon's Initial Post Op Note - Surgeon's Notes Surgeon: Dr. Montoya, DPM Gallery Manager: Dr. Oanh Mobley PGY1 Type of Anesthesia: IV Sedation, Local Pre-Operative Diagnosis: R hallux nonhealing ulceration Operative Findings: See dicatation. I: Pre-op 10cc 1:1 mix of 1% lidocaine plain and 0.5% marcaine plain, Intra-op none. M: 3-0 Nylon Post-Operative Diagnosis: Same Operation Performed: Right hallux exostectomy Specimen/Specimens Removed: Bone and soft tissue from R hallux Estimated Blood Loss: EBL {In ML}: 1 Blood Products Given: N/A Drains Used: No Drains Post-Op Condition: Good Date of Surgery/Procedure: 11/21/18 Time of Surgery/Procedure: 10:00
[2018-11-21] MEDS ORDERED: Oxycodone/Acetaminophen 5/325 mg Tab PO PRN ×2 (10:01)
--- NOTE | 2018-11-21 10:52 | RAD ---
Date of service: 11/21/2018 PROCEDURE: Right Foot Radiographs. HISTORY: s/p R foot surgery COMPARISON: 09/21/2018 FINDINGS: BONES: Status post osteotomy distal aspect 1st distal phalanx. There has been some healing since prior examination of 09/21/2018. There is persistent lucent cleft, however no acute fracture elsewhere. No osseous erosion or periosteal reaction appreciated. JOINTS: Flexion deformity of 2nd through 5th digits. SOFT TISSUES: Soft tissue swelling about the 1st distal phalanx. No definite ulceration. OTHER FINDINGS: None. IMPRESSION: No plain radiographic evidence of osteomyelitis. Soft tissue swelling 1st digit. Evidence of prior osteotomy 1st distal phalanx.
[2018-11-21 12:28] VITALS: RESP 16
[2018-11-21 12:47] VITALS: BP 159/73; PULSE 100; TEMP 97.6; O2SAT 96
--- NOTE | 2018-11-23 10:18 | OP ---
PROCEDURE DATE: 11/21/2018 PREOPERATIVE DIAGNOSIS: Right hallux nonhealing ulceration. POSTOPERATIVE DIAGNOSIS: Right hallux nonhealing ulceration. PROCEDURE: Right hallux exostectomy. SURGEON: Surinder Chaudhary DPM MANAGER PLANNING: Oanh Wiley, PGY-1 ANESTHESIA: IV sedation with local. INDICATION: The patient is a 53-year-old female with the above diagnosis. The patient has exhausted all conservative treatment at this time and now requests surgical intervention. The patient signed the consent after careful explanation of risks, benefits, complications and alternatives for the surgical procedure. No guarantees were given nor implied. PREPARATION: The patient was brought into the operating room and placed on the operating room table in supine position. A time-out was performed for identification of the correct patient and procedure. The patient received a total of 10 mL of 1:1 mixture of 2% lidocaine plain and 0.5% Marcaine plain in a local block fashion to the right forefoot. Once local anesthesia was achieved, the right foot was then prepped and draped in a normal sterile manner. DESCRIPTION OF PROCEDURE: Right hallux exostectomy: Attention was directed to the right plantar hallux surface, where a 6 cm elliptical incision was made. Sharp dissection was carried down through the deep tissues, being careful to identify and retract all vital neurovascular structures. All bleeders were ligated and cauterized as necessary. At this time, using a reciprocating rasp, the bony exostosis was noted to the plantar hallux and rasped to smooth all sharp edges into regular borders. Next, the site was irrigated with copious amounts of saline and hydrogen peroxide. Next, utilizing 3-0 nylon, the skin and soft tissue were reapproximated. The right foot was then dressed with Xeroform, DSD and . POSTOPERATIVE CONDITION: The patient tolerated the anesthesia and procedure well and was escorted to the recovery room with all vital signs stable and neurovascular status intact to the right foot. POSTOPERATIVE PLAN: The patient is to remain weightbearing as tolerated in a surgical shoe, will follow up with Dr. Chaudhary in his office this week. Oanh Wiley, PGY Surinder Chaudhary DPM [facility] # [id number]
== END 2018-11-21 12:35 | disposition home or self-care (01) ==
LOC: C.SDS 08:16
PROVIDERS: ATTEND Podiatrist Foot Surgery
DX: L97.519 Non-pressure chronic ulcer of other part of right foot with unspecified severity (principal); M25.774 Osteophyte, right foot; M89.9 Disorder of bone, unspecified
CPT/HCPCS: 28124; 73630; 82948; 87070; 88305; J2001; J2250; J2405; J2704; J3010

== ENCOUNTER 2019-01-11 10:28 | Outpatient (CLI) | payer MEDICARE, OTHER | END 2019-01-11 10:29 | disposition home or self-care (01) | LOC: C.VASC 10:28 ==

== ENCOUNTER → 2019-01-25 | Day surgery (SDC) | payer MEDICARE, OTHER ==
[2019-01-21 13:15] VITALS: BMI 43.4
[~2019-01-25] MED LIST: Iodixanol 320 MG/ML 200 ML BOTTLE IV ONE; Lidocaine 2% MPF (5 ml) Inj ONE; Midazolam 2 MG/2 ML VIAL ONE; Oxycodone/Acetaminophen 5/325 mg Tab ONE; Oxycodone/Acetaminophen 5/325 mg Tab PO PRN
--- NOTE | 2019-01-25 16:25 | PCM.SURG1 ---
Surgeon's Initial Post Op Note - Surgeon's Notes Surgeon: alicja Policy Service Coordinator: 0 Type of Anesthesia: IV Sedation Anesthesia Administered By: [facility] Pre-Operative Diagnosis: in stent stenosis right leg Operative Findings: no significant stenosi above below or in stent. some tibial occlusive disease at trifurcation Post-Operative Diagnosis: same Operation Performed: aortofemoral angiogram via left groin Specimen/Specimens Removed: 0 Estimated Blood Loss: EBL {In ML}: 25 Blood Products Given: N/A Drains Used: No Drains Post-Op Condition: Good Date of Surgery/Procedure: 01/25/19 Time of Surgery/Procedure: 16:26
--- NOTE | 2019-01-26 15:46 | VAS ---
DATE: 01/25/2019 PREOPERATIVE DIAGNOSIS: Recurrent stenosis, right leg, in-stent. PROCEDURE CARRIED OUT: Aortofemoral angiogram via left groin. SURGEON: Phil Bocanegra Jr., MD TIME RECORDER: None. ANESTHESIOLOGIST: Mr. Ramirez. INDICATIONS: The patient is a 53-year-old woman with a history of previous interventions in the right leg who presents with noninvasive test which was suggestive of recurrent stenosis including a CT angiogram which suggested stenosis above and below previously placed stents. OPERATIVE FINDINGS: The aorta, renal arteries, common internal and external, common femoral, profunda femoris arteries were widely patent. Down to the level of below the trifurcation, images were obtained on both legs and they showed no evidence of significant stenosis. On the right leg, there were some degree of stenosis, but less than 50% at the tibioperoneal trunk, but below this, vessel was widely opened down to the foot. No selective angiogram was carried out. The catheter was removed and manual pressure was applied to the groin. Operation carried out, aortofemoral angiogram via left groin. FINDINGS: No evidence of recurrent stenosis, right leg. Phil Bocanegra Jr., MD cc: Maurice Ly MD
== END | disposition home or self-care (01) ==
LOC: C.SPRAD 11:34 → C.CATHLAB 11:34
PROVIDERS: ATTEND Surgery Vascular Surgery
DX: I77.1 Stricture of artery (principal)
CPT/HCPCS: 36200; 75625; 75716; 76937; 82948; C1766; C1769; J2250; J3010; Q9966